=== PATIENT | female | born 1960 | race Caucasian/White ===

== ENCOUNTER 2016-06-27 12:10 | Emergency (ER) | payer MEDICARE, MEDICAID ==
[2016-06-27 12:23] VITALS: BP 118/44
--- NOTE | 2016-06-27 12:40 | ED ---
Lower Extremity - History of Current Complaint Chief Complaint: EDExtremityLower Stated Complaint: LT FOOT INJURY Time Seen by Provider: 06/27/16 12:27 Hx Obtained From: Patient Mechanism Of Injury: Unknown - stepped wrong on tree root 2 days ago and felt a sharp stabbing pain in foot Onset of Pain: Immediate Onset/Duration: Days - 2 Severity Initially: Severe Severity Currently: Moderate Pain Intensity: 7 Timing: Constant Location: Is Discrete @ - L lateral foot Character Of Pain: Sharp, Aching Associated Signs And Symptoms: Positive: Negative Aggravating Factor(s): Standing, Ambulation Alleviating Factor(s): Rest, Elevation Able to Bear Weight: Yes - with pain - Allergies/Home Medications Allergies/Adverse Reactions: Allergies Allergy/AdvReac Type Severity Reaction Status Date / Time Prednisone Allergy Severe GI Upset Verified 05/29/15 13:12 Hydrocodone [From Vicodin] Allergy Intermediate Rash Verified 05/29/15 13:12 Penicillins [PCN] Allergy Intermediate Rash Verified 05/29/15 13:12 Adhesive Tape Allergy Unknown Verified 05/29/15 13:12 Reaction Details Varenicline [From Chantix] Allergy Rash Verified 05/29/15 13:12 PMH/Surg Hx/FS Hx/Imm Hx Previously Healthy: Yes Endocrine/Hematology History: Denies: Hx Diabetes, Hx Thyroid Disease Cardiovascular History: Reports: Hx Angina Denies: Hx Coronary Artery Disease, Hx Hypercholesterolemia, Hx Hypertension , Hx Myocardial Infarction, Hx Valvular Heart Disease Respiratory History: Reports: Hx Chronic Obstructive Pulmonary Disease (COPD) Denies: Hx Asthma GI History: Denies: Hx Ulcer Musculoskeletal History: Denies: Other Musculoskeletal History Neurological History: Denies: Other Neuro Impairments/Disorders Psychiatric History: Denies: Other Psychiatric Issues/Disorders - Cancer History Hx Chemotherapy: No Hx Radiation Therapy: No - Surgical History Surgery Procedure, Year, and Place: gall bladder, lymph node removed, hysterectomy,hemorrhoid removed Infectious Disease History: Denies: Hx Clostridium Difficile, Hx Hepatitis, Hx Human Immunodeficiency Virus (HIV), Hx of Known/Suspected MRSA, Hx Shingles, Hx Tuberculosis, Hx Known/ Suspected VRE, Hx Known/Suspected VRSA, History Other Infectious Disease, Traveled Outside the [place] in Last 30 Days - Family History Known Family History: Positive: None - Social History Occupation: Unemployed Lives: With Family Alcohol Use: None Substance Use Type: Reports: None Smoking Status (MU): Heavy Every Day Tobacco Smoker Type: Cigarettes Amount Used/How Often: 1 ppd Length of Time of Smoking/Using Tobacco: 33 years Have You Smoked in the Last Year: Yes Cessation Counseling: Patient Advised to Stop Review of Systems Constitutional: Negative Cardiovascular: Negative Respiratory: Negative Musculoskeletal: Other - see note Skin: Negative Negative: Bruising Neurological: Negative Psychological: Normal All Other Systems Reviewed And Are Negative: Yes Physical Exam Triage Information Reviewed: Yes Vital Signs On Initial Exam: Initial Vitals Temp Pulse Resp BP Pulse Ox 97.1 F 60 16 118/44 99 06/27/16 12:20 06/27/16 12:20 06/27/16 12:20 06/27/16 12:20 06/27/16 12:20 Vital Signs Reviewed: Yes Appearance: Positive: Well-Appearing, No Pain Distress, Well-Nourished Skin: Positive: Warm, Skin Color Reflects Adequate Perfusion, Dry Respiratory/Lung Sounds: Positive: Clear to Auscultation Cardiovascular: Positive: Normal, RRR, Pulses are Symmetrical in both Upper and Lower Extremities Musculoskeletal: Positive: Strength/ROM Intact, Other - point tenderness L lat dorsal foot Neurological: Positive: Normal, Sensory/Motor Intact, Alert, Oriented to Person Place, Time Psychiatric: Positive: Normal Diagnostics - Vital Signs Vital Signs Temp Pulse Resp BP Pulse Ox 06/27/16 12:20 97.1 F 60 16 118/44 99 - Laboratory Lab Statement: Any lab studies that have been ordered have been reviewed, and results considered in the medical decision making process. Lower Extremity Course/Dx - Diagnoses Differential Diagnosis/HQI/PQRI: Positive: Contusion, Fracture (Closed), Sprain , Strain Provider Diagnoses: Strain of foot, left Discharge - Discharge Plan Condition: Stable Disposition: HOME Patient Education Materials: Muscle Strain (ED) Referrals: Bo Scott DO [Primary Care Provider] - 2 Weeks (as scheduled) Additional Instructions: elevate foot use janay and post-op shoe for 5-7 days. use tylenol or ibuprofen as directed for pain
--- NOTE | 2016-06-27 13:33 | RAD ---
Indication: Pain lateral aspect LEFT mid foot radiating to the toes following injury. Comparison: None. Technique: AP, lateral, and oblique views LEFT foot. Report: Normal articular alignment. No cortical disruption or suspicious trabecular irregularity to suggest fracture. No significant arthropathic change evident. Unremarkable soft tissue contours. IMPRESSION: No traumatic injury evident.
== END 2016-06-27 13:59 | disposition home or self-care (01) ==
LOC: ED 12:10
DX: S96.912A Strain of unspecified muscle and tendon at ankle and foot level, left foot, initial encounter (principal); X50.9XXA Other and unspecified overexertion or strenuous movements or postures, initial encounter; Y93.9 Activity, unspecified; Y92.9 Unspecified place or not applicable; Y99.9 Unspecified external cause status
CPT/HCPCS: 99282

== ENCOUNTER 2017-08-04 07:36 | Emergency (ER) | payer MEDICAID, MEDICARE ==
[2017-08-04 07:52] VITALS: BP 99/51
[2017-08-04] MEDS ORDERED: Albuterol/Ipratropium NEB.SOL* Albuterol 2.5 MG/Ipratropium 0.5 MG 3 ML INH ONE (08:11)
--- NOTE | 2017-08-04 08:16 | UC ---
Luis Crain Gabriel, scribed for Kylah Villa MD on 08/04/17 at 0756 . Respiratory Complaint HPI - HPI Summary HPI Summary: This patient is a 56 year old F [place] [facility] [place] a chief complaint of productive cough and congestion that began yesterday. The patient reports pain with cough. No chest pain. No shortness of breath. pain 0/10 in severity. Patient reports chills, low grade fever, and sore throat. Patient denies nausea , ear pain, and sinus pressure. Pt states she has been exposed to sick persons. Pt states up during night with cough. No OTC meds taken. Smokes 1/2 -1 ppd. Pt has not taken any medication and has not used her inhaler. She declines need inhaler refill. Unknown last prednisone. Hx COPD. Pt also c/o right arm pain and thinks she has osteoarthritis. Pt states she cannot lift it without pain. PT states worse after gardening last week. Pt is RHD. She takes 400mg of ibuprofen prn and last dose was last night. She states it makes it difficult to sleep. She has an appointment with an orthopedic surgeon at the end of the month for this pain. She also gets shots in the joint for the pain and they were working, but not any more. Pt requesting something for pain. No analgesia taken today Patients medication reviewed this visit. - History of Current Complaint Chief Complaint: UCRespiratory Stated Complaint: URI Time Seen by Provider: 08/04/17 07:40 Hx Obtained From: Patient Onset/Duration: Lasting Days - 1, Still Present Timing: Constant Severity Initially: Mild Severity Currently: Mild Pain Intensity: 0 Pain Scale Used: 0-10 Numeric Character: Cough: Productive Associated Signs And Symptoms: Positive: Negative - nausea, ear pain, and sinus pressure - Allergies/Home Medications Allergies/Adverse Reactions: Allergies Allergy/AdvReac Type Severity Reaction Status Date / Time acetaminophen [From Vicodin] Allergy Rash Verified 08/04/17 07:44 Adhesive Tape Allergy Unknown Verified 05/29/15 13:12 Reaction Details hydrocodone [From Vicodin] Allergy Rash Verified 08/04/17 07:44 Penicillins Allergy Rash Verified 08/04/17 07:44 prednisone Allergy GI Upset Verified 08/04/17 07:44 varenicline [From Chantix] Allergy Rash Verified 08/04/17 07:44 PMH/Surg Hx/FS Hx/Imm Hx Previously Healthy: Yes Respiratory History: COPD Cancer History: Cervical Cancer - Surgical History Surgical History: Yes Surgery Procedure, Year, and Place: gall bladder, lymph node removed, hysterectomy, - Family History Known Family History: Positive: Cardiac Disease, Respiratory Disease - COPD, Other - cancer Negative: Renal Disease, Seizure Disorder, Blood Disorder - Social History Occupation: Unemployed Lives: With Family Alcohol Use: Rare Substance Use Type: None Smoking Status (MU): Heavy Every Day Tobacco Smoker Type: Cigarettes Amount Used/How Often: 1 ppd Length of Time of Smoking/Using Tobacco: 33 years Have You Smoked in the Last Year: Yes Household Exposure Type: Cigarettes Review of Systems Constitutional: Fever, Chills ENT: Sore Throat Respiratory: Cough, Other - congestion Musculoskeletal: Other: - right shoulder pain All Other Systems Reviewed And Are Negative: Yes Physical Exam - Summary Physical Exam Summary: Vital Signs Reviewed: Yes A+Ox3, no distress intermittent cough Eyes: Conjunctiva Clear, CANDIE. EOM intact and full ENT: Hearing grossly normal TM x 2 clear, mmoist, uvula midline, no exudate, no erythema Neck: Positive: Supple Respiratory: Positive: No respiratory distress, No accessory muscle use, + BS throughout. scattered wheeze Cardiovascular: RRR nl s1, s2 no m/r CBT <2 sec abd soft + BS nt/nd no guarding, no distension Musculoskeletal Exam: + TTP right anterior shoulder with direct palp. Pain increases with extension and abduction. Little change with PROM. + flex/ext elbow, pronate/supinate no crepitus. no pain along clavicle Neurological: Positive: Alert, + sensation throughout + thumb up, a ok, finger spread 5/5 grasp Psychological: Positive: Normal Response To Family Skin: Positive: no rash, no ecchymosis Triage Information Reviewed: Yes Vital Signs: Initial Vital Signs Temp 99.5 F 08/04/17 07:46 Pulse 67 08/04/17 07:46 Resp 16 08/04/17 07:46 BP 99/51 08/04/17 07:46 Pulse Ox 98 08/04/17 07:46 Vital Signs Reviewed: Yes UC Diagnostic Evaluation - Laboratory O2 Sat by Pulse Oximetry: 98 - Radiology Radiology Interpretation Completed By: Radiologist - Shoulder Xray: 1. OSTEOPENIA.2. MILD OSTEOARTHRITIS. 3. NO ACUTE OSSEOUS INJURY. IF SYMPTOMS PERSIST, RECOMMEND REPEAT IMAGING. Dr. Villa has reviewed this report. - CT CT Interpretation Completed By: Radiologist - CXR: Stigmata of obstructive lung disease. No acute pulmonary or cardiac process evident. Dr. Villa has reviewed this report. Re-Evaluation - Re-Evaluation First Eval Re-Evaluation Time: 09:02 Change: Improved - The patients breathing has improved and her wheezing has resolved. She is declining [place] [facility]. Respiratory Course/Dx - Course Course Of Treatment: Pt presents with 2 complaints: 1) coarse cough and wheeze since last night Pt with scattered wheeze. Will give duo neb, cxr. anticipate prednisone, neb hold abx unless pna, decrese smoke, tessalon pearls. 2) right shoulder - anterior pain - will check imaging recommended motrin/apap. referral to [facility] ortho for ?earlier appt- pt in agreement with plan will offer sling for shoulder rest - Differential Dx/Diagnosis Provider Diagnoses: shoulder pain, right. URI Discharge - Sign-Out/Discharge Documenting (check all that apply): Discharge/Admit/Transfer - Discharge Plan Condition: Stable Disposition: HOME Prescriptions: predniSONE [Prednisone 20 MG TAB] 40 mg PO DAILY #5 tablet Patient Education Materials: Upper Respiratory Infection (ED), Shoulder Pain ( ED) Referrals: Bo Scott DO [Primary Care Provider] - Additional Instructions: For your cough: -Use your albuterol puffer - 2 puffs ever 4 hours for the next 2 days. Use your spacer. Then every 4 hours as needed -Stay well hydrated - avoid excess caffeine and all alcohol - eat regular, healthy meals - your symptoms may last for 7-10 days - take prednisone as prescribed until gone These infections are spread by oral secretions. Do not share eating or drinking utensils. Frequent hand washing is important. Clean items that may get your secretions on them such as cell phones, ipads, computer mouse, television remotes. Once you start to feel better, change your pillowcase and your toothbrush -Contact your doctor to arrange a follow-up appointment this week. Call your doctor, return here or go to the emergency department with any questions or concerns For your Shoulder: Wear sling for comfort and support. Take your arm out of your sling - make small circles in your shoulder and bend/straighten your elbow 3-4 times a day apply ice or heat for comfort and support Okay to alternate ibuprofen (Advil, Motrin) 600mg and Tylenol 1000mg every 3 hours for pain or fever. Take with food. Do NOT take for more than 4-5 days. Contact your orthopedic office to request a sooner appointment - Billing Disposition and Condition Condition: STABLE Disposition: Home The documentation as recorded by the Luis bear Gabriel accurately reflects the service I personally performed and the decisions made by , Kylah Villa MD.
--- NOTE | 2017-08-04 08:42 | RAD ---
INDICATION: Productive cough. COPD. Current tobacco use. COMPARISON: July 17, 2016 CT. TECHNIQUE: Dual energy PA and routine lateral views of the chest were obtained. REPORT: Elevated lung volumes. Mild chronic pleural parenchymal scarring at the medial segment of the RIGHT middle lobe and lingula based on correlation with CT. No suspicious focal pulmonary lesion, compelling alveolar consolidation, pleural effusion, pneumothorax. The heart, pulmonary vasculature, and mediastinal contours are unremarkable. Unremarkable soft tissue contours and osseous structures. IMPRESSION: Stigmata of obstructive lung disease. No acute pulmonary or cardiac process evident.
--- NOTE | 2017-08-04 08:42 | RAD ---
HISTORY: Right anterior shoulder pain COMPARISONS: None VIEWS: 4, Frontal internal rotation, external rotation, outlet, and axillary views of the right shoulder FINDINGS: BONE DENSITY: There is diffuse osteopenia. BONES: There is no displaced fracture. JOINTS: There is mild glenohumeral and a.c. osteoarthritis. ALIGNMENT: There is no dislocation. SOFT TISSUES: Unremarkable. OTHER FINDINGS: None. IMPRESSION: 1. OSTEOPENIA. 2. MILD OSTEOARTHRITIS. 3. NO ACUTE OSSEOUS INJURY. IF SYMPTOMS PERSIST, RECOMMEND REPEAT IMAGING.
== END 2017-08-04 09:15 | disposition home or self-care (01) ==
LOC: UCEAST 07:36
DX: J06.9 Acute upper respiratory infection, unspecified (principal); M25.511 Pain in right shoulder; M85.811 Other specified disorders of bone density and structure, right shoulder; M19.011 Primary osteoarthritis, right shoulder; J44.9 Chronic obstructive pulmonary disease, unspecified; Z85.41 Personal history of malignant neoplasm of cervix uteri; Z88.6 Allergy status to analgesic agent; Z88.5 Allergy status to narcotic agent; Z88.0 Allergy status to penicillin; Z88.8 Allergy status to other drugs, medicaments and biological substances; Z91.048 Other nonmedicinal substance allergy status; Z82.49 Family history of ischemic heart disease and other diseases of the circulatory system; Z83.6 Family history of other diseases of the respiratory system; Z80.9 Family history of malignant neoplasm, unspecified; F17.210 Nicotine dependence, cigarettes, uncomplicated
CPT/HCPCS: 71046; 99213; A9270-GY; G0463

== ENCOUNTER 2017-08-10 09:55 | Emergency (ER) | payer MEDICARE, MEDICAID ==
[2017-08-10] MEDS ORDERED: NS 0.9% 1000 ML* 1,000 ML IV ONE (10:27)
[2017-08-10] MEDS ORDERED: diPHENhydraMINE IV* 50 MG/ML 1 ml VIAL (BENADRYL) SLOW PUSH ONE (10:27)
[2017-08-10 10:43] LABS: Hematocrit 44 % (35-47); Hemoglobin 15.1 g/dl (12.0-16.0); Mean Corpuscular HGB Conc 34 g/dl (31-36); Mean Corpuscular Hemoglobin 30 pg (27-31); Mean Corpuscular Volume 89 fL (80-97); Mean Platelet Volume 7.4 um3 (7.4-10.4); Platelet Count 235 10^3/ul (150-450); Red Blood Count 4.98 10^6/ul (4.00-5.40); Red Cell Distribution Width 15 % (10.5-15)
--- NOTE | 2017-08-10 10:57 | RAD ---
HISTORY: THUNDERCLAP HEADACHE, EVAL FOR [facility] COMPARISONS: July 30, 2006 TECHNIQUE: Multiple contiguous axial CT scans were obtained of the head without intravenous contrast. FINDINGS: HEMORRHAGE/INFARCT: There is no hemorrhage or acute infarct. MASSES/SHIFT: There is no mass or shift. EXTRA-AXIAL SPACES: There are no extra-axial fluid collections. SULCI AND VENTRICLES: The sulci and ventricles are normal in size and position for the patient's stated age. CEREBRUM: There are no focal parenchymal abnormalities. BRAINSTEM: There are no focal parenchymal abnormalities. CEREBELLUM: There are no focal parenchymal abnormalities. VESSELS: The vessels are grossly normal. PARANASAL SINUSES: There is an air-fluid level within the right maxillary sinus. ORBITS: The orbits are unremarkable. BONES AND SOFT TISSUE: No bone or soft tissue abnormalities are noted. OTHER: None IMPRESSION: 1. NO ACUTE INTRACRANIAL PATHOLOGY. 2. MILD SINUS MUCOSAL INFLAMMATORY DISEASE, WITH AN AIR-FLUID LEVEL IN THE RIGHT MAXILLARY SINUS. IN THE CORRECT CLINICAL SETTING, THIS MAY REPRESENT ACUTE SINUSITIS
[2017-08-10] MEDS ORDERED: Magnesium Sulfate 2 GM IV* 2 GM/50 ML BAG IVPB ONE (11:14)
[2017-08-10] MEDS ORDERED: Metoclopramide IV* 5 MG/ML 2 ML VIAL IV SLOW PU ONE (11:14)
[2017-08-10 11:36] LABS: EGFR Non-African American 64.5 (>60)
[2017-08-10] MEDS ORDERED: guaiFENesin/CODIEN 100MG-10MG* 5 ML UDC PO ONE (13:24)
[2017-08-10] MEDS ORDERED: Dexamethasone IV* 4 MG/ML 1 ML (4 MG) IV SLOW PU ONE (13:24)
[2017-08-10] MEDS ORDERED: Iohexol 350* (CONTRAST) 500 ML MDV IV ONE (13:32)
--- NOTE | 2017-08-10 14:25 | RAD ---
HISTORY: OCCIPITAL THUNDERCLAP HEADACHE COMPARISONS: Head CT dated August 04, 2012 TECHNIQUE: Multiple contiguous axial CT scans were obtained of the head and neck after the administration of nonionic intravenous contrast timed to the systemic arterial phase of contrast enhancement. Coronal and sagittal multiplanar reformations are submitted for review. Multiple 3-D maximum intensity projection reconstructions are also submitted for review. FINDINGS: CTA NECK: AORTIC ARCH: There is a normal three-vessel branching pattern of the aortic arch. There is no ostial or proximal stenosis of the cephalic great vessels. RIGHT VERTEBRAL ARTERY: The right vertebral artery is patent along its course, without stenosis. LEFT VERTEBRAL ARTERY: The left vertebral artery is patent along its course, without stenosis. DOMINANCE: The vertebral arteries are codominant. RIGHT COMMON CAROTID ARTERY: The right common carotid artery is patent. The right carotid bifurcation occurs at C3-C4 RIGHT INTERNAL CAROTID ARTERY: There is no right internal carotid artery stenosis by NASCET criteria. RIGHT EXTERNAL CAROTID ARTERY: The right external carotid artery is unremarkable. LEFT COMMON CAROTID ARTERY: The left common carotid artery is patent. The left carotid bifurcation occurs at C3-C4 LEFT INTERNAL CAROTID ARTERY: There is no left internal carotid artery stenosis by NASCET criteria. LEFT EXTERNAL CAROTID ARTERY: The left external carotid artery is unremarkable. VENOUS CIRCULATION: The venous system is unremarkable. SALIVARY GLANDS: The parotid glands, submandibular glands, sublingual glands are normal. NASAL CAVITY/NASOPHARYNX: The nasal cavity and nasopharynx are normal. ORAL CAVITY/OROPHARYNX: The oral cavity is obscured by streak artifact from dental amalgam. The visualized oral cavity and oropharynx are unremarkable. LARYNGEAL APPARATUS/HYPOPHARYNX: The laryngeal apparatus and hypopharynx are normal. UPPER AIRWAY/UPPER ESOPHAGUS: The visualized upper airway and esophagus are normal. LUNG APICES: There is biapical and degenerative change THYROID GLAND: The thyroid gland is normal. LYMPH NODES: There is no lymphadenopathy by size criteria. BONES AND SOFT TISSUES: No bone or soft tissue abnormalities are noted. CTA HEAD: INTRACRANIAL CIRCULATION: There is no aneurysm, vascular malformation, occlusion, or stenosis of the visualized intracranial circulation. The anterior communicating artery complex is clear. Bilateral posterior communicating arteries are identified. VENOUS CIRCULATION: The venous system is unremarkable. PERFUSION: There is no obvious parenchymal perfusion deficit. HEMORRHAGE/INFARCT: There is no hemorrhage or acute infarct. MASSES/SHIFT: There is no mass or shift. EXTRA-AXIAL SPACES: There are no extra-axial fluid collections. SULCI AND VENTRICLES: The sulci and ventricles are normal in size and position for the patient's stated age. CEREBRUM: There are no focal parenchymal abnormalities. BRAINSTEM: There are no focal parenchymal abnormalities. CEREBELLUM: There are no focal parenchymal abnormalities. PARANASAL SINUSES: There are-fluid levels within the maxillary sinuses bilaterally. ORBITS: The orbits are unremarkable. BONES AND SOFT TISSUE: Mild degenerative changes are noted. OTHER: There is no abnormal enhancement. IMPRESSION: 1. NO ANEURYSM, VASCULAR MALFORMATION, OCCLUSION, OR STENOSIS OF THE VISUALIZED INTRACRANIAL CIRCULATION. 2. NO INTERNAL CAROTID ARTERY STENOSIS BY NASCET CRITERIA. 3. EMPHYSEMA. 4. MILD SINUS MUCOSAL INFLAMMATORY DISEASE, WITH AIR-FLUID LEVELS IN THE MAXILLARY SINUSES BILATERALLY.. IN THE CORRECT CLINICAL SETTING, THIS MAY REPRESENT ACUTE SINUSITIS CPT II Codes: 3100F
[2017-08-10 15:37] VITALS: BP 113/62
--- NOTE | 2017-08-10 21:43 | CONS ---
NEUROLOGY CONSULTATION REPORT: DATE OF CONSULT: 08/10/17 CONSULTING PROVIDER: Dr. Tao Chacon. REASON FOR CONSULT: Headache. CHIEF COMPLAINT: Headache. HISTORY OF PRESENT ILLNESS: Ms. Luiz Cristina is a 56-year-old female with history of arthritis and tobacco use, who has occasional headaches that resolve with Excedrin, 2-3 times a month, who had a sudden onset in severe headache mostly localized to the posterior head region. The headache started approximately at 12-1:00 a.m. At baseline, the patient stated that she has trouble lying on the back of her head due to tenderness around the back of the head. Therefore, she usually sleeps on her side. She woke up at 12-1:00 a.m. in the morning due to postnasal drip and thick phlegm that was going in the back of her throat making her cough. She was coughing for about an half hour before she suddenly developed the headache. The headache was described as sharp, 10/10 in severity, currently it is 1-2/10 in severity. The headache radiated up to the lateral surface of the ears and to the frontal region. The headache was constant for about 3 hours, but then she had about 30 minutes of sleep and then she woke up again with severe pain. The headache seems to exacerbate with the cough. She denied any visual disturbance or nausea/ vomiting. The patient had a CT head and CTA head and neck that showed no acute intracranial abnormality or large vessel occlusion or intracranial aneurysms. She has no family history of intracerebral aneurysm. The patient has received Reglan, magnesium, Benadryl, and Decadron in the ED, and that seemed to have significantly reduced her headaches. Dr. Chacon was concerned that the patient may have dysmetria to [id number] on the left side. I was unable to appreciate that on my examination. However, the patient does have chronic posture-induced tremors. She drinks 1 pot of coffee a day and she just recently drank a large cup of coffee which seem to increase her tremors. PAST MEDICAL HISTORY: Arthritis, degenerative disk disease of the lumbar spine , bone spurs, shoulder arthritis, sinus infections, tobacco use since the age of 11 where she averages 1 pack per day, and history of tension headache. PAST SURGICAL HISTORY: Hysterectomy and cholecystectomy. MEDICATIONS: 1. Flexeril. 2. Vitamins. ALLERGIES: VICODIN, PENICILLIN, CHANTIX, and ADHESIVE TAPE. FAMILY HISTORY: She has no family history of stroke or seizures. She has no family history of migraines. SOCIAL HISTORY: The patient is . She is on disability due to chronic pain. She rarely uses alcohol. She smokes tobacco 1 pack per day for over 40 years. REVIEW OF SYSTEMS: A 14-point review of systems was obtained and otherwise negative except for what was mentioned in the HPI. PHYSICAL EXAM: Vitals: Temperature 98.3, pulse 60, respiratory rate of 18, oxygen saturation 97%, blood pressure of 113/62. General: Well-nourished, well -developed female, in no acute distress. Head: Normocephalic without obvious abnormalities. She had significant tenderness to deep palpation in the occipital notch regions bilaterally with triggering radiating pain up to the rostral portion of the head. She had no superficial temporal artery tenderness. She had no jaw claudication. Eyes: Conjunctivae/corneas are clear. Funduscopic examination did not reveal any blurring of the disc margin. Neck: Supple and symmetrical. There is no carotid bruit. Lungs are clear to auscultation bilaterally. Cardiovascular: Regular rate and rhythm. Normal S1, S2. Extremities: Normal range of motion with no cyanosis. Skin: No skin lesions or laceration. Psych: Affect is broad and normal mood. Easy to establish rapport. The patient had high frequency tremor, left worse than right. She has no cogwheel rigidity. Neurological Examination: Mental Status : Awake and alert, oriented to person, place, time, and general circumstances. Speech and language including expression, naming, repetition, and comprehension were assessed and found to be normal. Cranial Nerves: Normal confrontation bilaterally. Pupils mid range and reactive to light. Normal consensual response. Extraocular muscles are intact. There is no ptosis. Sensation is intact in the forehead, cheeks, and jaw region. There is no facial droop or facial asymmetry. Able to hear throughout the history process. Symmetrical palatal elevation and normal strength against resistance to shoulder shrug. Tongue is symmetrical and midline with no atrophy or fasciculation. Motor: No abnormal movements or pronator drift. Normal bulk and tone throughout. No fasciculations. Neck extension 5/5. Shoulder range of motion is full. She has 5/5 strength throughout. Reflexes: 2+ throughout the upper and lower extremities. Reflexes: Sensation is intact to light touch throughout. Normal vibratory sensation at the toes. Coordination: Normal [id number] and rapid alternating movements. Gait and Station: Narrow based, normal stance and gait. LABORATORY DATA: The patient has a WBC of 7.1, hemoglobin of 15.1, platelets of 235. Sodium 140, potassium 4.4. ASSESSMENT: Ms. Luiz Cristina is a 56-year-old female with: 1. History of chronic tension-like headaches, who developed cough-induced occipital neuralgia. She had tenderness to the occipital notch region bilaterally. I do not suspect she had a subarachnoid hemorrhage given the negative CT head and CTA within 10 hours of the symptom onset. Her headaches have been well controlled with Reglan and Decadron. 2. Tobacco abuse - counseling was done. The patient is contemplating on discontinuing tobacco use. 3. The patient has essential tremor versus physiological tremor. She probably has physiological tremor related to her excessive caffeine intake. She also, rarely, but does use albuterol inhaler, which can exacerbate her tremor. There was no dysmetria noted on examination. RECOMMENDATIONS: At this time, I do not recommend any further therapy, but continue taking nonsteroidal anti-inflammatory for the headaches. She should not take more than 7 tablets on NSAID a week. If the headaches persist, then gabapentin 100 mg 3 times a day to slowly titrate to 300 mg 3 times a day can be considered. We discussed occipital nerve block procedure, which can be done in the office or by in a pain management clinic. At this time, the patient is not interested in any long- term therapy since her headache had significantly subsided. She should follow up with a neurologist. The contact information for [facility] was provided. I will sign off. TIME SPENT: I spent a total of 60 minutes and greater than 50% of that was spent directly reviewing the medical chart, obtaining history, examining the patient, education and counseling, and discussing the treatment plan as discussed above. I also discussed the treatment with Dr. Tao Chacon, who is comfortable in discharging the patient today. [id number]/[facility] #: [id number] [place]
--- NOTE | 2017-08-24 07:30 | ED ---
Mar Crain Simon, scribed for Tao Chacon MD on 08/10/17 at 1100 . Headache - HPI Summary HPI Summary: This patient is a 56 year old F presenting to [facility] with a chief complaint of GUZMAN from coughing since 0000 today, when she woke up with an uncontrollable cough. She stated my heads exploding. Pt doubts this is a migraine. She endorsed the pain started in back near spinal cord, but is now diffuse to whole head. Pts GUZMAN maximal at onset, and endorses its going down. She endorses sinus sx. Pt hydrated without relief, talking aggravates Sx, as does light. Chin to chest does not cause pain. Pt endorses mild nausea and chills. Pt smokes. Pt endorses PMHx HPV. Pt denies FHx for aneurisms. Pt just discontinued prednisone taken for 5 days for bronchitis. Pt did not feel stable enough to drive. Pt endorses allergies to penicillin, Vicodin, Chantix, and tape adhesive. - History Of Current Complaint Chief Complaint: EDHeadache Stated Complaint: HEADACHE Time Seen by Provider: 08/10/17 10:18 Hx Obtained From: Patient Onset/Duration: Started hours ago Initially Headache Was: Initial Pain Scale(0-10)= - 10, Severe Timing: Constant, Hours Location of Headache: Diffuse Aggravating Factor: Bright Lights, Other - speaking Associated Signs And Symptoms: Nausea - Allergies/Home Medications Allergies/Adverse Reactions: Allergies Allergy/AdvReac Type Severity Reaction Status Date / Time acetaminophen [From Vicodin] Allergy Rash Verified 08/10/17 09:57 Adhesive Tape Allergy Unknown Verified 08/10/17 09:57 Reaction Details hydrocodone [From Vicodin] Allergy Rash Verified 08/10/17 09:57 Penicillins Allergy Rash Verified 08/10/17 09:57 prednisone Allergy GI Upset Verified 08/10/17 09:57 varenicline [From Chantix] Allergy Rash Verified 08/10/17 09:57 Home Medications: Home Medications Aspirin/Acetaminophen/Caffeine [Excedrin Migraine Caplet] 2 cap PO Q6H PRN 08/10 [History Confirmed 08/10/17] Dm/PE/Acetaminophen/Doxylamine [Severe Cold & Flu Ni... 5-6.25-10-325 mg/15Ml] 30 ml PO Q6H PRN 08/10/17 [History Confirmed 08/10/17] guaiFENesin ER TAB [Mucinex*] 600 mg PO BID PRN 08/10/17 [History Confirmed 02/15] PMH/Surg Hx/FS Hx/Imm Hx Endocrine/Hematology History: Denies: Hx Diabetes, Hx Thyroid Disease Cardiovascular History: Reports: Hx Angina Denies: Hx Coronary Artery Disease, Hx Hypercholesterolemia, Hx Hypertension , Hx Myocardial Infarction, Hx Valvular Heart Disease Respiratory History: Reports: Hx Chronic Obstructive Pulmonary Disease (COPD) Denies: Hx Asthma GI History: Denies: Hx Ulcer Musculoskeletal History: Denies: Other Musculoskeletal History Sensory History: Denies: Hx Legally Blind Opthamlomology History: Denies: Hx Legally Blind EENT History: Denies: Hx Deafness Neurological History: Reports: Hx Headaches Denies: Other Neuro Impairments/Disorders Psychiatric History: Denies: Other Psychiatric Issues/Disorders - Cancer History Cancer Type, Location and Year: cerviacl Hx Chemotherapy: No Hx Radiation Therapy: No - Surgical History Surgery Procedure, Year, and Place: gall bladder, lymph node removed, hysterectomy, Infectious Disease History: No Infectious Disease History: Denies: Hx Clostridium Difficile, Hx Hepatitis, Hx Human Immunodeficiency Virus (HIV), Hx of Known/Suspected MRSA, Hx Shingles, Hx Tuberculosis, Hx Known/ Suspected VRE, Hx Known/Suspected VRSA, History Other Infectious Disease, Traveled Outside the [place] in Last 30 Days - Family History Known Family History: Positive: Cardiac Disease, Respiratory Disease - COPD, Other - cancer Negative: Renal Disease, Seizure Disorder, Blood Disorder - Social History Alcohol Use: Rare Substance Use Type: Reports: None Smoking Status (MU): Heavy Every Day Tobacco Smoker Type: Cigarettes Amount Used/How Often: 1 ppd Length of Time of Smoking/Using Tobacco: 33 years Have You Smoked in the Last Year: Yes Review of Systems Positive: Chills. Negative: Fever Positive: Photophobia. Negative: Erythema Positive: Sore Throat, Other - Sinus sx Negative: Chest Pain Positive: Cough. Negative: Shortness Of Breath Positive: Nausea. Negative: Vomiting Negative: dysuria, hematuria Negative: Arthralgia, Edema Negative: Rash Neurological: Other - NEGATIVE: Dizziness Positive: Headache All Other Systems Reviewed And Are Negative: Yes Physical Exam - Summary Physical Exam Summary: Constitutional: Well-developed, Well-nourished, Alert. (-) Distressed Skin: Warm, Dry HENT: Normocephalic; Atraumatic Eyes: Conjunctiva normal Neck: Musculoskeletal ROM normal neck. (-) JVD, (-) Stridor, (-) Tracheal deviation Cardio: Rhythm regular, rate normal, Heart sounds normal; Intact distal pulses; The pedal pulses are 2+ and symmetric. Radial pulses are 2+ and symmetric. (-) Murmur Pulmonary/Chest wall: Effort normal. (-) Respiratory distress, (-) Wheezes, (-) Rales Abd: Soft, (-), epigastric tenderness, (-) Distension, (-) Guarding, (-) Rebound Musculoskeletal: (-) Edema Lymph: (-) Cervical adenopathy Neuro: Alert, Oriented x3, dysmetria with [id number] test on left side. minimal improvement with IV removed Psych: Mood and affect Normal Triage Information Reviewed: Yes Vital Signs On Initial Exam: Initial Vitals Temp Pulse Resp BP Pulse Ox 98.2 F 58 16 122/73 97 08/10/17 09:57 08/10/17 09:57 08/10/17 09:57 08/10/17 09:57 08/10/17 09:57 Vital Signs Reviewed: Yes - [place] Coma Scale Best Eye Response: 4 - Spontaneous Best Motor Response: 6 - Obeys Commands Best Verbal Response: 5 - Oriented Coma Scale Total: 15 Diagnostics - Vital Signs Vital Signs Temp Pulse Resp BP Pulse Ox 08/10/17 09:57 98.2 F 58 16 122/73 97 - Laboratory Result Diagrams: 08/10/17 10:31 08/10/17 10:31 Lab Statement: Any lab studies that have been ordered have been reviewed, and results considered in the medical decision making process. - CT Brain CT Interpretation Completed By: Radiologist - 1. NO ACUTE INTRACRANIAL PATHOLOGY. 2. MILD SINUS MUCOSAL INFLAMMATORY DISEASE, WITH AN AIR-FLUID LEVEL IN THE RIGHT MAXILLARY SINUS. IN THE CORRECT CLINICAL SETTING, THIS MAY REPRESENT ACUTE SINUSITIS Dr. Chacon reviewed this radiology report. CTA head CT Interpretation Completed By: Radiologist - 1. NO ANEURYSM, VASCULAR MALFORMATION, OCCLUSION, OR STENOSIS OF THE VISUALIZED INTRACRANIAL CIRCULATION. 2. NO INTERNAL CAROTID ARTERY STENOSIS BY NASCET CRITERIA. 3. EMPHYSEMA. 4. MILD SINUS MUCOSAL INFLAMMATORY DISEASE, WITH AIR-FLUID LEVELS IN THE MAXILLARY SINUSES BILATERALLY.. IN THE CORRECT CLINICAL SETTING, THIS MAY REPRESENT ACUTE SINUSITIS Dr. Chacon has reviewed this report. Re-Evaluation - Re-Evaluation First Eval Re-Evaluation Time: 13:26 Comment: Discussed CTA head, pt is willing. Pt reports sinus sx now as well. Second Eval Re-Evaluation Time: 13:34 Change: Improved - still 2/10 GUZMAN Comment: Finished physical exam, removed IV with minimal improvement to dysmetria. Headache Course/Dx - Course Course Of Treatment: This patient is a 56 year old F presenting to [facility] with a chief complaint of GUZMAN from coughing since 0000 today, when she woke up with an uncontrollable cough. She endorsed the pain started in back near spinal cord, but is now diffuse to whole head. Pt's GUZMAN maximal at onset. Pt hydrated without relief, talking aggravates Sx, as does light. Chin to chest does not cause pain. Pt endorses mild nausea and chills. CT Brain revealed possible acute sinusitis. CTA head revealed possible acute sinusitis. Sensitivity of head ct for subarachnoid hemorrhage 6 hrs post sx onset 100 sensitivity. Pt presented 10.5 hrs so 93% sensitivity, discussed whether cta head would help to guide treatment and eval for possible hemorrhage. Also discussed LP maybe limited utility. Dr. Vera recommended cta head. Consult with Dr. Murrell 1316 for coming in to evaluate in ED. Consult with Dr. Murrell 1511, dx occipital neuralgia, recommends D/C and taking Gabapentin if the problem persists. - Diagnoses Provider Diagnoses: Occipital neuralgia - Physician Notifications Discussed Care Of Patient With: Desean Vera Time Discussed With Above Provider: 13:16 Instructed by Provider To: Other - sensitivity of head ct for subarachnoid hemorrhage 6 hrs post sx onset 100 sensitivity. Pt presented 10.5 hrs so 93% sensitivity, discussed whether cta head would help to guide treatment and eval for possible hemorrhage. Also discussed LP maybe limited utility. Dr. Vera recommended cta head. Discharge - Sign-Out/Discharge Documenting (check all that apply): Discharge/Admit/Transfer - discharge - Discharge Plan Condition: Stable Disposition: HOME Referrals: Bo Scott DO [Primary Care Provider] - Additional Instructions: Get non-drowsy allergy medication Claritin. RETURN TO THE EMERGENCY DEPARTMENT FOR ANY CHANGING OR WORSENING SYMPTOMS. - Billing Disposition and Condition Condition: STABLE Disposition: Home Consult Consult: [address] Murrell in regards to Dr. Murrell evaluating pt in ED. After evaluation, 1510, consult with Dr. Murrell who endorsed occipital neuralgia. He recommended D/C and follow up with him in 2-3 days, as well as taking gabapentin if the problem persists. The documentation as recorded by the Mar bear Simon accurately reflects the service I personally performed and the decisions made by me, Tao Chacon MD.
== END 2017-08-10 15:36 | disposition home or self-care (01) ==
LOC: ED 09:55
DX: M54.81 Occipital neuralgia (principal); J43.9 Emphysema, unspecified; F17.210 Nicotine dependence, cigarettes, uncomplicated; Z88.0 Allergy status to penicillin; Z88.5 Allergy status to narcotic agent; Z88.8 Allergy status to other drugs, medicaments and biological substances
CPT/HCPCS: 36415; 70450; 70496; 70498; 80053; 85027; 85652; 86140; 96365; 96375; 99282; A9270-GY; J1100; J1200; J2765; J3475; Q9967

== ENCOUNTER 2017-08-14 15:32 | Inpatient (IN) | payer MEDICARE, MEDICAID ==
[2017-08-14] MEDS ORDERED: NS 0.9% 1000 ML* 1,000 ML IV ONE (15:35)
[2017-08-14] MEDS ORDERED: cefTRIAXone(*) 1 GM in NS 0.9% 50 ML* 50 ML IVPB ONE (15:35)
--- NOTE | 2017-08-14 16:11 | RAD ---
HISTORY: sepsis COMPARISONS: August 04, 2017 VIEWS: 1: frontal portable view of the chest at 3:58 PM FINDINGS: LINES AND TUBES: None. CARDIOMEDIASTINAL SILHOUETTE: The cardiomediastinal silhouette is normal for portable technique. PLEURA: The costophrenic angles are sharp. No pleural abnormalities are noted. LUNG PARENCHYMA: The lungs are clear. ABDOMEN: The upper abdomen is clear. There is no subphrenic gas. BONES AND SOFT TISSUES: No bone or soft tissue abnormalities are noted. IMPRESSION: NO ACTIVE CARDIOPULMONARY DISEASE.
[2017-08-14 16:23] LABS: ABS Basophils 0.1 10^3/ul (0-0.2); ABS Eosinophils 0.1 10^3/ul (0-0.6); ABS Lymphocytes 2.6 10^3/ul (1.0-4.8); ABS Monocytes 0.6 10^3/ul (0-0.8); ABS Neutrophils 6.2 10^3/ul (1.5-7.7); ABS Nucleated RBC 0 10^3/ul; Eosinophil % 0.8 % (0-6); Hematocrit 46 % (35-47); Hemoglobin 15.8 g/dl (12.0-16.0); Lymphocyte % 27.3 % (25-47); Mean Corpuscular HGB Conc 35 g/dl (31-36); Mean Corpuscular Hemoglobin 31 pg (27-31); Mean Corpuscular Volume 88 fL (80-97); Mean Platelet Volume 7.6 um3 (7.4-10.4); Nucleated Red Blood Cells % 0.1; Platelet Count 233 10^3/ul (150-450); Red Blood Count 5.18 10^6/ul (4.00-5.40); Red Cell Distribution Width 14 % (10.5-15); White Blood Count 9.6 10^3/ul (3.5-10.8)
[2017-08-14 16:37] LABS: INR 0.99 (0.77-1.02)
[2017-08-14 16:43] LABS: EGFR Non-African American 70.9 (>60)
[2017-08-14] MEDS ORDERED: levETIRAcetam IV* 1,000 MG in NS 0.9% 100 ML* 100 ML IVPB ONE (17:33)
--- NOTE | 2017-08-14 17:34 | RAD ---
HISTORY: fall, possible injury. Altered COMPARISONS: December 22, 2008 TECHNIQUE: Multiple contiguous axial CT scans were obtained of the cervical spine without intravenous contrast, with coronal and sagittal multiplanar reformations. FINDINGS: BRAIN: The visualized brain is unremarkable CENTRAL CANAL: Evaluation of the central canal is limited on CT technique; however, there is no obvious canalicular mass or epidural hemorrhage. ALIGNMENT: There is straightening of the cervical lordosis. VERTEBRAL BODIES: The odontoid process is intact. The atlantoaxial intervals are symmetric. The vertebral bodies are normal in attenuation, without fracture. There is osteopenia. JOINTS: There is uncovertebral and facet osteoarthritis. There is osteoarthritis of the atlantoaxial articulation. MUSCULATURE: Unremarkable INTERVERTEBRAL DISCS: There is diffuse loss of intervertebral disc height. AXIAL IMAGES: C2-C3: There is no osseous neural foraminal narrowing or central canal stenosis. C3-C4: There is no osseous neural foraminal narrowing or central canal stenosis. C4-C5: There is no osseous neural foraminal narrowing or central canal stenosis. C5-C6: There is moderate bilateral neuroforaminal narrowing. There is no osseous central canal stenosis. C6-C7: There is no osseous neural foraminal narrowing or central canal stenosis. C7-T1: There is no osseous neural foraminal narrowing or central canal stenosis. SOFT TISSUES: The visualized soft tissues of the neck are unremarkable. The prevertebral fat stripe is preserved. OTHER: None. IMPRESSION: DEGENERATIVE CHANGES. NO ACUTE OSSEOUS INJURY TO THE CERVICAL SPINE.
--- NOTE | 2017-08-14 17:35 | RAD ---
HISTORY: altered level of consciousness COMPARISONS: August 10, 2017 CTA dated August 10, 2012 TECHNIQUE: Multiple contiguous axial CT scans were obtained of the head without intravenous contrast. FINDINGS: HEMORRHAGE/INFARCT: There is high attenuation material within the sulci of the right frontal lobe and left parietal lobe. Elsewhere, there is no hemorrhage or acute infarct. MASSES/SHIFT: There is no mass or shift. EXTRA-AXIAL SPACES: As noted above, there is high attenuation material within the sulci of the right frontal and left parietal lobe SULCI AND VENTRICLES: The sulci and ventricles are normal in size and position for the patient's stated age. CEREBRUM: There are no focal parenchymal abnormalities. BRAINSTEM: There are no focal parenchymal abnormalities. CEREBELLUM: There are no focal parenchymal abnormalities. VESSELS: The vessels are grossly normal. PARANASAL SINUSES: There are-fluid levels within the maxillary sinuses bilaterally. ORBITS: The orbits are unremarkable. BONES AND SOFT TISSUE: No bone or soft tissue abnormalities are noted. OTHER: None IMPRESSION: 1. HIGH ATTENUATION MATERIAL WITHIN THE SULCI OF THE RIGHT FRONTAL LOBE AND LEFT PARIETAL LOBE. THE DIFFERENTIAL INCLUDES SUBARACHNOID HEMORRHAGE. THIS IS NOT A TYPICAL ANEURYSMAL PATTERN OF HEMORRHAGE. THIS MAY RESENT COUP/CONTRECOUP HEMORRHAGE IN THE SETTING OF TRAUMA. 2. ALTERNATIVELY, PROTEINACEOUS MATERIAL, INCLUDING THE SETTING OF MENINGITIS, MAY APPEAR DENSE ON CT. 3. MODERATE SINUS MUCOSAL INFLAMMATORY DISEASE, WITH AIR-FLUID LEVELS IN THE MAXILLARY SINUSES BILATERALLY. IN THE CORRECT CLINICAL SETTING, THIS MAY REPRESENT ACUTE SINUSITIS PRELIMINARY FINDINGS WERE DISCUSSED WITH DR. ANSARI IN THE EMERGENCY DEPARTMENT AT APPROXIMATELY 5:20 PM ON AUGUST 14, 2017.
[2017-08-14] MEDS ORDERED: Ondansetron INJ* 2 MG/ML VIAL IV ONE (17:42)
[2017-08-14] MEDS ORDERED: Ondansetron ODT TAB* 4 MG ONE (17:45)
[2017-08-14] MEDS ORDERED: Ondansetron ODT TAB* 4 MG PO ONE (17:47)
[2017-08-14] MEDS ORDERED: Ondansetron 40 MG VIAL* 2 MG/ML 20 ML VIAL IV PRN (18:37)
[2017-08-14] MEDS ORDERED: guaiFENesin ER TAB 600 MG PO PRN (18:49)
[2017-08-14] MEDS ORDERED: Docusate CAP* 100 MG PO PRN (18:53)
--- NOTE | 2017-08-14 19:07 | ED ---
Larry Crain Jade, scribed for Emeterio Caraballo MD on 08/14/17 at 1618 . Syncope/Near Syncope - HPI Summary HPI Summary: Pt is a 56 y/o female BIBA who c/o generalized weakness. She states the weakness started 3 days ago, but today she was found on the floor of her driveway. Pt is unsure how long she was on the ground. She also complains of dizziness and headache. She states she was given headache medication. Pt is on a muscle relaxer, Zofran, and Doxycycline. She has a recent change in medications due to a change in doctors. Pt is wearing a neck brace due to her neck issues. Pt is a poor historian. She denies alcohol or drugs. Pt is a smoker. - History Of Current Complaint Chief Complaint: EDNeckComplaint Time Seen by Provider: 08/14/17 15:56 Hx Obtained From: Patient Onset/Duration: Sudden Onset, Lasting Days - 3 days Context: Unwitnessed Activity At Onset: Unknown Aggravating Factor(s): Nothing Alleviating Factor(s): Nothing Associated Signs And Symptoms: Dizzy, Headache - Allergies/Home Medications Allergies/Adverse Reactions: Allergies Allergy/AdvReac Type Severity Reaction Status Date / Time acetaminophen [From Vicodin] Allergy Rash Verified 08/14/17 15:55 Adhesive Tape Allergy Unknown Verified 08/14/17 15:55 Reaction Details hydrocodone [From Vicodin] Allergy Rash Verified 08/14/17 15:55 Penicillins Allergy Rash Verified 08/14/17 15:55 prednisone Allergy GI Upset Verified 08/14/17 15:55 varenicline [From Chantix] Allergy Rash Verified 08/14/17 15:55 Home Medications: Home Medications Budesonide/Formote 160/4.5(NF) [Symbicort 160/4.5 (NF)] 2 puff INH BID 08/14/17 [History Confirmed 08/14/17] Butalb/Acetamin/Caff TAB* [Fioricet TAB*] 1 tab PO Q4HR PRN 08/14/17 [History Confirmed 08/14/17] DOXYcycline CAP(*) [DOXYcycline 100MG CAP(*)] 100 mg PO BID 08/14/17 [History Confirmed 08/14/17] Fluticasone NASAL SPRAY 50MCG* [Flonase NASAL SPRAY 50MCG*] 2 spray BOTH NARES DAILY 08/14/17 [History Confirmed 08/14/17] Meloxicam(NF) [Mobic(NF)] 7.5 mg PO DAILY 08/14/17 [History Confirmed 08/14/17] Ondansetron TAB* [Zofran 4 MG Tab*] 4 mg PO BID PRN 08/14/17 [History Confirmed 08/14/17] PMH/Surg Hx/FS Hx/Imm Hx Endocrine/Hematology History: Denies: Hx Diabetes, Hx Thyroid Disease Cardiovascular History: Reports: Hx Angina Denies: Hx Coronary Artery Disease, Hx Hypercholesterolemia, Hx Hypertension , Hx Myocardial Infarction, Hx Valvular Heart Disease Respiratory History: Reports: Hx Chronic Obstructive Pulmonary Disease (COPD) Denies: Hx Asthma GI History: Denies: Hx Ulcer Musculoskeletal History: Denies: Other Musculoskeletal History Neurological History: Denies: Other Neuro Impairments/Disorders Psychiatric History: Denies: Other Psychiatric Issues/Disorders - Cancer History Cancer Type, Location and Year: cervical Hx Chemotherapy: No Hx Radiation Therapy: No - Surgical History Surgery Procedure, Year, and Place: gall bladder, lymph node removed, hysterectomy, Infectious Disease History: No Infectious Disease History: Denies: Hx Clostridium Difficile, Hx Hepatitis, Hx Human Immunodeficiency Virus (HIV), Hx of Known/Suspected MRSA, Hx Shingles, Hx Tuberculosis, Hx Known/ Suspected VRE, Hx Known/Suspected VRSA, History Other Infectious Disease, Traveled Outside the [place] in Last 30 Days - Family History Known Family History: Positive: Cardiac Disease, Respiratory Disease - COPD, Other - cancer Negative: Renal Disease, Seizure Disorder, Blood Disorder - Social History Alcohol Use: Rare Substance Use Type: Reports: None Smoking Status (MU): Heavy Every Day Tobacco Smoker Type: Cigarettes Amount Used/How Often: 1 ppd Length of Time of Smoking/Using Tobacco: 33 years Have You Smoked in the Last Year: Yes Review of Systems Negative: Fever Neurological: Other - Dizziness Positive: Headache, Weakness All Other Systems Reviewed And Are Negative: Yes Physical Exam - Summary Physical Exam Summary: Appearance: Well appearing, no pain distress Skin: warm, dry, reflects adequate perfusion Head/face: normal. No swelling. Eyes: EOMI, pupils mid-range and reactive ENT: Mucus membrane tacky. No sinus crushing tenderness. Neck: supple, midline neck tenderness Respiratory: CTA, breath sounds present Cardiovascular: RRR, pulses symmetrical Abdomen: non-tender, soft Bowel Sounds: present Musculoskeletal: normal, strength/ROM intact Neuro: normal, sensory motor intact, A&Ox3. No focal deficit. Global weakness. Able to sit up on her own. Triage Information Reviewed: Yes Vital Signs On Initial Exam: Initial Vitals Pulse BP Pulse Ox 49 165/69 93 08/14/17 15:41 08/14/17 15:41 08/14/17 15:41 Vital Signs Reviewed: Yes Diagnostics - Vital Signs Vital Signs Temp Pulse Resp BP Pulse Ox 08/14/17 15:57 93 08/14/17 15:50 98.6 F 65 19 165/69 90 08/14/17 15:42 53 92 08/14/17 15:41 49 165/69 93 - Laboratory Lab Results: Lab Results 08/14/17 08/14/17 08/14/17 Range/Units 16:10 16:10 16:10 WBC 9.6 (3.5-10.8) 10^3/ul RBC 5.18 (4.00-5.40) 10^6/ul Hgb 15.8 (12.0-16.0) g/dl Hct 46 (35-47) % MCV 88 (80-97) fL MCH 31 (27-31) pg MCHC 35 (31-36) g/dl RDW 14 (10.5-15) % Plt Count 233 (150-450) 10^3/ul MPV 7.6 (7.4-10.4) um3 Neut % (Auto) 64.8 (38-83) % Lymph % (Auto) 27.3 (25-47) % [place] % (Auto) 6.2 (0-7) % Eos % (Auto) 0.8 (0-6) % Baso % (Auto) 0.9 (0-2) % Absolute Neuts (auto) 6.2 (1.5-7.7) 10^3/ul Absolute Lymphs (auto) 2.6 (1.0-4.8) 10^3/ul Absolute Monos (auto) 0.6 (0-0.8) 10^3/ul Absolute Eos (auto) 0.1 (0-0.6) 10^3/ul Absolute Basos (auto) 0.1 (0-0.2) 10^3/ul Absolute Nucleated RBC 0 10^3/ul Nucleated RBC % 0.1 INR (Anticoag Therapy) 0.99 (0.77-1.02) APTT 29.3 (26.0-36.3) seconds Sodium 139 (135-145) mmol/L Potassium 3.8 (3.5-5.0) mmol/L Chloride 104 (101-111) mmol/L Carbon Dioxide 23 (22-32) mmol/L Anion Gap 12 H (2-11) mmol/L BUN 11 (6-24) mg/dL Creatinine 0.83 (0.51-0.95) mg/dL Est GFR ( Amer) 91.1 (>60) Est GFR (Non-Af Amer) 70.9 (>60) BUN/Creatinine Ratio 13.3 (8-20) Glucose 101 H (70-100) mg/dL Lactic Acid (0.5-2.0) mmol/L Calcium 9.5 (8.6-10.3) mg/dL Total Bilirubin 0.80 (0.2-1.0) mg/dL AST 46 H (13-39) U/L ALT 100 H (7-52) U/L Alkaline Phosphatase 75 (34-104) U/L Troponin I 0.00 (<0.04) ng/mL Total Protein 6.8 (6.4-8.9) g/dL Albumin 4.0 (3.2-5.2) g/dL Globulin 2.8 (2-4) g/dL Albumin/Globulin Ratio 1.4 (1-3) Serum Alcohol < 10 (<10) mg/dL 08/14/17 Range/Units 16:10 WBC (3.5-10.8) 10^3/ul RBC (4.00-5.40) 10^6/ul Hgb (12.0-16.0) g/dl Hct (35-47) % MCV (80-97) fL MCH (27-31) pg MCHC (31-36) g/dl RDW (10.5-15) % Plt Count (150-450) 10^3/ul MPV (7.4-10.4) um3 Neut % (Auto) (38-83) % Lymph % (Auto) (25-47) % [place] % (Auto) (0-7) % Eos % (Auto) (0-6) % Baso % (Auto) (0-2) % Absolute Neuts (auto) (1.5-7.7) 10^3/ul Absolute Lymphs (auto) (1.0-4.8) 10^3/ul Absolute Monos (auto) (0-0.8) 10^3/ul Absolute Eos (auto) (0-0.6) 10^3/ul Absolute Basos (auto) (0-0.2) 10^3/ul Absolute Nucleated RBC 10^3/ul Nucleated RBC % INR (Anticoag Therapy) (0.77-1.02) APTT (26.0-36.3) seconds Sodium (135-145) mmol/L Potassium (3.5-5.0) mmol/L Chloride (101-111) mmol/L Carbon Dioxide (22-32) mmol/L Anion Gap (2-11) mmol/L BUN (6-24) mg/dL Creatinine (0.51-0.95) mg/dL Est GFR ( Amer) (>60) Est GFR (Non-Af Amer) (>60) BUN/Creatinine Ratio (8-20) Glucose (70-100) mg/dL Lactic Acid 0.7 (0.5-2.0) mmol/L Calcium (8.6-10.3) mg/dL Total Bilirubin (0.2-1.0) mg/dL AST (13-39) U/L ALT (7-52) U/L Alkaline Phosphatase (34-104) U/L Troponin I (<0.04) ng/mL Total Protein (6.4-8.9) g/dL Albumin (3.2-5.2) g/dL Globulin (2-4) g/dL Albumin/Globulin Ratio (1-3) Serum Alcohol (<10) mg/dL Result Diagrams: 08/14/17 16:10 08/14/17 16:10 Lab Statement: Any lab studies that have been ordered have been reviewed, and results considered in the medical decision making process. - Radiology CXR Xray Interpretation: No Acute Changes - NO ACTIVE CARDIOPULMONARY DISEASE. ED physician reviwed radiology report. Radiology Interpretation Completed By: Radiologist - CT 15:41 CT Interpretation: Positive (See Comments) - Cervical Spine CT: DEGENERATIVE CHANGES. NO ACUTE OSSEOUS INJURY TO THE CERVICAL SPINE. ED physician reviewed radiology report. CT Interpretation Completed By: Radiologist 15:40 CT Interpretation: Positive (See Comments) - Brain CT: 1. HIGH ATTENUATION MATERIAL WITHIN THE SULCI OF THE RIGHT FRONTAL LOBE AND LEFT PARIETAL LOBE. THE DIFFERENTIAL INCLUDES SUBARACHNOID HEMORRHAGE. THIS IS NOT A TYPICAL ANEURYSMAL PATTERN OF HEMORRHAGE. THIS MAY RESENT COUP/CONTRECOUP HEMORRHAGE IN THE SETTING OF TRAUMA. 2. ALTERNATIVELY, PROTEINACEOUS MATERIAL, INCLUDING THE SETTING OF MENINGITIS, MAY APPEAR DENSE ON CT. 3. MODERATE SINUS MUCOSAL INFLAMMATORY DISEASE, WITH AIR-FLUID LEVELS IN THE MAXILLARY SINUSES BILATERALLY. IN THE CORRECT CLINICAL SETTING, THIS MAY REPRESENT ACUTE SINUSITIS. ED physician reviewed radiology report. CT Interpretation Completed By: Radiologist Course/Dx Course Of Treatment: Patient with recent evaluation for headache and workup for subarachnoid hemorrhage. Negative CT, CTA at that time. Today she is feeling weak and fell. It is unknown if she had head injury but she thinks not. Subarachnoid hemorrhage is confirmed on the CT scan and according to the radiologist appears as coup/countercoup type injury, likely from trauma. She has some mild confusion and generalized weakness without focality of neurologic deficit. It is unknown if she had syncope or loss of consciousness during this time. Neurosurgery was contacted and will see the patient in consult. She is on no antiplatelet or blood thinner agents. Her pain, nausea was treated. She' ll be admitted to the ICU for neuro checks and evaluation by neurosurgery. - Diagnoses Differential Diagnosis/HQI/PQRI: Positive: Other - Toxicologic, metabolic, intracranial injury, inadvertent overdose, UTI Provider Diagnoses: Subarachnoid hemorrhage, Generalized weakness, Fall - Physician Notifications Discussed Care of Patient With: Juliana Duval from neurosurgery was contacted and will see the patient in ICU Time Discussed With Above Provider: 17:39 Instructed by Provider To: Admit As Inpatient - ICU - Critical Care Time Critical Care Time: 30-74 min - CCT is exclusive of separate billable procedures Discharge - Sign-Out/Discharge Documenting (check all that apply): Discharge/Admit/Transfer - Admit - Discharge Plan Condition: Guarded Disposition: ADMITTED TO [facility] Referrals: Bo Scott DO [Primary Care Provider] - - Billing Disposition and Condition Condition: GUARDED Disposition: Admitted to [facility] The documentation as recorded by the Larry bear Jade accurately reflects the service I personally performed and the decisions made by , Emeterio Caraballo MD.
[2017-08-14] MEDS ORDERED: NS 0.9% 1000 ML* 1,000 ML IV SCH (19:15)
[2017-08-14 19:34] LABS: Urine Appearance Cloudy; Urine Blood Negative (Negative); Urine Color Yellow; Urine Ketones Negative (Negative); Urine Protein 2+(100 mg/dL) (Negative); Urine Red Blood Cell Trace(0-2/hpf) (Absent); Urine Specific Gravity 1.011 (1.010-1.030); Urine Urobilinogen Negative (Negative); Urine White Blood Cell 3+(>20/hpf) (Absent)
[2017-08-14] MEDS ORDERED: LORazepam INJ* 2 MG/ML 1 ML VIAL IV PRN (20:41)
[2017-08-14] MEDS ORDERED: LORazepam INJ* 2 MG/ML 1 ML VIAL ONE (20:41)
--- NOTE | 2017-08-14 20:43 | PN ---
Progress Note - Progress Note Date of Service: 08/14/17 Note: Patient agitated & needing sedation for MRI which while sedation is not ideal given the need to monitor her neuro-status, the MRI is felt to be important enough to warrant lose dose attempts to obtain.
--- NOTE | 2017-08-14 22:07 | RAD ---
HISTORY: Neurological Deficits, Subarachnoid Hemorrhage COMPARISONS: Head CT dated August 14, 2017 TECHNIQUE: The following sequences were obtained of the head: Sagittal T1-weighted images, axial T2-weighted images, axial FLAIR images, axial susceptibility weighted images, axial T1-weighted images. Additionally, axial diffusion-weighted images were obtained with calculated apparent diffusion coefficients. FINDINGS: HEMORRHAGE/INFARCT: There is loss of conversion with susceptibility artifact along the right frontal and left parietal sulci consistent with subarachnoid hemorrhage noted on CT. MASSES/SHIFT: There is no mass or shift. EXTRA-AXIAL SPACES/MENINGES: As noted above, there is subarachnoid hemorrhage along the right frontal and left parietal lobes. SULCI AND VENTRICLES: The sulci and ventricles are normal in size and position for the patient's stated age. CEREBRUM: There are no focal parenchymal abnormalities. BRAINSTEM: There are no focal parenchymal abnormalities. CEREBELLUM: There are no focal parenchymal abnormalities. The cerebellar tonsils are normal in size and position. SELLA: The sella is normal. PINEAL: The pineal region is clear. CP ANGLE/TEMPORAL BONES: The labyrinthine structures are grossly normal. VESSELS: Normal flow-voids are noted within the visualized vertebral vasculature. DIFFUSION ABNORMALITIES: There are no diffusion abnormalities. PARANASAL SINUSES/MASTOIDS: Again noted are fluid levels within the maxillary sinuses bilaterally. ORBITS: The orbits are unremarkable. BONES AND SOFT TISSUE: No bone or soft tissue abnormalities are noted. OTHER: None IMPRESSION: 1. AGAIN NOTED IS RIGHT FRONTAL AND LEFT PARIETAL SUBARACHNOID HEMORRHAGE. 2. NO RESTRICTED DIFFUSION TO SUGGEST ACUTE INFARCT.
--- NOTE | 2017-08-14 22:09 | RAD ---
HISTORY: Neck Pain, Fall COMPARISONS: CT dated August 14, 2014 TECHNIQUE: The following sequences were obtained of the cervical spine: Sagittal T1- and T2-weighted images, sagittal STIR images, axial T2 and gradient echo images. FINDINGS: BRAIN AND SPINAL CORD: The visualized spinal cord is normal in caliber, position, and signal intensity. The visualized portion of the brain is unremarkable. The cerebellar tonsils are normal in position. ALIGNMENT: The alignment is normal. VERTEBRAL BODIES: There is mild anterolateral marginal osteophyte formation. JOINTS: There is mild uncovertebral and facet osteoarthritis, more pronounced at C5-C6. MUSCULATURE: Unremarkable INTERVERTEBRAL DISCS: There is diffuse loss of intervertebral disc height and T2 signal throughout the spine. AXIAL IMAGES: C2-C3: There is no disc herniation, spinal stenosis, or neuroforaminal narrowing. C3-C4: There is bilateral vertebral hypertrophy. There is no significant neuroforaminal narrowing. There is mild narrowing of the central canal. C4-C5: There is no disc herniation, spinal stenosis, or neuroforaminal narrowing. C5-C6: There is bilateral uncovertebral and facet hypertrophy. There is severe bilateral neuroforaminal narrowing. There is mild narrowing of the central C6-C7: There is no disc herniation, spinal stenosis, or neuroforaminal narrowing. C7-T1: There is no disc herniation, spinal stenosis, or neuroforaminal narrowing. SOFT TISSUES: The visualized soft tissues of the neck are unremarkable. OTHER: None. IMPRESSION: 1. DEGENERATIVE DISC DISEASE AND OSTEOARTHRITIS MOST PRONOUNCED AT C5-C6. 2. THERE IS SEVERE BILATERAL NEURAL FORAMINAL NARROWING C5-C6. 3. THERE IS MILD NARROWING OF THE CENTRAL CANAL AT C3-C4 AND C4-C5.
[2017-08-14] MEDS: Mometasone/Formoter 200/5 MDI INH SCH (22:46)
[2017-08-14] MEDS: DOXYcycline CAP(*) 100 MG PO SCH (22:58)
[2017-08-14] MEDS: levETIRAcetam TAB* 500 MG PO SCH (22:58)
--- NOTE | 2017-08-15 01:04 | HP ---
CC: Dr. Scott; Aylin Pompa MD * ADMISSION HISTORY AND PHYSICAL: DATE OF ADMISSION: 08/14/17 PRIMARY CARE PROVIDER: Dr. Scott. MY ATTENDING WHILE IN THE HOSPITAL: Greg Arambula MD * (DICTATED BY GUI HARRELL) CONSULTING NEUROSURGEON: Aylin Pompa MD CHIEF COMPLAINT: Fall and headache. HISTORY OF PRESENT ILLNESS: Ms. Cristina is a 56-year-old female with past medical history significant for arthritis, degenerative disk disease, shoulder arthritis, bone spurs, COPD, chronic neck and back pain who presents with headaches for approximately 2 weeks that have gotten worse over the past week. The patient was previously seen and evaluated in the emergency department on 02/15 for what was reported to be the worst headache of her life by Dr. Ivan Murrell of Neurology. She was seen and had a CTA of her head, which showed no acute intracranial abnormality. The patient was diagnosed with chronic tension- like syndromes with occipital neuralgia. Her headache was controlled with Reglan and Decadron. She was instructed to take ibuprofen for her headaches, which she had been taking twice a day, approximately 200 mg, she believes. The patient states that she had been sleepy for the 3 days before she came in and her neighbor had been checking on her and she feels she just she slept for 3 days, but she is a very historian and often trails off and perseverates on what has been going on to her and has very inconsistent stories. The patient complains that her "brain is not connecting to her body" stating that when she tries to use particularly her right hand, she is having difficulty with activities of daily living such as dialing a phone. She will find that when she tries to press the 8 button, she ends up pressing different buttons and it is frustrating for her. She denies taking too many medications. Denies drug abuse. She still smokes 1 pack per day of cigarettes. She states that her headache started approximately 2 weeks ago when she tried a new brand of cigarettes that she never tried before, but is not continuing to use those. The patient describes her headache as band like in the back of her head and going down to back of her neck with severe tenderness to palpation over the base of her skull and posterior neck. The patient states that she fell a week ago and hit her head very hard and states that she just remembered this now and did not tell it to the emergency department physicians or neurologist before when she came in. She denies any other falls. The patient had a CT of her head , which showed a subarachnoid hemorrhage and consistent with a coup-contrecoup injury and a CT of her cervical spine, which showed no acute abnormality. The patient had no radicular symptoms from her neck. The patient is very bothered by the cervical collar that was placed on her by EMS due to it pressing on the back of her neck, which is a very tender spot due to her headaches. Due to subarachnoid hemorrhage, altered mental status, and possible neurological deficits, we were asked to evaluate for admission. PAST MEDICAL HISTORY: 1. Arthritis. 2. Degenerative disk disease. 3. Tension headache. 4. Bone spurs. 5. Shoulder arthritis. PAST SURGICAL HISTORY: 1. Cholecystectomy. 2. Hysterectomy. MEDICATIONS: The patient's neighbor brought in her medications from home, which she states she has been taking and those consist of: 1. Doxycycline 100 mg p.o. b.i.d. 2. Baclofen 20 mg p.o. t.i.d. as needed. 3. Zofran 4 mg b.i.d. as needed. 4. The patient also states she has been taking ibuprofen 200 mg p.o. twice daily. The patient's medication reconciliation also includes: 1. Guaifenesin 600 mg p.o. b.i.d. as needed severe cold and flu, liquid 30 mL p.o. q.6 hours as needed. 2. Excedrin Migraine 2 caps p.o. q.6 hours as needed for headache. 3. Meloxicam 7.5 mg p.o. daily. 4. Fluticasone 2 sprays both nares daily. 5. Symbicort 2 puffs inhalation b.i.d. 6. Fioricet 1 tab p.o. q.4 hours as needed. It is unclear whether the patient is taking these medications. ALLERGIES: The patient has an allergy to PENICILLIN, ADHESIVE TAPE, VICODIN, PREDNISONE, and CHANTIX. FAMILY HISTORY: The patient's father of COPD. The patient's mother of infection related to a G-tube. The patient has several brothers and sisters who have had AAA surgery. The patient has a brother who this year of stomach cancer. SOCIAL HISTORY: The patient is a 1-pack per day smoker for approximately 40 years. The patient denies alcohol use. The patient denies illicit drug use. The patient is on disability for her back and neck. The patient is and has 3 children. REVIEW OF SYSTEMS: A 14-point review of systems was reviewed with the patient and pertinent positives and negatives are as above in the HPI. The patient is a poor historian and is unclear whether she understood exactly what was being asked of her. PHYSICAL EXAMINATION GENERAL: The patient is a 56-year-old female, who appears to age, sitting in the bed with consistent phrenetic movement. VITAL SIGNS: Temperature 98.6, pulse rate 49, respiratory rate 18, oxygen saturation 93% on room air, blood pressure 154/74. HEENT: Head is normocephalic, atraumatic. Sclerae anicteric. No conjunctival injection. Nasal mucosa moist. Oral mucosa moist. No pharyngeal erythema, discharge, or exudate. Tenderness to palpation over the frontal and maxillary sinuses. NECK: Supple. No lymphadenopathy. No carotid bruit auscultated. No JVD. Tenderness to light palpation over the posterior neck including the spinous processes. RESPIRATORY: Clear to auscultation bilaterally. No wheezes, rales, or rhonchi. Good air exchange bilaterally. CARDIAC: Regular rate and rhythm. No clicks, murmurs, gallops, or rubs. Pulses 2+ in the bilateral dorsalis pedis, posterior tibialis, and radial areas. No calf tenderness noted. Lower extremity edema noted. ABDOMEN: Soft, nontender, nondistended. Bowel sounds present. Normoactive in all 4 quadrants. No hepatosplenomegaly. No abdominal bruits auscultated. GENITOURINARY: No suprapubic or CVA tenderness. NEURO: Cranial nerves II through XII intact. Alert only to self and place. The patient does not know what day, month, or year it is. The patient does know who the President is. The patient is a poor historian and tends to perseverate. The patient has no focal deficits. The patient has preserved sensation to light touch in the upper and lower extremities distally and proximally. The patient has 4/5 strength in the bilateral upper and lower extremities distally and proximally. The patient is poorly cooperative with neurological testing. [id number] exam performed slowly but without difficulty. Repeated finger taps are slow but symmetrical bilaterally. SKIN: Clean, dry, intact. No rash. PSYCHIATRIC: Pleasant, but anxious. LABORATORY DATA: White blood count 9.6, hemoglobin 15.8, hematocrit 46, platelet count 233. INR 0.99. APTT 29.3. Sodium 139, potassium 3.8, chloride 104, carbon dioxide 23, anion gap 12, BUN 11, creatinine 0.83, glucose 101, lactic acid 0.7, calcium 9.5. Total bilirubin 1.8, AST 46, ALT 100, alkaline phosphatase 75. Troponin I 0.00. Total protein 6.8. Albumin 4.0, globulin 2.8. Serum alcohol less than 10. Studies done while in the hospital, chest x-ray read as no acute cardiopulmonary disease. Electrocardiogram read as normal sinus rhythm. No ST segment abnormalities. No hypertrophy or enlargement. Rate of 52, QTc of 451. No other abnormalities. Brain CT from 08/14/17 read as high attenuation material within the sulci of the frontal lobe and left parietal lobe. The differential includes subarachnoid hemorrhage. This is not a typical aneurysmal pattern of hemorrhage. This may present coup-contrecoup hemorrhage in the setting of trauma, alternatively proteinaceous material may enhance similarly in the setting of meninigitis. Sinus mucosal inflammatory disease with air-fluid levels in the maxillary sinuses bilaterally, in the current clinical setting, this may represent acute sinusitis. Cervical spine CT from 08/14/17 read as degenerative changes, no acute osseous injury to the cervical spine. ASSESSMENT AND PLAN: 1. Impression: Ms. Cristina is a 56-year-old female with past medical history significant for degenerative disk disease, arthritis, and tension headaches who presents with ongoing headaches for 2 weeks for which she was previously evaluated with negative CT and CTA on 08/10/17 with a new fall today, which she states consists of her lowering herself to the ground, but was found to have new subarachnoid hemorrhage with a traumatic coup-contrecoup pattern. The patient will be admitted to the ICU for close neurological monitoring and will be seen in consultation by Neurosurgery. 2. Subarachnoid hemorrhage. Appreciate Neurosurgery consultation. The patient will be started on Keppra for seizure prophylaxis. The patient will have fluids at 75 mL an hour. The patient will have neurological checks every 1 hour to assess for deterioration. The patient has a normal neurological exam except for altered mental status and subjective description of the patient having difficulty using her right hand particularly for tasks. This could correspond to a stroke in the region around her subarachnoid hemorrhage. We will get a stat MRI to assess for this. Due to the patient's altered mental status, pain control will be with Tylenol only. The patient should avoid NSAIDs due to concern for bleeding, as well as opiates and muscle relaxants as they are sedating and alter mental status. The patient will have a repeat brain CT in the morning. 3. Altered mental status. It is unclear what is causing the patient's altered mental status. The patient denies taking too much of her psychoactive medication including baclofen. The patient, by provider reports, was not like this on previous evaluation. The patient has elevated LFTs, which were not present before. The patient denies drinking alcohol. The patient's serum alcohol is negative. We will check an ammonia as this may be contributing to the altered mental status. Urinary drug screen is also pending. The patient had a negative CRP. No fevers. The patient does not have nuchal rigidity. This is unlikely a manifestation of meningitis, given the patient's CT scan of the her head, threshold for starting empiric antibiotic treatment should be low if the patient develops high fevers. The patient has an elevated anion gap with no other apparent acid-base abnormality. We will monitor closely for deterioration of mental status. 4. Degenerative disk disease with chronic pain in the neck. We will hold baclofen and other stated pain medications at this time due to altered mental status. 5. Chronic obstructive pulmonary disease. The patient has COPD, not listed in her past medical history and she denies any nausea, but she did have a long- term history of smoking and has been prescribed Symbicort in the past. We will continue this while in the hospital. 6. Tension headaches. The patient's headache likely also has a tension component to it. The patient should follow up outpatient after the acute phase of her subarachnoid hemorrhage for control of this as discussed with Dr. Murrell previously. 7. DVT prophylaxis: The patient will have SCDs in the setting of subarachnoid hemorrhage. 8. Fluids, electrolytes, and nutrition: The patient will have fluids 75 mL an hour and a heart healthy diet without caffeine. 9. Disposition: The patient will be admitted to the ICU for close neurologic monitoring. 10. Code status: The patient would like to be a full code. The patient's surrogate decision maker is her brother, Dru Rivera. TIME SPENT: Approximately 90 minutes was spent on this admission, 45 of which was spent [id number] with the patient obtaining history and physical and discussing treatment plan. This plan has been discussed with my attending, Dr. Greg Arambula, and he is in agreement. GUI HARRELL [id number]/[facility] #: [id number] MTDChano
[2017-08-15] MEDS: Acetaminophen TAB* 325 MG PO PRN ×4 (02:37→23:57)
--- NOTE | 2017-08-15 05:00 | CONS ---
CONSULTATION REPORT: DATE OF CONSULT: 08/15/17 HISTORY OF PRESENT ILLNESS: The patient is a very pleasant 56-year-old female, who had recently sustained a fall a few days ago, and she reports at that time she tripped and fell. She had a workup for generalized weakness including a CT of the head, and CT of the head was negative. Today, she was found on the floor of her driveway. The patient does not recall if she tripped or had the syncopal episode. There were no witnesses. The patient denies any seizure, denies any neck or back pain. She has chronic neck pain and the patient is disabled because of chronic back pain, but she reports that everything is in her baseline. The patient denies any weakness, numbness, or tingling of extremities. She reports that she had 1 episode of urinary and GI incontinence with diarrhea this morning before the episode of her being found on the driveway. The patient is single, lives alone, and she has been on disability because of chronic complaints of back pain. PAST MEDICAL HISTORY: Angina, COPD. The patient is a poor historian. PAST SURGICAL HISTORY: Cholecystectomy, lymph node removed, hysterectomy. HOME MEDICATIONS: 1. Budesonide. 2. Acetaminophen. 3. Caffeine. 4. Doxycycline. 5. Fluticasone. 6. Meloxicam. 7. Ondansetron. ALLERGIES: ACETAMINOPHEN, ADHESIVE TAPE, HYDROCODONE, PENICILLIN, PREDNISONE, CHANTIX. FAMILY HISTORY: Cardiac history, respiratory disease, cancer. SOCIAL HISTORY: Tobacco, positive everyday smoker. Alcohol, occasional. Recreational drug use, negative. PHYSICAL EXAM: The patient is not in acute distress. She is in the ICU bed, returned from her MRI of the brain and cervical spine. She is in a cervical collar. The patient received IV Ativan for the MRI. I had a discussion with the ICU nurse. The patient is very close to her baseline as reported by her brother on the phone. The patient is awake, alert, oriented x1. Her pupils are equal and reactive. Cranial nerves II through XII are grossly intact. Motor 4-5/5 in the lower extremities. No pronator drift. Sensory is grossly intact to light touch. Deep tendon reflex +1 bilaterally. No clonus. No Babinski. Ramachandran's negative. Straight leg test is negative in sitting position. The patient has no pain to palpation of cervical, thoracic, and lumbar spine. She has free range of motion of cervical spine. Rectal exam was normal. The patient has voluntary contraction of her sphincter and has good perianal sensation. DIAGNOSTIC STUDIES: The patient had a CT scan of the brain revealing right frontal, left parietal subarachnoid hemorrhage. The patient had also an MRI of the brain with similar findings without evidence of acute stroke. The patient had a CT scan of the cervical spine revealing degenerative disk disease without evidence of acute fracture. The patient had an MRI of the cervical spine that reveals degenerative disk disease especially at C5-6 with bilateral neural foraminal stenosis without evidence of acute changes in the STIR sequences. The patient had thoracic and lumbar spine x-rays that did not reveal any evidence of significant fracture. The official report is still pending. ASSESSMENT: The patient is a very pleasant 56-year-old female with history of generalized weakness and headache that was reported to be found down after a possible fall or syncopal episode with significant findings consistent with likely traumatic subarachnoid hemorrhage. PLAN: The patient, at this point, is doing quite well. Based on the characteristics of the imaging and as report by Radiology, likelihood of aneurysmal subarachnoid hemorrhage is extremely low. The patient had a negative CTA and CT prior to this admission. At this time, we recommend monitoring vital signs and neuro checks. Seizure prophylaxis for 7 days. Monitor labs. Cervical collar was removed. We will repeat a CAT scan of the brain in the morning. Discussed the plan with the patient. Thank you very much for allowing us to participate in the care of this patient. Please do not hesitate to contact our office in case you have any further questions or concerns regarding the care of this patient. Markie Pompa MD [id number]/[facility] #: [id number] YOKASTA
[2017-08-15 06:12] LABS: ABS Basophils 0 10^3/ul (0-0.2); ABS Eosinophils 0.1 10^3/ul (0-0.6); ABS Lymphocytes 3.1 10^3/ul (1.0-4.8); ABS Monocytes 0.6 10^3/ul (0-0.8); ABS Neutrophils 4.4 10^3/ul (1.5-7.7); ABS Nucleated RBC 0 10^3/ul; Eosinophil % 1.3 % (0-6); Hematocrit 40 % (35-47); Hemoglobin 14.1 g/dl (12.0-16.0); Lymphocyte % 37.2 % (25-47); Mean Corpuscular HGB Conc 35 g/dl (31-36); Mean Corpuscular Hemoglobin 31 pg (27-31); Mean Corpuscular Volume 88 fL (80-97); Mean Platelet Volume 7.9 um3 (7.4-10.4); Nucleated Red Blood Cells % 0.1; Platelet Count 226 10^3/ul (150-450); Red Blood Count 4.55 10^6/ul (4.00-5.40); Red Cell Distribution Width 14 % (10.5-15); White Blood Count 8.2 10^3/ul (3.5-10.8)
[2017-08-15 06:26] LABS: EGFR Non-African American 73.9 (>60)
[2017-08-15 06:47] LABS: INR 1.07 (0.77-1.02)
--- NOTE | 2017-08-15 07:32 | RAD ---
HISTORY: trauma COMPARISONS: None VIEWS: 2 , Frontal and lateral views of the lumbar spine FINDINGS: ALIGNMENT: There is a mild dextroscoliotic curvature of the spine. VERTEBRAL BODIES: There is diffuse osteopenia. The vertebral bodies are preserved in height. There is mild multilevel anterolateral marginal osteophyte formation, with sclerotic reactive changes at L5-S1 JOINTS: There is facet osteoarthritis most pronounced at L3-L4, L4-L5, and L5-S1 INTERVERTEBRAL DISCS: There is diffuse loss of intervertebral disc height. SOFT TISSUE: Unremarkable. OTHER: There is osteoarthritis of the hips and SI joints. IMPRESSION: 1. OSTEOPENIA. 2. DEGENERATIVE DISC DISEASE AND OSTEOARTHRITIS
--- NOTE | 2017-08-15 07:32 | RAD ---
HISTORY: trauma COMPARISONS: None VIEWS: 2, Frontal and lateral views of the thoracic spine. FINDINGS: ALIGNMENT: The alignment is normal. VERTEBRAL BODIES: The vertebral body heights are normal. The interpedicular distances are normal. There is mild anterolateral marginal osteophyte formation. JOINTS: Unremarkable. INTERVERTEBRAL DISCS: There is mild diffuse loss of intervertebral disc height. SOFT TISSUE: Unremarkable OTHER: The visualized lungs are clear. IMPRESSION: MILD DEGENERATIVE CHANGES
--- NOTE | 2017-08-15 08:38 | RAD ---
HISTORY: Monitor SAH COMPARISONS: August 14, 2017 TECHNIQUE: Multiple contiguous axial CT scans were obtained of the head without intravenous contrast. FINDINGS: HEMORRHAGE/INFARCT: There is no parenchymal hemorrhage or acute infarct. MASSES/SHIFT: There is no mass or shift. EXTRA-AXIAL SPACES: Again noted is high attenuation material consistent with subarachnoid hemorrhage along the right frontal and left parietal sulci. This has slightly decreased compared to the previous examination SULCI AND VENTRICLES: The sulci and ventricles are normal in size and position for the patient's stated age. CEREBRUM: There are no focal parenchymal abnormalities. BRAINSTEM: There are no focal parenchymal abnormalities. CEREBELLUM: There are no focal parenchymal abnormalities. VESSELS: The vessels are grossly normal. PARANASAL SINUSES: The paranasal sinuses are clear. ORBITS: The orbits are unremarkable. BONES AND SOFT TISSUE: No bone or soft tissue abnormalities are noted. OTHER: None IMPRESSION: PERSISTENT, BUT SLIGHTLY DECREASED, RIGHT FRONTAL AND LEFT PARIETAL SUBARACHNOID HEMORRHAGE
[2017-08-15] MEDS: Mometasone/Formoter 200/5 MDI INH SCH ×2 (09:24→19:43)
[2017-08-15] MEDS: Fluticasone NASAL SPRAY 50MCG* 16 gm SPRAY BTL BOTH NARES SCH (09:24)
[2017-08-15] MEDS: levETIRAcetam TAB* 500 MG PO SCH ×2 (09:24→21:20)
[2017-08-15] MEDS: DOXYcycline CAP(*) 100 MG PO SCH ×2 (09:24→21:20)
[2017-08-15] MEDS ORDERED: Benzocaine/Menthol LOZ* 1 LOZENGE PO PRN (10:48)
[2017-08-15] MEDS: Acetaminophen TAB* 325 MG PO SCH ×2 (11:27→21:20)
--- NOTE | 2017-08-15 13:07 | PN ---
Progress Note - Progress Note Date of Service: 08/15/17 SOAP: Subjective: []No events ON. No Balderas. Tolerates Po, Voids. On Keppra. Patient reports that RUE dextremity is decreased since the incidence yesterday. Objective: []VSS Afebrile AAOx3 CANDIE. CN II-XII grossly intact Motor 4-5 /5 , No pronator drift Sensory grossly intact to light touch Assessment: []56 yo f Traumatic SAH, Chronic cervical spondylosis and myelopathy Plan: []Monitor VS, Neurochecks MJ collar for comfort. TL XRs negative Repeat CT unchanged SZ prophylaxis for 7 days May require surgical intervention for cervical myelopathy in the future. Appreciate IM care. Markie Pompa MD
--- NOTE | 2017-08-15 18:19 | PN ---
Subjective Date of Service: 08/15/17 Interval History: Pt seen and examined in ICU. Meds and labs reviewed. Clarified that she had two fallsthe first one at least 3 days before the 2nd one. She mentioned that the first fall was clearly because she tripped, however, she mentioned she was already feeling unwell by the second fall. ROS: Weakness of RUE, post-nasal gtt and nasal d/c, GUZMAN at the back of eye and sometimes neck pain when she stands. Denied dizziness, F/C, N/V, CP, SOB, increased cough, sputum production, abd pain, diarrhea, constipation, dysuria, myalgias, arthralgias, throat pain, and new skin lesions. The rest of the 14 point ROS are unremarkable. PHYSICAL EXAM: GEN APPEARANCE: Awake, not in acute distress, oriented x3 HEENT: NC/AT, PERRLA, moist oral mucosa, (-) throat erythema NECK: Soft, supple, (-) cervical LAD, (-)JVD HEART: S1S2 WNL, RRR, No MRG CHEST: CTA, BL, GAE, No W/R/R ABD: Soft, ND/NT, NABS 4x Q EXT: No C/C/E SKIN: Warm to touch PSYCH: No active psychosis, hallucinations, depression, SI/HI Objective Active Medications: Acetaminophen (Tylenol Tab*) 975 mg PO BID [facility] Last Admin: 08/15/17 11:27 Dose: Not Given Acetaminophen (Tylenol Tab*) 650 mg PO Q8H PRN PRN Reason: FEVER/PAIN Last Admin: 08/15/17 13:16 Dose: 650 mg Docusate Sodium (Colace Cap*) 100 mg PO BID PRN PRN Reason: CONSTIPATION Doxycycline Hyclate (Vibramycin Cap(*)) 100 mg PO BID [facility] Last Admin: 08/15/17 09:24 Dose: 100 mg Fluticasone Propionate (Flonase Nasal [place] 50mcg*) 2 spray BOTH NARES DAILY [facility] Last Admin: 08/15/17 09:24 Dose: 2 spray Guaifenesin (Mucinex*) 600 mg PO BID PRN PRN Reason: CONGESTION Levetiracetam (Keppra Tab*) 500 mg PO BID [facility] Last Admin: 08/15/17 09:24 Dose: 500 mg Mometasone Furoate/Formoterol Fumar (Dulera 200/5 Mdi*) 2 puff INH BID [place] PRN Reason: Protocol Last Admin: 08/15/17 09:24 Dose: 2 puff Ondansetron HCl (Zofran 40 Mg Vial*) 4 mg IV Q6H PRN PRN Reason: NAUSEA Throat Lozenges (Chloraseptic Ramses*) 1 ramses PO Q6H PRN PRN Reason: SORE THROAT Vital Signs - 8 hr 08/15/17 08/15/17 08/15/17 11:00 12:00 13:00 Temperature Pulse Rate 66 66 67 Respiratory 20 17 14 Rate Blood Pressure 118/62 (mmHg) O2 Sat by Pulse 95 93 94 Oximetry 08/15/17 08/15/17 08/15/17 13:01 13:51 14:00 Temperature 99.5 F Pulse Rate 61 58 Respiratory 25 21 Rate Blood Pressure 114/70 (mmHg) O2 Sat by Pulse 93 97 Oximetry 08/15/17 08/15/17 08/15/17 15:00 16:00 16:46 Temperature Pulse Rate 60 64 57 Respiratory 23 21 24 Rate Blood Pressure 93/54 (mmHg) O2 Sat by Pulse 94 95 98 Oximetry 08/15/17 17:00 Temperature 99.3 F Pulse Rate 54 Respiratory 22 Rate Blood Pressure (mmHg) O2 Sat by Pulse 98 Oximetry Oxygen Devices in Use Now: None Result Diagrams: 08/15/17 05:22 08/15/17 05:22 Additional Lab and Data: Lab Results 08/14/17 08/14/17 08/14/17 Range/Units 16:10 16:10 16:10 WBC 9.6 (3.5-10.8) 10^3/ul RBC 5.18 (4.00-5.40) 10^6/ul Hgb 15.8 (12.0-16.0) g/dl Hct 46 (35-47) % MCV 88 (80-97) fL MCH 31 (27-31) pg MCHC 35 (31-36) g/dl RDW 14 (10.5-15) % Plt Count 233 (150-450) 10^3/ul MPV 7.6 (7.4-10.4) um3 Neut % (Auto) 64.8 (38-83) % Lymph % (Auto) 27.3 (25-47) % [place] % (Auto) 6.2 (0-7) % Eos % (Auto) 0.8 (0-6) % Baso % (Auto) 0.9 (0-2) % Absolute Neuts (auto) 6.2 (1.5-7.7) 10^3/ul Absolute Lymphs (auto) 2.6 (1.0-4.8) 10^3/ul Absolute Monos (auto) 0.6 (0-0.8) 10^3/ul Absolute Eos (auto) 0.1 (0-0.6) 10^3/ul Absolute Basos (auto) 0.1 (0-0.2) 10^3/ul Absolute Nucleated RBC 0 10^3/ul Nucleated RBC % 0.1 INR (Anticoag Therapy) 0.99 (0.77-1.02) APTT 29.3 (26.0-36.3) seconds Sodium 139 (135-145) mmol/L Potassium 3.8 (3.5-5.0) mmol/L Chloride 104 (101-111) mmol/L Carbon Dioxide 23 (22-32) mmol/L Anion Gap 12 H (2-11) mmol/L BUN 11 (6-24) mg/dL Creatinine 0.83 (0.51-0.95) mg/dL Est GFR ( Amer) 91.1 (>60) Est GFR (Non-Af Amer) 70.9 (>60) BUN/Creatinine Ratio 13.3 (8-20) Glucose 101 H (70-100) mg/dL Lactic Acid (0.5-2.0) mmol/L Calcium 9.5 (8.6-10.3) mg/dL Total Bilirubin 0.80 (0.2-1.0) mg/dL AST 46 H (13-39) U/L ALT 100 H (7-52) U/L Alkaline Phosphatase 75 (34-104) U/L Troponin I 0.00 (<0.04) ng/mL Total Protein 6.8 (6.4-8.9) g/dL Albumin 4.0 (3.2-5.2) g/dL Globulin 2.8 (2-4) g/dL Albumin/Globulin Ratio 1.4 (1-3) Serum Alcohol < 10 (<10) mg/dL 08/14/17 Range/Units 16:10 WBC (3.5-10.8) 10^3/ul RBC (4.00-5.40) 10^6/ul Hgb (12.0-16.0) g/dl Hct (35-47) % MCV (80-97) fL MCH (27-31) pg MCHC (31-36) g/dl RDW (10.5-15) % Plt Count (150-450) 10^3/ul MPV (7.4-10.4) um3 Neut % (Auto) (38-83) % Lymph % (Auto) (25-47) % [place] % (Auto) (0-7) % Eos % (Auto) (0-6) % Baso % (Auto) (0-2) % Absolute Neuts (auto) (1.5-7.7) 10^3/ul Absolute Lymphs (auto) (1.0-4.8) 10^3/ul Absolute Monos (auto) (0-0.8) 10^3/ul Absolute Eos (auto) (0-0.6) 10^3/ul Absolute Basos (auto) (0-0.2) 10^3/ul Absolute Nucleated RBC 10^3/ul Nucleated RBC % INR (Anticoag Therapy) (0.77-1.02) APTT (26.0-36.3) seconds Sodium (135-145) mmol/L Potassium (3.5-5.0) mmol/L Chloride (101-111) mmol/L Carbon Dioxide (22-32) mmol/L Anion Gap (2-11) mmol/L BUN (6-24) mg/dL Creatinine (0.51-0.95) mg/dL Est GFR ( Amer) (>60) Est GFR (Non-Af Amer) (>60) BUN/Creatinine Ratio (8-20) Glucose (70-100) mg/dL Lactic Acid 0.7 (0.5-2.0) mmol/L Calcium (8.6-10.3) mg/dL Total Bilirubin (0.2-1.0) mg/dL AST (13-39) U/L ALT (7-52) U/L Alkaline Phosphatase (34-104) U/L Troponin I (<0.04) ng/mL Total Protein (6.4-8.9) g/dL Albumin (3.2-5.2) g/dL Globulin (2-4) g/dL Albumin/Globulin Ratio (1-3) Serum Alcohol (<10) mg/dL Microbiology and Other Data: Microbiology 08/14/17 20:07 Nasal Screen MRSA (PCR)(DAVID) - Final Nasal Mrsa Not Detected Assess/Plan/Problems-Billing Assessment: - Patient Problems (1) SAH (subarachnoid hemorrhage) Current Visit: Yes Status: Acute Code(s): I60.9 - NONTRAUMATIC SUBARACHNOID HEMORRHAGE, UNSPECIFIED SNOMED Code(s): 337426948 Comment: #Traumatic SAH: -Will decrease Neurochecks to q4H -Will continue to monitor in tele and in the ICU and transfer to floors in AM if unremarkable o/n stay -Continue Keppra for total of 7 days for seizure prophylaxis as recommended by NeuroSx -GUZMAN and neck pain could be due to Subarachnoid blood acting as an irritant (2) Mental status change Current Visit: Yes Status: Acute Code(s): R41.82 - ALTERED MENTAL STATUS, UNSPECIFIED SNOMED Code(s): 063345546 Comment: #Altered MS: -Improved -Likely due to above (3) Sinusitis Current Visit: Yes Status: Acute Code(s): J32.9 - CHRONIC SINUSITIS, UNSPECIFIED SNOMED Code(s): 78347219 Comment: #Sinusitis: -Continue Doxycycline -Given she mentions that her normal SBPs is in the 90s and currently her SBPs have been in 120s, especially given her recent SAH, I will avoid any decongestants such as Afrin or Sudafed so as not to further increase her BP from baseline -Cepacol PRN (4) Degenerative disc disease Current Visit: Yes Status: Acute Code(s): ADQ1056 - SNOMED Code(s): 55856990 Comment: #Degenerative disc disease: -Continue PRN Tylenol (5) COPD (chronic obstructive pulmonary disease) Current Visit: Yes Status: Acute Code(s): J44.9 - CHRONIC OBSTRUCTIVE PULMONARY DISEASE, UNSPECIFIED SNOMED Code(s): 24656753 Comment: -Continue Mometasone (6) DVT prophylaxis Current Visit: Yes Status: Acute Code(s): DZA6226 - SNOMED Code(s): 320890169 Comment: -No pharmacologic prophylaxis given SAH -Continue SCDs Status and Disposition: -For PT eval -For possible transfer to floors in AM if no O/N issues
[2017-08-16 04:19] LABS: Hematocrit 40 % (35-47); Hemoglobin 13.9 g/dl (12.0-16.0); Mean Corpuscular HGB Conc 35 g/dl (31-36); Mean Corpuscular Hemoglobin 31 pg (27-31); Mean Corpuscular Volume 88 fL (80-97); Mean Platelet Volume 7.7 um3 (7.4-10.4); Platelet Count 242 10^3/ul (150-450); Red Blood Count 4.54 10^6/ul (4.00-5.40); Red Cell Distribution Width 15 % (10.5-15); White Blood Count 8.8 10^3/ul (3.5-10.8)
[2017-08-16 04:30] LABS: EGFR Non-African American 72.9 (>60)
[2017-08-16] MEDS: DOXYcycline CAP(*) 100 MG PO SCH (08:28)
[2017-08-16] MEDS: Acetaminophen TAB* 325 MG PO SCH (08:29)
[2017-08-16] MEDS: levETIRAcetam TAB* 500 MG PO SCH (08:29)
[2017-08-16] MEDS: Mometasone/Formoter 200/5 MDI INH SCH (08:51)
[2017-08-16] MEDS: Fluticasone NASAL SPRAY 50MCG* 16 gm SPRAY BTL BOTH NARES SCH (12:16)
[2017-08-16 12:33] VITALS: BP 107/64
--- NOTE | 2017-08-16 16:10 | PN ---
Progress Note - Progress Note Date of Service: 08/16/17 SOAP: Subjective: []patient seen earlier. No events ON. No Balderas. Tolerates Po, Voids. On Keppra. No complains with RUE dextrerity. Objective: []VSS Afebrile AAOx3 CANDIE. CN II-XII grossly intact Motor 4-5 /5 , No pronator drift Sensory grossly intact to light touch Assessment: []56 yo f Traumatic SAH, Chronic cervical spondylosis and myelopathy Plan: []Monitor VS, Neurochecks MJ collar for comfort. SZ prophylaxis for 7 days May require surgical intervention for cervical myelopathy in the future. Follow up in office in one month with new CT of head. Appreciate IM care. Markie Pompa MD
--- NOTE | 2017-08-17 09:45 | DS ---
CC: Dr. Emeterio Caraballo; Dr. Bo Scott * DISCHARGE SUMMARY: DATE OF ADMISSION: DATE OF DISCHARGE: 08/16/17 DISCHARGE DIAGNOSES: As follows: 1. Traumatic subarachnoid hemorrhage, improved. 2. Mental status change, improved, back to baseline. 3. Acute sinusitis, the patient on doxycycline. 4. Degenerative disk disease. 5. History of chronic obstructive pulmonary disease. DISCHARGE MEDICATIONS: Are as follows: 1. Tylenol 650 mg p.o. q.8 p.r.n. 2. Benzocaine/menthol lozenge, 1 lozenge p.o. q.6 p.r.n. 3. Budesonide and formoterol 160/4.5 mcg 2 puffs inhalation b.i.d. 4. Fluticasone nasal 2 sprays to both nares daily. 5. Guaifenesin ER tab 600 mg p.o. b.i.d. 6. Doxycycline 100 mg p.o. b.i.d. for 8 days. 7. Floranex 1 tab p.o. daily. 8. Keppra 500 mg p.o. b.i.d. for 7 days. 9. Ondansetron 4 mg p.o. b.i.d. tablet p.r.n. HISTORY OF PRESENT ILLNESS/HOSPITAL COURSE: The patient is a 56-year-old lady with history of arthritis, degenerative disk disease, shoulder arthritis, and COPD, who mentioned that she had a mechanical fall on 08/10/17 and was reported to have been having the worst headache of her life and was seen by Dr. Murrell of Neurology. She then had a CTA of her head, which showed no acute intracranial abnormality and was diagnosed with chronic tension- like syndrome with neuralgia. It was not clear at that time if she mentioned to anyone about her recent fall. However, she mentioned that after 2 or 3 days, she began feeling unwell and was unsteady in her gait, and once again fell on the street. She was then brought to the [facility] ED where brain CT was done on 08/14, which revealed a subarachnoid hemorrhage with a nonaneurysmal pattern of hemorrhage, likely due to her recent trauma. She also had a cervical spine CT as well as a lumbar spine and thoracic spine CT, which showed degenerative changes with no acute osseous injury. She was seen in consultation by Dr. Pompa, who then recommended to observe the patient in the ICU and to give Keppra for about 7 days for seizure prophylaxis and to repeat a CAT scan non- contrast of her head. The repeat CAT scan showed improvement in her subarachnoid hemorrhage and I saw her for the first time on Wednesday on 08/15/17 and she was still having some headache and when she stands up had some neck pain , likely due to the gravitational pull of blood irritating her meninges. This has been subsequently resolved the following day when I saw her on the floor and is back to her mental status baseline. I have touched base with Dr. Pompa prior to discharge and he agreed that the patient can be safely discharged home with followup CT a few days before her followup to her office in a month and hence will defer. The patient was advised to follow up and/or touch base with her PCP within 3 days post discharge and do not participate in any activity that can lead to any significant whiplash or sudden acceleration and/or deceleration. She is to repeat her CT scan of her head a few days before her followup appointment with Dr. Pompa in 1 month. She had been given Dr. Pompa' office number to schedule her appointment in 1 month. She was advised to take her medications as prescribed. She was advised to hold her aspirin and meloxicam for at least 1 month and to seek advice from her PCP and/or Dr. Pompa of when she can safely resume these medications. She was also advised to avoid any medications that can cause increased bleeding such as aspirin, NSAIDs, anticoagulants, etc. , for a month unless otherwise advised by her practitioner when risks and benefits in a conversation with her has transpired. She understood all of these and is very appreciative of the care she has been given in our facility. PHYSICAL EXAMINATION: Reveals the most recent vital signs of records with blood pressure of 107/64, saturating at 99% at room air, 61 beats per minute heart rate, 16 per minute respiratory rate, temperature of 97.6 degrees Fahrenheit. General Appearance: The patient is awake, alert, and oriented x3, not in acute distress, speaks in full sentences with normal dinesh and able to carry normal conversations appropriately. HEENT: Normocephalic, atraumatic. PERRLA. Extraocular muscles intact. Negative for icterus. Moist oral mucosa. Negative throat erythema. Neck is soft and supple with no cervical lymphadenopathy, no JVD. Heart: S1 and S2 within normal limits. Regular rate and rhythm. No murmurs, rubs, or gallops. Chest: Clear to auscultation bilaterally. Good air entry. No wheezes, rales, or rhonchi. Abdomen is soft, nondistended, and nontender. Normoactive bowel sounds x4 quadrants. Extremities: No cyanosis, clubbing, or edema. Psychiatric: No active psychosis, depression, suicidal or homicidal ideation. Skin is warm to touch. Neurologic: CN II through XII intact. Moves all 4 extremities. No focal neurologic lesions identified. [id number]/CPS #: [id number] MTDD
== END 2017-08-16 15:48 | disposition home or self-care (01) | DRG 87 ==
LOC: ED 15:32 → ICU 18:37 → MEDTELE 08-16 04:29
PROVIDERS: ADMIT Student in an Organized Health Care Education/Training Program; ATTEND Student in an Organized Health Care Education/Training Program
DX: S06.6X0A Traumatic subarachnoid hemorrhage without loss of consciousness, initial encounter (principal); W18.30XA Fall on same level, unspecified, initial encounter; Y92.9 Unspecified place or not applicable; J44.9 Chronic obstructive pulmonary disease, unspecified; M50.323 Other cervical disc degeneration at C6-C7 level; M51.36 Other intervertebral disc degeneration, lumbar region; M51.34 Other intervertebral disc degeneration, thoracic region; M81.0 Age-related osteoporosis without current pathological fracture; M47.9 Spondylosis, unspecified; F17.210 Nicotine dependence, cigarettes, uncomplicated; J01.90 Acute sinusitis, unspecified; M19.019 Primary osteoarthritis, unspecified shoulder; M77.9 Enthesopathy, unspecified; Z79.1 Long term (current) use of non-steroidal anti-inflammatories (NSAID); Z79.899 Other long term (current) drug therapy; Z88.5 Allergy status to narcotic agent; Z88.0 Allergy status to penicillin; Z88.8 Allergy status to other drugs, medicaments and biological substances; Z91.048 Other nonmedicinal substance allergy status; Z80.0 Family history of malignant neoplasm of digestive organs; Z82.5 Family history of asthma and other chronic lower respiratory diseases; Z82.49 Family history of ischemic heart disease and other diseases of the circulatory system
CPT/HCPCS: 36415; 70450; 70551; 71045; 72070; 72100; 72125; 72141; 80048; 80053; 80307; 80320; 81003; 81015; 82140; 83605; 83735; 84100; 84484; 85025; 85027; 85610; 85730; 87086; 87641; 93005; 94640; 99285; 99406; A9270-GY; G0480; G8978-GP-CH; G8979-GP-CH; G8980-GP-CH; J2060

== ENCOUNTER 2017-09-13 11:20 | Emergency (ER) | payer MEDICARE, MEDICAID ==
[2017-09-13] MEDS ORDERED: NS 0.9% 1000 ML* 1,000 ML IV ONE (11:37)
--- NOTE | 2017-09-13 11:44 | ED ---
Headache - HPI Summary HPI Summary: This is chema Juarez documenting for attending Emeterio Caraballo M.D. Pt is a 57 y/o female who presents to [facility] c/o headache. She fell 6 weeks ago and was admitted [place] [facility] [place] a subarachnoid hemorrhage. She has been to [facility] [place] since then, and was once sent to [place], where she was diagnosed with reversible cerebrovascular vasoconstriction syndrome. 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 Last night, she woke up with left heel numbness, left calf hardness, left upper leg pain, and a sharp stabbing headache on the top of her head and over her temples R>L. Since then, the numbness has resolved but the headache is still a 7/10 in severity. Pt was sent here by Dr. Pompa (neurosurgery) to see neurology. She also c/o spasms, fatigue, bloodshot eyes, and sinus congestion. Pt denies any fever, sore throat, cough, or abnormal gait. She states she has had a headache for a while which finally resolved a few days ago before returning last night. Pt is a smoker. She currently is on Magnesium, but denies taking any blood thinners. Pt also has increased her salt intake. - History Of Current Complaint Chief Complaint: EDHeadache Stated Complaint: HEAD PAIN/TINGLING Time Seen by Provider: 09/13/17 11:29 Hx Obtained From: Patient Onset/Duration: Gradual Onset, Started days ago - Last night, Still Present Currently Pain Is: Current Pain Scale(0-10)= - 7, Moderate Timing: Constant Character: Sharp - Stabbing Location of Headache: Other: - Top of head, temples R>L Allevating Factors: Nothing Associated Signs And Symptoms: Sinus Pressure Related History: Recent Trauma: - Fall 6 weeks ago - subarachnoid hemorrhage - Allergies/Home Medications Allergies/Adverse Reactions: Allergies Allergy/AdvReac Type Severity Reaction Status Date / Time acetaminophen [From Vicodin] Allergy Rash Verified 09/13/17 11:25 Adhesive Tape Allergy Unknown Verified 09/13/17 11:25 Reaction Details hydrocodone [From Vicodin] Allergy Rash Verified 09/13/17 11:25 Penicillins Allergy Rash Verified 09/13/17 11:25 prednisone Allergy GI Upset Verified 09/13/17 11:25 varenicline [From Chantix] Allergy Rash Verified 09/13/17 11:25 Home Medications: Home Medications Acetaminophen TAB* [Tylenol TAB*] 325 mg PO TID PRN 09/13/17 [History Confirmed 09/13/17] Baclofen TAB* [Lioresal TAB*] 20 mg PO TID 09/13/17 [History Confirmed 09/13/17 ] Verapamil TAB* [Calan TAB*] 240 mg PO TID 09/13/17 [History Confirmed 09/13/17] PMH/Surg Hx/FS Hx/Imm Hx Endocrine/Hematology History: Denies: Hx Diabetes, Hx Thyroid Disease Cardiovascular History: Reports: Hx Angina Denies: Hx Coronary Artery Disease, Hx Hypercholesterolemia, Hx Hypertension , Hx Myocardial Infarction, Hx Pacemaker/ICD, Hx Valvular Heart Disease Respiratory History: Reports: Hx Chronic Obstructive Pulmonary Disease (COPD) Denies: Hx Asthma GI History: Reports: Hx Gall Bladder Disease - Cholecystectomy Denies: Hx Ulcer History: Reports: Hx Kidney Infection Denies: Hx Renal Disease Musculoskeletal History: Reports: Hx Arthritis, Hx Back Problems, Hx Fibromyalgia, Hx Osteoporosis Denies: Other Musculoskeletal History Sensory History: Denies: Hx Contacts or Glasses, Hx Hearing Aid Opthamlomology History: Denies: Hx Contacts or Glasses Neurological History: Reports: Hx Headaches, Hx Migraine, Other Neuro Impairments/Disorders - Subarachnoid hemorrhage, Reversible cerebrovascular constriction syndrome Psychiatric History: Reports: Hx Anxiety, Hx Depression Denies: Hx Panic Disorder, Other Psychiatric Issues/Disorders - Cancer History Cancer Type, Location and Year: cervical Hx Chemotherapy: No Hx Radiation Therapy: No - Surgical History Surgery Procedure, Year, and Place: cholesystectomy. hysterectomy. lypmh node removed from neck Hx Anesthesia Reactions: No Infectious Disease History: No Infectious Disease History: Denies: Hx Clostridium Difficile, Hx Hepatitis, Hx Human Immunodeficiency Virus (HIV), Hx of Known/Suspected MRSA, Hx Shingles, Hx Tuberculosis, Hx Known/ Suspected VRE, Hx Known/Suspected VRSA, History Other Infectious Disease, Traveled Outside the [place] in Last 30 Days - Family History Known Family History: Positive: Cardiac Disease, Respiratory Disease - COPD, Other - cancer Negative: Renal Disease, Seizure Disorder, Blood Disorder - Social History Alcohol Use: None Substance Use Type: Reports: None Smoking Status (MU): Heavy Every Day Tobacco Smoker Type: Cigarettes Amount Used/How Often: 1 ppd Length of Time of Smoking/Using Tobacco: 33 years Have You Smoked in the Last Year: Yes Review of Systems Positive: Fatigue. Negative: Fever Positive: Erythema - Bloodshot Positive: Other - Sinus congestion. Negative: Sore Throat Negative: Cough Positive: Myalgia - Upper left leg Positive: Headache, Numbness - Left heel. Negative: Slurred Speech All Other Systems Reviewed And Are Negative: Yes Physical Exam - Summary Physical Exam Summary: Appearance: Well appearing, no pain distress Skin: warm, dry, reflects adequate perfusion Head/face: normal Eyes: EOMI, CANDIE ENT: normal Neck: supple, non-tender Respiratory: CTA, breath sounds present Cardiovascular: RRR, pulses symmetrical Abdomen: non-tender, soft Bowel Sounds: present Musculoskeletal: normal, strength/ROM intact Neuro: normal, sensory motor intact, A&Ox3 NIH: 0 GCS: 15 Triage Information Reviewed: Yes Vital Signs On Initial Exam: Initial Vitals Temp Pulse Resp BP Pulse Ox 99.5 F 73 16 101/67 97 09/13/17 11:22 09/13/17 11:22 09/13/17 11:22 09/13/17 11:22 09/13/17 11:22 Vital Signs Reviewed: Yes Diagnostics - Vital Signs Vital Signs Temp Pulse Resp BP Pulse Ox 09/13/17 11:22 99.5 F 73 16 101/67 97 - Laboratory Result Diagrams: 09/13/17 11:37 09/13/17 11:37 Lab Statement: Any lab studies that have been ordered have been reviewed, and results considered in the medical decision making process. - Radiology Brain MRI Xray Interpretation: Positive (See Comments) - 13:29 No definite intracranial mass is noted. Areas of signal abnormality in the posterior medial left parietal lobe and posterior lateral right parietal lobe may represent small areas of prior infarct. The appear to be corresponding to the hypodense areas on the CT scan. No definite restriction of diffusion to suggest acute infarct is noted. ED physician reviewed radiology report. Radiology Interpretation Completed By: Radiologist - CT Brain CT CT Interpretation: No Acute Changes - 11:28 NO EVIDENCE OF ACUTE INTRACRANIAL HEMORRHAGE. ED physician reviewed radiology report. CT Interpretation Completed By: Radiologist Headache Course/Dx - Course Course Of Treatment: Patient with complex medical history to include subarachnoid hemorrhage, CVA in the past. She is followed at the [facility]. Her neurologist here was applications coordinator and was contacted to evaluate at the bedside. Head CT was negative for acute hemorrhage but there were some hypodensity seen that looked new. An MRI was obtained and found this to be consistent with her old infarct. The neurologist again saw her and cleared her for discharge. She is to follow-up with the stroke neurologist upcoming days at [facility]. - Diagnoses Provider Diagnoses: Temporal headache, History of cerebrovascular accident, History of subarachnoid hemorrhage, Reversible cerebrovascular vasoconstriction syndrome - Physician Notifications Discussed Care Of Patient With: Genie Fernandez Time Discussed With Above Provider: 12:21 Instructed by Provider To: Will See In ED - Dr. Fernandez will visit pt in the ED. At 13:25 Dr. Fernandez wants an acute head MRI. At 16:16 Dr. Fernandez was informed of the MRI results and will come to the ED. - Critical Care Time Critical Care Time: 30-74 min - Critical care time is exclusive of separately billable procedures Discharge - Sign-Out/Discharge Documenting (check all that apply): Patient Departure - Discharge - Discharge Plan Condition: Improved Disposition: HOME Prescriptions: Promethazine TAB* [Phenergan Tab*] 25 mg PO Q6H PRN #20 tab PRN Reason: headache, nausea Patient Education Materials: Acute Headache (ED) Referrals: Genie Fernandez MD [Medical Doctor] - Bo Scott DO [Primary Care Provider] - Additional Instructions: Return if worse, new symptoms,'s more severe headache, vomiting, or other concerns as discussed. Follow up with your neurologist. - Billing Disposition and Condition Condition: IMPROVED Disposition: Home
[2017-09-13 11:47] LABS: ABS Basophils 0.1 10^3/ul (0-0.2); ABS Eosinophils 0.2 10^3/ul (0-0.6); ABS Lymphocytes 2.5 10^3/ul (1.0-4.8); ABS Monocytes 0.4 10^3/ul (0-0.8); ABS Neutrophils 3.1 10^3/ul (1.5-7.7); ABS Nucleated RBC 0 10^3/ul; Eosinophil % 2.7 % (0-6); Hematocrit 39 % (35-47); Lymphocyte % 40.2 % (25-47); Mean Corpuscular HGB Conc 34 g/dl (31-36); Mean Corpuscular Hemoglobin 30 pg (27-31); Mean Corpuscular Volume 90 fL (80-97); Mean Platelet Volume 7.6 um3 (7.4-10.4); Nucleated Red Blood Cells % 0; Platelet Count 244 10^3/ul (150-450); Red Cell Distribution Width 16 % (10.5-15); White Blood Count 6.3 10^3/ul (3.5-10.8)
--- NOTE | 2017-09-13 12:01 | RAD ---
INDICATION: Headaches. History of subarachnoid hemorrhage COMPARISON: August 18, 2017 TECHNIQUE: Noncontrast axial source images were acquired from the skull base to the vertex. FINDINGS: Ventricles/sulci: The ventricles and cisterns are normal in size and configuration for age. Brain parenchyma: There is no focal parenchymal finding, evidence of intracranial mass, or intracranial mass effect. Intracranial hemorrhage:There is of intraparenchymal hemorrhage in the right frontal and left parietal lobes are not clearly evident on today's examination. There are no new areas of intraparenchymal hemorrhage.. Extra-axial spaces: There are no abnormal extra axial fluid collections or evidence of extra-axial mass. Calvarium: There is no calvarial fracture or other calvarial abnormality. Scalp: There is no evidence of scalp or extracalvarial soft tissue abnormality. Paranasal sinuses/mastoid: The paranasal sinuses and mastoid air cells are clear. Other: None. IMPRESSION: NO EVIDENCE OF ACUTE INTRACRANIAL HEMORRHAGE.
[2017-09-13 12:03] LABS: EGFR Non-African American 81.9 (>60)
--- OUTSIDE RECORDS SUMMARY | 2017-09-13 12:05 | XMS REPORT ---
:1960 External Reference #:[id number] Author Organization [employer] Address [address] [facility] [address] Phone [phone] Care Team Providers Name Role Phone Bo Scott DO Primary Care Physician Unavailable Payers Type Date Identification Numbers Payment Provider Subscriber Medicare Primary Effective: Policy Number: Medicare Jina Thomas 2007 [id number] PayID: [id number] [address] [place] [address] [facility] Part B Policy Number: [id number] Medicaid Jina Thomas PayID: [id number] [address] [place] [address] Problems Date Description Provider Status Onset: 05/13/2010 Tobacco user Mary Ann Ibarra M.D., [facility] Active Onset: 05/13/2010 Myalgia & Myositis Unspec Feroz Christie M.D. Active Onset: 03/26/2015 Atrial fibrillation Orion Klein M.D., [facility] Active Onset: 03/26/2015 Sinus node dysfunction Orion Klein M.D., [facility] Active Onset: 03/26/2015 Dyspnea Orion Klein M.D., [facility] Active Onset: 03/26/2015 Palpitations Orion Klein M.D., [facility] Active Family History Date Family Member(s) Problem(s) Comments General Stomach Cancer brother General Hypertension brothers General Aneurysm Brother Father 78 Father Peripheral Vascular Disease (PVD) Father Chronic Obstructive Pulmonary Disease (COPD) Mother 75 Mother Cancer, Throat Mother Chronic Obstructive Pulmonary Disease (COPD) Siblings 4 brothers: HTN, CAD Social History Type Date Description Comments Marital Status Lives With Alone 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 Occupation Disabled Cigarette Use Patient is a current cigarette smoker, smokes every day Cigarette Use Current Cigarette Smoker 1 Pack Daily Cigarette Use Pack Years - 30 ETOH Use Currently consumes alcohol 2-4 drinks per week, not every week Smoking Patient is a current smoker, 1/2PPD or less, 30+ years smokes every day of 1PPD Recreational Drug Use Denies Drug Use Daily Caffeine Consumes on average 4 cups of 2-4 cups daily at most regular coffee per day Exercise Type/Frequency Does not exercise Allergies, Adverse Reactions, Alerts Date Description Reaction Status Severity Comments 09/23/2009 Vicodin rash active Moderate 09/23/2009 Augmentin donna,upset stomach active Severe 05/13/2010 Penicillins Urticaria active Moderate 03/20/2015 Chantix active 03/20/2015 Adhesives active Medications Medication Date Status Form Strength Qnty SIG Indications Ordering Provider Baclofen Active Tablets 10mg 1 tab po Unknown / qHS prn Magnesium Active Tablets 400mg 1 by mouth Unknown / every day Verapamil HCL Active Tablets 40mg 1 by mouth Unknown /0000 three times a day Citalopram 09/20 Hx Tablets 10mg 30tab 1 po qd 311 Mary Ann Hydrobromide Isabelle Yee M.D., 10/18 FACP Cheratussin ac 06/03 Hx Syrup 100-10mg/5ML 200ml 1-2 tsp q.i.d. as Stacey, - needed for M.D., 03/25 cough FACP Omeprazole 12/[address] 20mg 90cap 1 po qd Isabelle Yee M.D., 09/20 FAC Tobradex 12/16 Hx Ointment 0.3-0.1% AT hs Isabelle Ibarra M.D., 10/18 FACP Fluticasone 12/16 Hx Suspension 50mcg/Act 1unit 1 spray Mary Ann Propionate s each Stacey, - nostril in M.D., 09/12 am FACP Biaxin 05/30 Hx Tablets 500mg 20tab 1 by mouth s twice Stacey, - daily for M.D., 11/14 10 days FAC Z Pack 05/15 Hx Tablets 250mg 5tabs as Mary Ann directed. Isabelle Ibarra M.D., 11/14 FAC Chantix 03/31 Hx Tablets 1mg 56tab Take as s Directed Isabelle Ibarra M.D., 07/13 Chantix 01/22 Hx Tablets 0.5mg X 11 & 1tabs use as 1 mg X directed Isabelle Ibarra M.D., 03/31 Physical 12/30 Hx Cervicalgia Mary Ann Therapy Isabelle Ibarra M.D., 12/30 FAC Neck Brace 12/30 Hx Cervicalgia Mary Ann Isabelle Ibarra M.D., 01/22 Combivent 09/30 Hx 2unit 2 puffs Mary Ann Inhaler /2009 s four times Stacey, - daily as M.DTanya, 09/12 needed FAC Chantix 09/30 Hx Start Pack 1unit use as s directed Isabelle Ibarra M.D., 01/22 Flexeril 09/30 Hx Tablets 5mg 90tab 1 at s bedtime as Isabelle Ibarra needed M.D., 03/25 FAC Levsin Hx Tablets 0.125mg 120ta take 1 Mary Ann / bs four times Stacey, - daily as M.DTanya, 12/16 needed Ciprofloxacin Hx Tablets 500mg 20tab 1 po bid Unknown HCL /0000 s - 07/13 Ventolin HFA Hx Aerosol 108(90Base) 1unit 2 puffs po Unknown /0000 mcg/ac s qid prn - 09/12 Levaquin Hx Tablets 750mg 7tabs once daily Unknown /0000 - 03/25 Spiriva Hx Capsules 18mcg 1 unit Unknown Handihaler /0000 inhalation - daily prn 09/12 Enzyme Digest 00 Hx Capsules 1 prior to Unknown /0000 each meal - 09/12 Excedrin 00 Hx Tablets [id number] 1 tablet Unknown Migraine /0000 by mouth - three 09/12 times day, as needed persitent headache Nicorette 00 Hx Lozenges 4mg as needed Unknown /0000 - usually - 3 per day 09/12 Immunizations CPT Code Status Date Vaccine Lot # [id number] Given 12/18/2011 Afluria Vaccine [id number] Given 12/20/2007 Influenza Virus 3Yrs & Over Vital Signs Date Vital Result Comment 2017 Height 64 inches 5'4" Weight 134.25 lb Heart Rate 60 /min BP Systolic Sitting 120 mmHg BP Diastolic Sitting 76 mmHg Respiratory Rate 16 /min Body Temperature 98.0 F BMI (Body Mass Index) 23.0 kg/m2 04/18/2015 Height 64 inches 5'4" Weight 139.00 lb with shoes Heart Rate 60 /min 72 BP Systolic Sitting 110 mmHg right arm, reg cuff BP Diastolic Sitting 70 mmHg right arm, reg cuff BP Systolic Standing 102 mmHg right arm, reg cuff BP Diastolic Standing 68 mmHg right arm, reg cuff Respiratory Rate 20 /min BMI (Body Mass Index) 23.9 kg/m2 Ejection Fraction 73% 04/16/15 NLM 03/26/2015 Height 64 inches 5'4" Weight 138.00 lb Heart Rate 60 /min 68 BP Systolic 112 mmHg left arm, reg cuff BP Diastolic 66 mmHg left arm, reg cuff BP Systolic Sitting 100 mmHg right arm, reg cuff BP Diastolic Sitting 68 mmHg right arm, reg cuff BP Systolic Standing 96 mmHg right arm, reg cuff BP Diastolic Standing 68 mmHg right arm, reg cuff Respiratory Rate 20 /min BMI (Body Mass Index) 23.7 kg/m2 Ejection Fraction 62% 12/26/07 NLM 10/19/2011 Height 63.5 inches 5'3.50" Weight 143.25 lb Heart Rate 68 /min BP Systolic Sitting 100 mmHg BP Diastolic Sitting 60 mmHg Body Temperature 97.8 F BMI (Body Mass Index) 25.0 kg/m2 09/21/2011 Height 63.5 inches 5'3.50" Weight 141.75 lb Heart Rate 72 /min BP Systolic Sitting 110 mmHg BP Diastolic Sitting 62 mmHg BMI (Body Mass Index) 24.7 kg/m2 07/14/2011 Height 63.5 inches 5'3.50" Weight 146.00 lb Heart Rate 74 /min BP Systolic Sitting 112 mmHg BP Diastolic Sitting 62 mmHg BMI (Body Mass Index) 25.5 kg/m2 12/16/2010 Height 63.5 inches 5'3.50" Weight 147.50 lb Heart Rate 78 /min BP Systolic Sitting 90 mmHg BP Diastolic Sitting 62 mmHg BMI (Body Mass Index) 25.7 kg/m2 05/13/2010 Weight 150.00 lb Heart Rate 80 /min BP Systolic 110 mmHg BP Diastolic 60 mmHg Body Temperature 100.1 F 01/22/2010 Weight 146.75 lb Heart Rate 74 /min BP Systolic 106 mmHg BP Diastolic 70 mmHg 12/30/2009 Weight 145.50 lb Heart Rate 56 /min BP Systolic 96 mmHg BP Diastolic 64 mmHg Results Test Date Test Result H/L Range Note Lipid Profile (Trig/Chol/HDL) 11/23/2011 Triglyceride 76 mg/dL 40-200 1 Cholesterol 208 mg/dL High Less Than 200 1, 2 High Density Lipoprotein 54 mg/dL 40-60 1, 3 Cholesterol/HDL Ratio 3.85 AVERAGE 1-4.44 1 Low Density Lipoprotein 139 mg/dL High Less Than 100 1, 4 Laboratory test finding 11/23/2011 Glucose 86 mg/dL 70-100 1 Laboratory test finding 07/14/2011 Erythrocyte Sed Rate 16 MM/HR 0-30 C Reactive Protein 0.7 mg/dL High Less Than 0.5 Sputum Culture & Sensitiv 05/28/2011 M <SEE NOTE> 5 Throat Culture Full 05/28/2011 M <SEE NOTE> 6 1 PATIENT HAD A COUGH DROP PRIOR TO BLOOD WORK 2 CHOLESTEROL INTERPRETATION: Desirable: Less than 200 MG/DL Borderline-High Risk: 200-239 MG/DL High-Risk: 240 MG/DL and over 3 HDL INTERPRETATION: Undesirable: High Risk: Less than 40 MG/DL Desirable: Low Risk: Greater than 60 MG/DL 4 LDL INTERPRETATION: Low Risk Optimal Level: LDL Less than 100 MG/DL Near or Above Optimal: LDL 100-129 MG/DL Borderline High Risk: LDL 130-159 MG/DL High Risk: LDL 160-189 MG/DL Very High Risk: LDL Greater than 189 MG/DL 5 RUN DATE: 05/30/11 [facility] NMI LIVE PAGE 1 RUN TIME: 1249 Specimen Inquiry RUN USER: INTERFACE Name: JINA THOMAS Status: DEP CLI Re05/28/11 Age/Sex: 50/F Unit#: [id number] Location: [facility] : 59 SPEC #: [id number] HAZEL: 05/28/11 STATUS: HARINDER REQ #: [id number] RECD: 05/28/[address]: Arik HARRIS,Mauricio Canela SOURCE: SPUTUM ENTR: 05/28/[address]: Mary Ann Ibarra MDESC: ORDERED: SPUTUM CS/SMEAR QUERIES: GRAM STAIN INCLUDED. Y ACT WKST: B 05/30/11 #1 Procedure Result Verified Site > SPUTUM SMEAR Final 05/29/11- 0756 ML POLYS MANY EPITHELIAL CELLS FEW SMEAR: FEW GRAM POSITIVE COCCI MOD GRAM NEGATIVE COCCOBACILLI FEW GRAM POSITIVE BACILLI > SPUTUM CULTURE SENSITIV Final 05/30/11- 1249 ML NORMAL RESPIRATORY NAE ML - [facility] Permit #[id number] [address] [place] [address] DEPARTMENT OF PATHOLOGY, [address] [place] [address] [facility] Permit #[id number] Casey Aguilar M.D. Director Felix Nolen M.D. Pattern Data Operator 6 RUN DATE: 05/30/11 [facility] NMI LIVE PAGE 1 RUN TIME: 1249 Specimen Inquiry RUN USER: INTERFACE Name: SHWETA THOMASAnne Marie Status: SERJIO CLI Re05/28/11 Age/Sex: 50/F Unit#: [id number] Location: [facility] : 59 SPEC #: [id number] HAZEL: 05/28/112 STATUS: HARINDER REQ #: [id number] RECD: 05/28/11-[address]: Arik HARRIS,Mauricio Canela SOURCE: THROAT ENTR: 05/28/11-[address]: Mary Ann Ibarra MD SPDESC: ORDERED: THROAT CULTURE ACT WKST: B 05/30/11 #1 Procedure Result Verified Site > THROAT CULTURE FULL Final 05/30/11- 1249 ML NORMAL THROAT NAE FULL THROAT CULTURES ARE CLINICALLY INDICATED TO DETECT THE PRESENCE OF GROUP A STREP, ARCANOBACTERIUM AND YEAST. - [facility] Permit #[id number] Formerly named [facility] [employer] [facility] [address] DEPARTMENT OF PATHOLOGY, Formerly named [facility] [employer] [place], [place] [address] [facility] Permit #[id number] Casey Aguilar M.D. Director Felix Nolen M.D. Pattern Data Operator Procedures Date CPT Code Description Status Comment 04/16/2015 62997 Treadmill Interp/Report Only Completed 04/16/2015 86403 Stress Test Supervsn W/Out I/R Completed 03/26/2015 38162 EKG Tracing & Interpretation Completed 11/23/2011 Mammogram Completed 12/16/2010 38974 EKG Tracing & Interpretation Completed 05/19/2010 Diabetic Retinal Eye Exam Completed Document: 05/19/10 - Consult OphthalmologyElbert 01/28/2010 Mammogram Completed 01/09/2008 Colonoscopy Completed 12/29/2007 26538 Holter Monitor Review (24 hr) Completed review & interp only 12/20/2007 52590 EKG Tracing & Interpretation Completed 12/20/2007 96999 EKG Tracing & Interpretation Completed Encounters Type Date Location Provider CPT E/M Dx Office Visit 08/20/2017 [facility] aelxus Palencia M.D. 69481 R51 10:55a Hospitalists I60.9 J44.9 J32.9 Office Visit 08/19/2017 10:55a [place] alexus Paul [address]54[address] R51 Jimi Saunders I60.9 J44.9 J32.9 Office Visit 08/18/2017 10:55a [facility] alexus Palencia M.D. 09657 R51 Hospitalists R41.82 Office Visit 08/17/2017 10:54a [place] [address] R51 Assoc, Hospitalists Office Visit 08/16/2017 7:00a [facility] Vass[place] 32108 S06.6x0D Of Dedrick Pompa MD M47.12 Office Visit 08/16[facility]2017 [facility] [address] S06.6x0D Assoc,pc Hospitalists MD Popeye R41.82 J01.90 Office Visit 08/15/2017 7:00a [facility] [place] [address] S06.6x0D Services Of Dedrick Pompa MD Office Visit 08/15/2017 2:54p [facility] Aquilino Lema 14557 I60.9 Assoc,pc MD Popeye Hospitalists R41.82 J32.9 J44.9 Office Visit 08/14/2017 2:54p [facility] Assoc,pc GUI aGrcia 52781 I60.9 Hospitalists R41.82 J44.9 G44.201 Office Visit 03/26/2015 3:00p [facility] Of Orion Klein M.D., 52857 R00.2 Mask Design Engineer AT [facility], FSCAI R06.02 I49.5 I48.0 Office Visit 10/19/2011 11:20a [facility] Internal Medicine - Mary Ann Ibarra M.D., 11076 [address] [place] FACP 305.1 466.0 Office Visit 09/21/2011 10:00a [facility] Internal Medicine Mary Ann Ibarra M.D., 54758 V62.82 - [place] FACP 311 305.1 338.4 Office Visit 07/14/2011 3:00p Rheumatology Services Chito Ivan, 83613 338.4 Of Dedrick Saunders Office Visit 12/16/2010 3:00p DO Not Use Mary Ann Ibarra M.D., 30512 V72.84 [employer] FACP 620.2 496 305.1 Office Visit 05/13/2010 1:30p DO Not Use [employer] Mary Ann Ibarra M.D., 16295 462 FACP 305.1 Office Visit 01/22/2010 3:00p DO Not Use [employer] [facility] Mary Ann Ibarra 08210 611.71 Nicky, FACP Office Visit 12/30/2009 10:15a DO Not Use [employer] Mary Ann Ibarra 54560 723.1 MLakeshia, FACP 728.85 Office Visit 09/30/2009 12:00p DO Not Use [employer] [facility] Mary Annfely Ibarra, 41560 786.2 M.D., FACP 496 Office Visit 09/26/2009 8:45a [facility] Services Of Boaz Scales, 65091 728.89 C.M.A. M.DTanya 726.5 Office Visit 05/21/2009 9:00a DO Not Use [employer] [facility] Mary Annfely Ibarra, 89861 789.09 M.D., FACP 578.1 Office Visit 05/15/2009 11:15a DO Not Use [employer] Mary Ann Stacey, 00671 723.1 M.D., FACP Office Visit 11/21/2008 1:00p [facility] Of Feroz EdgarTanya Christie, 02737 729.1 Mask Design Engineer M.D. Office Visit 10/17/2008 10:15a DO Not Use [employer] [facility] Mary Ann Stacey, 65477 723.4 M.D., FACP Office Visit 06/27/2008 3:45p DO Not Use [employer] Mary Annfely Ibarra, 81899 727.43 M.D., FACP Office Visit 03/29/2008 3:00p DO Not Use [employer] [facility] Mary Annfely Ibarra, 99153 133.0 M.D., FACP Office Visit 03/27/2008 11:00a DO Not Use [employer] [facility] Mary Ann Ibarra, 50720 461.9 M.D., FACP 491.21 Office Visit 03/05/2008 11:00a DO Not Use Doretha Grajeda, 18616 461.9 [employer] [facility] N.P. Office Visit 12/20/2007 2:15p DO Not Use Doretha Grajeda, 79283 786.50 [employer] [facility] N.P. 785.1 V04.81 Office Visit 12/15/2007 9:30a DO Not Use [employer] [facility] Doretha Grajeda, 23607 692.9 N.P. 530.81 564.1 Office Visit 12/08/2007 2:45p DO Not Use Mary Ann Ibarra M.D., 86007 789.07 [employer] FACP Office Visit 12/07/2007 1:30p DO Not Use Doretha Grajeda, 69267 V70.0 [facility] N.P[facility] Office Visit 09/29/2007 9:00a Neurosurgery Services Feroz MTanya Christie, 15136 729.1 Of Dedrick Saunders Plan of Care Future Appointment(s):12/14/2017 9:00 am - Aylin Pompa MD at [facility]2017 - Aylin Pompa, MDR51 HeadacheReferral:Genie Fernandez MD, NeurologyFollow up:RV in [address] Hendrix's office for possible early appointment if needed.I60.9 Nontraumatic subarachnoid hemorrhage, unspecified
--- OUTSIDE RECORDS SUMMARY | 2017-09-13 12:06 | XMS REPORT ---
:1960 External Reference #:[id number] Author Organization [employer] Address [address] [place] [address] Phone [phone] Care Team Providers Name Role Phone Bo Scott D.O. Primary Care Physician Unavailable Payers Type Date Identification Numbers Payment Provider Subscriber Medicare Primary Policy Number: [id number] Medicare - [facility] Luiz Cristina PayID: [id number] [address] [place] [address] Medicaid Policy Number: [id number] Medicaid Luiz Cristina PayID: [id number] [address] [place] [address] Problems Date Description Provider Status Onset: Ankylosing spondylitis Active Onset: Primary fibromyalgia syndrome Active Onset: Spinal stenosis Active Onset: Osteoarthritis Active Onset: 08/31/2017 Cerebral artery occlusion Anabel Leonard O.D. Active Family History Date Family Member(s) Problem(s) Comments Father No Current Problems Mother Cataract Social History Type Date Description Comments Marital Status Legal Status: Work Status Disabled ETOH Use Denies alcohol use Smoking Patient is a former smoker Recreational Drug Use Denies Drug Use Daily Caffeine Consumes on average 1 cup of regular coffee per day Allergies, Adverse Reactions, Alerts Date Description Reaction Status Severity Comments 10/23/2014 Penicillins Urticaria active 10/23/2014 Hydrocodone Urticaria active 08/31/2017 Varenicline active 08/31/2017 Adhesive active Medications Medication Date Status Form Strength Qnty SIG Indications Ordering Provider Tylenol Extra 0 Active Tablets 500mg every 4 Unknown Strength 000 hours Verapamil HCL Active Tablets 80mg Unknown 000 Baclofen Active Tablets 20mg Unknown 000 Magnesium Active Capsules 500mg Unknown Oxide 000 (Antacid) Visine Tears Active Solution 0.2-0.2-1% 1 drop Unknown 000 both eyes as needed Results Description No Information Procedures Date CPT Code Description Status 07/03/2011 79224 Est Patient Intermediate Exam Completed 01/09/2011 43711 Est Patient Intermediate Exam Completed 05/16/2010 69681 New Patient Intermediate Exam Completed Encounters Type Date Location Provider CPT E/M Dx Office Visit 07/10/2011 1:15p Mando Moreno MD, Brenda Boswell, 25241 372.14 pc O.D. Office Visit 01/28/2011 4:15p Mando Moreno MD, Brenda Boswell, 48947 372.30 pc O.D. Office Visit 05/19/2010 2:30p Mando Moreno MD, Brenda Boswell, 38879 372.30 pc O.D. Plan of Care 08/31/2017 - Anabel Leonard O.D.I63.9 Cerebral infarction, unspecifiedComments: Smoking can increase the risk of developing or worsening any eye related disease , as well as affect your overall health. If you are a smoker, we strongly recommend that you quit.If you are not a smoker, we strongly recommend that you do not start. After a stroke or a brain injury, it can be difficult to focus on near tasks. Make sure you take frequent breaks when reading etc. This should improve over time.Follow up:6 weeks review of symptoms
--- OUTSIDE RECORDS SUMMARY | 2017-09-13 12:06 | XMS REPORT ---
:1960 External Reference #:[id number] Author Organization [facility] Address [address] [place] [address] Phone [phone] Care Team Providers Name Role Phone HCP/LW on file Primary Care Physician Unavailable Payers Type Date Identification Numbers Payment Provider Subscriber Medicare Primary Effective: Policy Number: [facility] Jina Thomas 2007 [id number] Services PayID: [id number] [address] [place] [address] Workers Compensation Effective: Policy Number: [facility] Jina Thomas 2016 [id number] [place] Expires: 2017 PayID: [id number] [place] [address] [facility] Policy Number: [id number] Medicaid Jina Thomas PayID: [id number] [place] [address] Problems Date Description Provider Status Onset: 05/02/2013 Acute bronchitis Bo Scott D.O. Active Onset: 05/02/2013 Acute maxillary sinusitis Bo Scott D.O. Active Onset: 05/02/2013 Tobacco user Bo Scott D.O. Active Onset: 11/02/2013 Chronic obstructive lung disease Bo Scott D.O. Active Onset: 11/02/2013 Low back pain Bo Scott D.O. Active Onset: 11/02/2013 Calcific tendinitis of shoulder Bo Scott D.O. Active Onset: 12/14/2013 Arthralgia of the pelvic region and Bo Scott D.O. Active thigh Onset: 12/14/2013 Constipation Bo Scott D.O. Active Onset: 01/15/2014 Irritable bowel syndrome Bo Scott D.O. Active Onset: 02/14/2014 Vitamin D deficiency Bo Scott D.O. Active Onset: 06/18/2014 Malaise and fatigue Bo Scott D.O. Active Onset: 05/22/2015 Generalized abdominal pain Bo Scott D.O. Active Onset: 05/22/2015 Gastric ulcer without hemorrhage, Bo Scott D.O. Active without perforation AND without obstruction Onset: 05/30/2015 Intestinal adhesions with obstruction Bo Scott D.O. Active Onset: 05/30/2015 Epigastric pain Bo Scott D.O. Active Onset: 04/09/2016 Neck pain Bo Scott D.O. 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 Recreational Drug Use Denies Drug Use Daily Caffeine Consumes Caffeine Daily Caffeine Consumes on average 4 cups of coffee per day Daily Caffeine Consumes on average 4 cups of tea per day Exercise Type/Frequency Exercises sporadically Sun Exposure Does not use sunscreen Seat Belt/Car Seat Seat Belt Use - Yes Currently Active Patient is currently sexually active Allergies, Adverse Reactions, Alerts Date Description Reaction Status Severity Comments 05/02/2013 Penicillins active 05/02/2013 Vicodin active 05/02/2013 Adhesives active on tape 05/07/2014 Chantix Urticaria, Eyes bugging out active Mild to Moderate Medications Medication Date Status Form Strength Qnty SIG Indications Ordering Provider Tylenol Extra 08/30 Active Tablets 500mg 360ta 1 by mouth , bs prn Kailee SorianoO. Baclofen 08/30 Active Tablets 20mg 90tab 1 by mouth M54.5 s three times Bo, a day D.O. Acetaminophen-C 08/29 Active Tablets 300-30mg one tab po Unknown odeine #3 every 4-6 hrs prn Verapamil HCL 08/29 Active Tablets 40mg one tab po Unknown three times daily Clobetasol 08/29 Active Ointment 0.05% apply Unknown topically two times a day prn rash Magox 400 08/29 Active Tablets 400(241.3 360ta 2-4 tablets R53.83 Sopchak, mg) mg bs every night Bo, at bedtime D.O. Baclofen 08/29 Hx Tablets 10mg take 1 M54.5 Sonia, tablet by Bo, - mouth at D.O. 08/30 night for muscle spasms Ondansetron HCL 08/13 Hx Tablets 4mg 30tab 1 by mouth Sopchristyk, s two times a Bo, - day as D.O. 08/29 needed for nausea Meloxicam 08/13 Hx Tablets 7.5mg 90tab 1 by mouth Yunik, s every day Bo, - D.O. 08/29 Doxycycline 08/12 Hx Tablets 100mg 42tab 1 tablet by Sonia Hyclate s mouth twice Bo, - daily x 21 D.O. Butalbital/Acet 08/12 Hx Capsules 50-300-40 14cap take 1 Sonia aminophen/Caffe mg s capsule by Bo, ine - mouth every D.O. 08/13 4 hours needed for headache max 3 a day Kelp W/Iodine 08/11 Hx - 08/29 Probiotic 08/11 Hx Capsules 1 by mouth every day - 08/29 Multivitamin 08/11 Hx Tablets 1 by mouth Unknown every day - 08/29 Clindamycin HCL 08/10 Hx Capsules 300mg 28cap 1 capsule by s mouth four - times a day 08/12 x 7 days Bupropion HCL 03/10 Hx Tablets ER 150mg 60tab 1 tablet by R53.83 Sonia, ER (Smoking 12HR s mouth 2 Bo, Det) - times per D.O. Ranitidine HCL 01/01 Hx Capsules 300mg 180ca 1 by mouth K25.9 Yuni ps twice a day Bo, - D.O. 08/11 Azithromycin 01/01 Hx Tablets 250mg 6tabs take 2 J44.1 christy tablets by Bo, - mouth one D.O. 01/06 time on the first day then take 1 tablet by mouth daily for 4 days Symbicort 01/01 Hx Aerosol 160-4.5mc 30.6g inhale 2 [facility] puffs by Bo, - mouth twice D.O. 08/29 a day gargle after use Baclofen 11/09 Hx Tablets 20mg 90tab 1 by mouth M54.5 christy s three times Bo, - a day D.O. 08/29 Doxycycline 09/30 Hx Capsules 100mg 20cap 1 twice a R05 Sonia Hyclate s day for 10 Bo, - days D.O. 10/10 Doxycycline 05/28 Hx Tablets 100mg 28tab 1 tab by A69.20 Demetrius Monohydrate s mouth twice GUI Rogers - a day x14 Azithromycin 04/23 Hx Tablets 250mg 6tabs 2 tabs by J20.9 Demetrius, mouth daily GUI Rogers - x1 day then 04/30 1 tab by mouth daily x4 days Bupropion HCL 04/09 Hx Tablets ER 150mg 60tab 1 tablet by R53.83 BOLIVAR Scott (Smoking 12HR s mouth 2 Bo, Det) - times per D.O. 09/29 day for smoking cessation Geritol 04/08 Hx Tablets 1 po daily Unknown Complete - 08/11 Nicorette 01/16 Hx Lozenges 4mg 168un dissolve 1 its lozenge by Bo, - mouth 20 D.O. 09/29 times per day as needed for smoking cessation Nicotine Step 1 12/17 Hx Patches 21mg/24HR 28uni 1 patch [facility] 24HR ts daily remove Bo, - old patch D.O. 07/10 before placing new patch. Bupropion HCL 12/04 Hx Tablets ER 150mg 60tab start 1 R53.83 Sonia, ER (Smoking 12HR s tablet daily Bo, Det) - for 3 days D.O. 04/08 take tablet by mouth 2 times per day for smoking cessation Afrin Sinus 11/28 Hx Solution 0.05% 15ml inhale 2 J01.00 [facility] sprays into Ob, - nostril 2 D.O. 12/01 times per day every 10 to 12 hours as needed for stuffy nose for 3 days only! Azithromycin 11/28 Hx Tablets 500mg 3tabs take 1 J. tablet by Bo, - mouth daily D.O. 12/01 for 3 days for infection Ropinirole HCL 09/22 Hx Tablets 0.25mg 90tab 1 by mouth 2 G25.81 [facility] s hours before Bo, - symptoms D.O. 04/08 usually 2017 occur Lidocaine 09/22 Hx Patches 5% 90uni apply 12 M54.5 ts hours on 12 Bo, - hours off as D.O. 12/31 needed to area of pain. Antihistamine 09/21 Hx as directed Unknown Generic Brand /2015 - 08/11 Nicorette 04/18 Hx Lozenges 4mg 168un Dissolve 1 R53.83 [facility] its lozenge by Bo, - mouth 20 D.O. 05/16 times per day as needed for smoking cessation Digestive 04/17 Hx 1 po daily Unknown Enzymes before meals - 11/27 Omeprazole 02/[address] 40mg 90cap 1 by mouth [facility] s every day Bo, - D.O. 02/11 Azelastine HCL 01/22 Hx Solution 0.15% 90ml instill one [facility].00 [facility], ([facility]as[facility] spray at [place], - night and D.O. 08/29 every hours as needed for nasal drainage Vitamin D3 12/27 Hx Capsules 5000Unit 180ca take 2 E55.9 ps capsules by Bo, - mouth every D.O. 08/29 day or tablets once a week Vitamin B 12/26 Hx Tablets 1 by mouth Unknown once daily - 08/11 Iron 12/26 Hx Tablets 325(65Fe) 1 by mouth mg every day. - take with a 09/29 bit of oj to enhance absorption. Spiriva 08/14 Hx Capsules 18mcg 30cap inhale the J45.30 [facility], [place] s contents of Bo, - 1 capsule D.O. 09/29 daily Nicotine Step 1 08/14 Hx Patches 21mg/24HR 30uni 1 patch 305.1 24HR ts daily remove Bo, - old patch D.O. 12/27 before placing new patch. Azelastine HCL 07/31 Hx Solution 0.15% 30ml 1 spray at 461.0 [facility] night and Bo, - every 12 D.O. /24 hours needed for nasal drainage Singulair 07/31 Hx Tablets 10mg 30tab 1 tablet by 493.00 s mouth once Bo, - daily for D.O. 08/14 allergies Vitamin D3 07/17 Hx Capsules 5000Unit 90cap take one 268.9 s capsule by Bo, - mouth every D.O. 12/27 day or tablets once a week Magox 400 07/17 Hx Tablets 400(241.3 90tab 2 tablets R53.83 mg) mg s every night Bo, - at bedtime D.O. 08/30 as Magnesium 02/13 Hx Tablets 250mg 2 PO AT hs prn - 07/16 Hyoscyamine 01/15 Hx Tablets 0.125mg 90tab 1 tablet tid 564.1 [facility], Sulfate s prn Bo, - D.O. 07/16 Oxycodone-Aceta 12/14 Hx Tablets 5-325mg 60tab 1-2 every 4 719.45 [facility], min s hours as Bo, - needed D.O. 07/17 severe pain code d Magnesium 12/14 Hx Tablets 100mg 90tab 1 by mouth 564.00 Sopchak, s every day Bo, - increase by D.O. 02/13 1 tablet every three nights until bowels are regular. Fish Oil 12/13 Hx Capsules 1000mg OTC 1 by mouth Unknown every day - 07/16 Calcium + D3 12/13 Hx Tablets 600-200mg OTC 1 by mouth Unknown -Unit every day - 07/16 Vitamin C 12/13 Hx OTC daily prn Unknown - 08/29 Multivitamin 12/13 Hx OTC 1 by mouth Unknown every day - 07/16 Hair Skin And 12/13 Hx OTC daily Unknown Nails Vitamin /2013 - 07/16 Tramadol HCL 11/02 Hx Tablets 50mg 60tab 1-2 by mouth 724.2 Sopchak, s every 6 Bo, - hours as D.O. 12/14 needed for pain Baclofen 11/02 Hx Tablets 10mg 90tab Take One M54.5 Sopchak, s Tablet By Bo, - Mouth AT D.O. 11/09 Bedtime With Food Or Milk Colcrys 05/16 Hx Tablets 0.6mg 30tab take 2 274.00 Sopchak, s immediately Bo, - then 1 1 D.O. 10/31 hour later. then next day take 1 twice a day. Bupropion HCL 05/16 Hx Tablets ER 150mg 90tab take 1 305.1 Sopchristyk, 24HR s tablet by Bo, - mouth daily D.O. 10/31 in the morning Chantix 05/16 Hx Tablets 0.5mg QS days 1-3: 1 305.1 Sopchak, qd; day 4-7: Bo, - bid #1 D.O. 10/31 starter pack refill # 1 continuing pack start 2 weeks after wellbutrin Levofloxacin 05/02 Hx Tablets 500mg 10tab 1 cap by 466.0 Sopchak, s mouth every Bo, - day D.O. 05/16 Fluticasone 05/02 Hx Suspension 50mcg/Act 48gm 2 sprays J01.00 Sopchak, into each Bo, - nostril D.O. 08/29 every day for nasal congestion. jasiel allergies. rinse mouth post Mucinex DM 04/19 Hx Tablets ER 60-1200mg Sopchak, 12HR Bo, Strength - D.O. 10/31 Stool Softener 04/10 Hx Capsules OTC 1-2 tabs po Sopchak, daily Bo, - D.O. 10/31 Vitamin D3 Hx Capsules 5000Unit 90cap 1 by mouth 268.9 Sopchak, /0000 s daily Bo, - D.O. 07/16 Levofloxacin Hx Tablets 750mg Unknown /0000 - 12/27 Proair HFA Hx Aerosol 108(90Bas 25.5g Inhale 4 J45.30 Sopchak, /0000 e) m puffs by Bo, - mcg/Act mouth every D.O. 08/11 4 hours for 2 days as needed for worsening of asthma Flovent HFA 00 Hx Aerosol 220mcg/Ac 36gm 2 puffs J45.20 Sopchak, /0000 t twice a day Bo, - rinse mouth D.O. 12/31 after use Nicorette Hx Lozenges 2mg Unknown /0000 - 04/08 Medications Administered in Office Medication Date Status Form Strength Qnty SIG Indications Ordering Provider injection, Administered Injection Sopchak, kenalog, 10 mg 017 Bo, D.O. injection, Administered Injection Sopchak, kenalog, 10 mg 017 Bo, D.O. injection, Administered Injection Sopchak, kenalog, 10 mg 014 Bo, D.O. Immunizations CPT Code Status Date Vaccine Lot # [id number] Given 11/05/2016 Influenza Virus Vaccine, Quadrivalent, Split, [id number] Preservative Free 01696 Given 01/17/2016 Prevnar 13 [id number] 09535 Given 12/05/2015 Influenza Virus Vaccine, Quadrivalent, Split, [id number] Preservative Free 29931 Given 11/02/2013 Pneumococcal Immunization [id number] 69554 Given 11/02/2013 Adacel or Boostrix, TDaP [id number] 63798 Given 11/02/2013 Influenza Virus Vaccine, Quadrivalent, Split, [id number] Preservative Free Vital Signs Date Vital Result Comment 08/30/2017 BP Systolic 110 mmHg BP Diastolic 70 mmHg Weight 132.00 lb with sandals 08/12/2017 BP Systolic 120 mmHg BP Diastolic 70 mmHg Body Temperature 97.8 F Height 64 inches 5'4"w/shoes Weight 139.00 lb w/shoes BMI (Body Mass Index) 23.9 kg/m2 01/01/2017 BP Systolic 106 mmHg BP Diastolic 68 mmHg Body Temperature 97.9 F 11/09/2016 BP Systolic 118 mmHg BP Diastolic 65 mmHg Weight 136.00 lb 11/05/2016 BP Systolic 98 mmHg BP Diastolic 58 mmHg Height 64 inches 5'4" Weight 136.00 lb w/shoes BMI (Body Mass Index) 23.3 kg/m2 09/30/2016 BP Systolic 100 mmHg BP Diastolic 60 mmHg Height 64 inches 5'4" Weight 135.00 lb BMI (Body Mass Index) 23.2 kg/m2 08/13/2016 BP Systolic 104 mmHg BP Diastolic 68 mmHg Weight 139.00 lb 07/10/2016 BP Systolic 98 mmHg BP Diastolic 62 mmHg Weight 140.00 lb 05/28/2016 BP Systolic 100 mmHg BP Diastolic 60 mmHg Body Temperature 98.2 F Weight 140.00 lb 04/23/2016 BP Systolic 105 mmHg BP Diastolic 60 mmHg Body Temperature 98.3 F Height 64.5 inches 5'4.50" with sneakers Weight 137.00 lb with sneakers BMI (Body Mass Index) 23.2 kg/m2 04/09/2016 BP Systolic 102 mmHg BP Diastolic 65 mmHg Weight 142.00 lb with boots 01/17/2016 BP Systolic 110 mmHg BP Diastolic 64 mmHg Weight 140.00 lb 12/05/2015 BP Systolic 103 mmHg BP Diastolic 53 mmHg Heart Rate 56 /min Weight 138.00 lb with shoes 11/29/2015 BP Systolic 104 mmHg BP Diastolic 55 mmHg Body Temperature 98.0 F Weight 136.00 lb 09/23/2015 BP Systolic 96 mmHg BP Diastolic 60 mmHg Height 64 inches 5'4" Weight 134.00 lb BMI (Body Mass Index) 23.0 kg/m2 05/30/2015 BP Systolic 105 mmHg BP Diastolic 60 mmHg 05/22/2015 BP Systolic 118 mmHg BP Diastolic 60 mmHg Body Temperature 98.0 F Weight 138.00 lb 04/18/2015 BP Systolic 109 mmHg BP Diastolic 61 mmHg Heart Rate 67 /min Weight 136.00 lb w/shoes 12/27/2014 BP Systolic 100 mmHg BP Diastolic 50 mmHg Height 64 inches 5'4" Weight 131.00 lb BMI (Body Mass Index) 22.5 kg/m2 08/14/2014 BP Systolic 97 mmHg BP Diastolic 58 mmHg Heart Rate 63 /min Weight 134.00 lb with sandals 07/31/2014 BP Systolic 109 mmHg BP Diastolic 60 mmHg Heart Rate 67 /min Body Temperature 97.9 F Weight 135.00 lb shoes on 07/17/2014 BP Systolic 116 mmHg BP Diastolic 56 mmHg Heart Rate 60 /min Height 64 inches 5'4" Weight 134.50 lb shoes on BMI (Body Mass Index) 23.1 kg/m2 06/18/2014 BP Systolic 100 mmHg BP Diastolic 60 mmHg Body Temperature 98.2 F Weight 138.00 lb 04/27/2014 BP Systolic 118 mmHg BP Diastolic 68 mmHg Height 64 inches 5'4" Weight 140.00 lb BMI (Body Mass Index) 24.0 kg/m2 04/24/2014 BP Systolic 117 mmHg BP Diastolic 65 mmHg Heart Rate 60 /min Weight 141.00 lb 02/14/2014 BP Systolic 89 mmHg BP Diastolic 56 mmHg Heart Rate 66 /min Weight 138.00 lb 01/15/2014 BP Systolic 118 mmHg BP Diastolic 64 mmHg Weight 136.50 lb 12/14/2013 BP Systolic 100 mmHg BP Diastolic 60 mmHg Weight 136.50 lb 11/02/2013 BP Systolic 100 mmHg BP Diastolic 62 mmHg Height 64 inches 5'4" Weight 135.00 lb BMI (Body Mass Index) 23.2 kg/m2 05/16/2013 BP Systolic 110 mmHg BP Diastolic 62 mmHg Weight 142.00 lb 05/02/2013 BP Systolic 120 mmHg BP Diastolic 74 mmHg Height 63.75 inches 5'3.75" Weight 143.00 lb BMI (Body Mass Index) 24.7 kg/m2 Results Test Date Test Result H/L Range Note Basic Metabolic Panel 08/17/2017 Sodium 138 mmol/L 135-145 Potassium 3.9 mmol/L 3.5-5.0 Chloride 105 mmol/L 101-111 Co2 Carbon Dioxide 26 mmol/L 22-32 Anion Gap 7 mmol/L 2-11 Glucose 133 mg/dL High 70-100 Blood Urea Nitrogen 19 mg/dL 6-24 Creatinine 0.86 mg/dL 0.51-0.95 BUN/Creatinine Ratio 22.1 High 8-20 Calcium 9.5 mg/dL 8.6-10.3 Egfr Non- 68.0 >60 Egfr 87.5 >60 1 CBC Auto Diff 08/17/2017 White Blood Count 11.9 10^3/uL High 3.5-10.8 Red Blood Count 4.83 10^6/uL 4.00-5.40 Hemoglobin 14.6 g/dL 12.0-16.0 Hematocrit 43 % 35-47 Mean Corpuscular Volume 89 fL 80-97 Mean Corpuscular Hemoglobin 30 pg 27-31 Mean Corpuscular HGB Conc 34 g/dL 31-36 Red Cell Distribution Width 14 % 10.5-15 Platelet Count 228 10^3/uL 150-450 Mean Platelet Volume 7.5 um3 7.4-10.4 Abs Neutrophils 8.8 10^3/uL High 1.5-7.7 Abs Lymphocytes 2.2 10^3/uL 1.0-4.8 Abs Monocytes 0.7 10^3/uL 0-0.8 Abs Eosinophils 0.1 10^3/uL 0-0.6 Abs Basophils 0.1 10^3/uL 0-0.2 Abs Nucleated RBC 0 10^3/uL Granulocyte % 74.0 % 38-83 Lymphocyte % 18.4 % Low 25-47 Monocyte % 5.9 % 0-7 Eosinophil % 0.9 % 0-6 Basophil % 0.8 % 0-2 Nucleated Red Blood Cells % 0 Laboratory test 08/14/2017 Ammonia 39 mcmol/L 16-53 finding Urine Drug SCR ED & 08/14/2017 Amphetamine Ur Screen None Detected None Detect Pain Clinic Barbiturates Urine Screen Presumptive Posi <SEE NOTE> None Detect 2 Benzodiazepine Urine Screen None Detected None Detect Urine Cannabinoids Screen None Detected None Detect Urine Cocaine Screen None Detected None Detect Urine Opiates Screen None Detected None Detect Urine Phencyclidine Screen None Detected None Detect 3 CBC Auto Diff 08/14/2017 White Blood Count 9.6 10^3/uL 3.5-10.8 Red Blood Count 5.18 10^6/uL 4.00-5.40 Hemoglobin 15.8 g/dL 12.0-16.0 Hematocrit 46 % 35-47 Mean Corpuscular Volume 88 fL 80-97 Mean Corpuscular Hemoglobin 31 pg 27-31 Mean Corpuscular HGB Conc 35 g/dL 31-36 Red Cell Distribution Width 14 % 10.5-15 Platelet Count 233 10^3/uL 150-450 Mean Platelet Volume 7.6 um3 7.4-10.4 Abs Neutrophils 6.2 10^3/uL 1.5-7.7 Abs Lymphocytes 2.6 10^3/uL 1.0-4.8 Abs Monocytes 0.6 10^3/uL 0-0.8 Abs Eosinophils 0.1 10^3/uL 0-0.6 Abs Basophils 0.1 10^3/uL 0-0.2 Abs Nucleated RBC 0 10^3/uL Granulocyte % 64.8 % 38-83 Lymphocyte % 27.3 % 25-47 Monocyte % 6.2 % 0-7 Eosinophil % 0.8 % 0-6 Basophil % 0.9 % 0-2 Nucleated Red Blood Cells % 0.1 Inr/Protime 08/14/2017 Inr 0.99 0.77-1.02 Laboratory test finding 08/14/2017 Partial Thrombo Time 29.3 seconds 26.0 -36.3 PTT Lactic Acid 0.7 mmol/L 0.5-2.0 4 Alcohol < 10 mg/dL <10 Troponin-I (TnI) 0.00 ng/mL <0.04 Comp Metabolic Panel 08/14/2017 Potassium 3.8 mmol/L 3.5-5.0 Chloride 104 mmol/L 101-111 Co2 Carbon Dioxide 23 mmol/L 22-32 Glucose 101 mg/dL High 70-100 Blood Urea Nitrogen 11 mg/dL 6-24 Creatinine 0.83 mg/dL 0.51-0.95 BUN/Creatinine Ratio 13.3 8-20 Calcium 9.5 mg/dL 8.6-10.3 Total Protein 6.8 g/dL 6.4-8.9 Albumin 4.0 g/dL 3.2-5.2 Globulin 2.8 g/dL 2-4 Albumin/Globulin Ratio 1.4 1-3 Total Bilirubin 0.80 mg/dL 0.2-1.0 Alkaline Phosphatase 75 U/L 34-104 Alt 100 U/L High 7-52 Ast 46 U/L High 13-39 Egfr Non- 70.9 >60 Egfr 91.1 >60 5 Sodium 139 mmol/L 135-145 Anion Gap 12 mmol/L High 2-11 Urinalysis Profile 08/14/2017 Urine Color Yellow Urine Appearance Cloudy Urine Specific Phillips 1.011 1.010-1.030 Urine pH 7.0 5-9 Urine Urobilinogen Negative Negative Urine Ketones Negative Negative Urine Protein 2+(100 mg/dL) Negative Urine Leukocytes 3+ Negative Urine Blood Negative Negative Urine Nitrite Negative Negative Urine Bilirubin Negative Negative Urine Glucose Negative Negative Urine White Blood Cell 3+(>20/hpf) Absent Urine Red Blood Cell Trace(0-2/hpf) Absent Urine Bacteria Absent Absent Urine Squamous Epithelial Cell Present Absent Urine Culture And 08/14/2017 Urine Culture SEE RESULT BELOW 6 Sensitivities Comp Metabolic Panel 08/10/2017 Sodium 140 mmol/L 139-145 Potassium 4.4 mmol/L 3.5-5.0 Chloride 104 mmol/L 101-111 Co2 Carbon Dioxide 29 mmol/L 22-32 Anion Gap 7 mmol/L 2-11 Glucose 93 mg/dL 70-100 Blood Urea Nitrogen 11 mg/dL 6-24 Creatinine 0.90 mg/dL 0.51-0.95 BUN/Creatinine Ratio 12.2 8-20 Calcium 9.5 mg/dL 8.6-10.3 Total Protein 6.6 g/dL 6.4-8.9 Albumin 4.0 g/dL 3.2-5.2 Globulin 2.6 g/dL 2-4 Albumin/Globulin Ratio 1.5 1-3 Total Bilirubin 0.40 mg/dL 0.2-1.0 Alkaline Phosphatase 80 U/L 34-104 Alt 19 U/L 7-52 Ast 22 U/L 13-39 Egfr Non- 64.5 >60 Egfr 83.0 >60 7 Laboratory test finding 08/10/2017 C Reactive Protein 12.56 mg/L High < 5.00 8 CBC No Diff 08/10/2017 White Blood Count 7.0 10^3/uL 3.5-10.8 Red Blood Count 4.98 10^6/uL 4.00-5.40 Hemoglobin 15.1 g/dL 12.0-16.0 Hematocrit 44 % 35-47 Mean Corpuscular Volume 89 fL 80-97 Mean Corpuscular Hemoglobin 30 pg 27-31 Mean Corpuscular HGB Conc 34 g/dL 31-36 Red Cell Distribution Width 15 % 10.5-15 Platelet Count 235 10^3/uL 150-450 Mean Platelet Volume 7.4 um3 7.4-10.4 Laboratory test 08/10/2017 Erythrocyte Sed Rate 15 mm/Hr 0-30 finding Laboratory test 12/18/2016 Helico Pylori Antigen- Negative Negative 9, 10 finding Stool Laboratory test 11/20/2016 Occult Blood, F I T negative finding CBC Auto Diff 07/10/2016 White Blood Count 6.6 10^3/uL 3.5-10.8 Red Blood Count 4.61 10^6/uL 4.0-5.4 Hemoglobin 13.8 g/dL 12.0-16.0 Hematocrit 42 % 35-47 Mean Corpuscular Volume 91 fL 80-97 Mean Corpuscular Hemoglobin 30 pg 27-31 Mean Corpuscular HGB Conc 33 g/dL 31-36 Red Cell Distribution Width 15 % 10.5-15 Platelet Count 239 10^3/uL 150-450 Mean Platelet Volume 9 um3 7.4-10.4 Abs Neutrophils 3.1 10^3/uL 1.5-7.7 Abs Lymphocytes 2.7 10^3/uL 1.0-4.8 Abs Monocytes 0.6 10^3/uL 0-0.8 Abs Eosinophils 0.1 10^3/uL 0-0.6 Abs Basophils 0.1 10^3/uL 0-0.2 Abs Nucleated RBC 0.01 10^3/uL Granulocyte % 47.7 % 38-83 Lymphocyte % 40.9 % 25-47 Monocyte % 8.5 % 1-9 Eosinophil % 1.8 % 0-6 Basophil % 1.1 % 0-2 Nucleated Red Blood Cells % 0.1 Comp Metabolic Panel 07/10/2016 Sodium 138 mmol/L 133-145 Potassium 4.4 mmol/L 3.5-5.0 Chloride 105 mmol/L 101-111 Co2 Carbon Dioxide 28 mmol/L 22-32 Anion Gap 5 mmol/L 2-11 Glucose 87 mg/dL 70-100 Blood Urea Nitrogen 12 mg/dL 6-24 Creatinine 0.98 mg/dL High 0.51-0.95 BUN/Creatinine Ratio 12.2 8-20 Calcium 9.4 mg/dL 8.6-10.3 Total Protein 6.4 g/dL 6.4-8.9 Albumin 4.2 g/dL 3.2-5.2 Globulin 2.2 g/dL 2-4 Albumin/Globulin Ratio 1.9 1-3 Total Bilirubin 0.40 mg/dL 0.2-1.0 Alkaline Phosphatase 65 U/L 34-104 Alt 8 U/L 7-52 Ast 18 U/L 13-39 Egfr Non- 58.7 >60 Egfr 75.5 >60 11 Laboratory test finding 07/10/2016 TSH (Thyroid Stim Horm) 1.23 mcIU/mL 0.34-5.60 Vitamin B12 463 pg/mL 180-914 12 Vitamin D Total 25(Oh) 23.1 ng/mL Low 30-50 C Reactive Protein 8.04 mg/L High < 5.00 13 Erythrocyte Sed Rate 13 mm/Hr 0-30 Magnesium 2.0 mg/dL 1.9-2.7 Lyme Western Blot 07/10/2016 Lyme Disease IgG Ab WB Negative Negative Lyme Disease IgG Bands Present No bands detecte <SEE NOTE> kDa 14 Lyme Disease IgM Ab WB Negative Negative Lyme Disease IgM Bands Present No bands detecte <SEE NOTE> kDa 15 Lyme Disease Interpretation See Comment 16 Connective Tissue Panel 05/23/2015 Anti-Nuclear Antibody 0.3 U 17 Cyclic Citrullinated Peptide <15.6 U 18 Interpretation See Comment 19 Laboratory test finding 05/23/2015 Creatine Kinase(CK) 48 U/L 10-223 C Reactive Protein 4.62 mg/L < 5.00 20 Erythrocyte Sed Rate 10 mm/Hr 0-30 TSH (Thyroid Stim Horm) 1.00 ?IU/mL 0.34-5.60 Vitamin B12 715 pg/mL 180-914 21 Vitamin D Total 25(Oh) 29.8 ng/mL Low 30-50 Amylase 56 U/L 29-103 Lipase 34 U/L 11.0-82.0 Laboratory test finding 05/23/2015 Magnesium 2.1 mg/dL 1.9-2.7 Comp Metabolic Panel 05/23/2015 Sodium 137 mmol/L 133-145 Potassium 4.3 mmol/L 3.5-5.0 Chloride 103 mmol/L 101-111 Co2 Carbon Dioxide 30 mmol/L 22-32 Anion Gap 4 mmol/L 2-11 Glucose 95 mg/dL 70-100 Blood Urea Nitrogen 11 mg/dL 6-24 Creatinine 0.91 mg/dL 0.51-0.95 BUN/Creatinine Ratio 12.1 8-20 Calcium 9.4 mg/dL 8.6-10.3 Total Protein 6.4 g/dL 6.4-8.9 Albumin 4.3 g/dL 3.2-5.2 Globulin 2.1 g/dL 2-4 Albumin/Globulin Ratio 2.0 1-3 Total Bilirubin 0.70 mg/dL 0.2-1.0 Alkaline Phosphatase 67 U/L 34-104 Alt 7 U/L 7-52 Ast 16 U/L 13-39 Egfr Non- 64.2 >60 Egfr 82.5 >60 22 CBC Auto Diff 05/23/2015 White Blood Count 8.2 10^3/uL 3.5-10.8 Red Blood Count 4.72 10^6/uL 4.0-5.4 Hemoglobin 14.4 g/dL 12.0-16.0 Hematocrit 44 % 35-47 Mean Corpuscular Volume 93 fL 80-97 Mean Corpuscular Hemoglobin 31 pg 27-31 Mean Corpuscular HGB Conc 33 g/dL 31-36 Red Cell Distribution Width 14 % 10.5-15 Platelet Count 236 10^3/uL 150-450 Mean Platelet Volume 8 um3 7.4-10.4 Abs Neutrophils 5.4 10^3/uL 1.5-7.7 Abs Lymphocytes 2.3 10^3/uL 1.0-4.8 Abs Monocytes 0.4 10^3/uL 0-0.8 Abs Eosinophils 0.1 10^3/uL 0-0.6 Abs Basophils 0 10^3/uL 0-0.2 Abs Nucleated RBC 0 10^3/uL Granulocyte % 65.7 % 38-83 Lymphocyte % 27.9 % 25-47 Monocyte % 4.3 % 1-9 Eosinophil % 1.5 % 0-6 Basophil % 0.6 % 0-2 Nucleated Red Blood Cells % 0 Xray 12/14/2013 X-Ray, Pelvis, 1 Or 2 Views No acute process 23 X-Ray, Hip, Complete, Min. Of 2 Views, LT no Acute process 23 Vitamin D, 25 Hydroxy 11/17/2013 25-Hydroxy Vitamin D2 <4.0 ng/mL 24 25-Hydroxy Vitamin D3 24 ng/mL 24 25-Hydroxy Vitamin D Total 24 ng/mL 24, 25 Comp Metabolic Panel 11/17/2013 Sodium 140 mmol/L 133-145 24 Potassium 4.0 mmol/L 3.7-5.6 24 Chloride 106 mmol/L 101-111 24 Co2 Carbon Dioxide 29 mmol/L 22-32 24 Anion Gap 5 mmol/L 2-11 24 Glucose 90 mg/dL 70-100 24 Blood Urea Nitrogen 10 mg/dL 6-24 24 Creatinine 0.82 mg/dL 0.51-0.95 24 BUN/Creatinine Ratio 12.2 8-20 24 Calcium 9.6 mg/dL 8.6-10.3 24 Total Protein 6.9 g/dL 6.4-8.9 24 Albumin 4.5 g/dL 3.2-5.2 24 Globulin 2.4 g/dL 2-4 24 Albumin/Globulin Ratio 1.9 1-3 24 Total Bilirubin 0.60 mg/dL 0.2-1.0 24 Alkaline Phosphatase 69 U/L 34-104 24 Alt 10 U/L 7-52 24 Ast 15 U/L 13-39 24 Egfr Non- 72.6 >60 24 Egfr 93.4 >60 24, 26 CBC Auto Diff 11/17/2013 White Blood Count 8.0 10^3/uL 4.8-10.8 24 Red Blood Count 4.79 10^6/uL 4.0-5.4 24 Hemoglobin 14.8 g/dL 12.0-16.0 24 Hematocrit 44 % 35-47 24 Mean Corpuscular Volume 91 fL 80-97 24 Mean Corpuscular Hemoglobin 31 pg 27-31 24 Mean Corpuscular HGB Conc 34 g/dL 31-36 24 Red Cell Distribution Width 15 % 10.5-15 24 Platelet Count 236 10^3/uL 150-450 24 Mean Platelet Volume 8 um3 7.4-10.4 24 Abs Neutrophils 4.7 10^3/uL 1.5-7.7 24 Abs Lymphocytes 2.6 10^3/uL 1.0-4.8 24 Abs Monocytes 0.4 10^3/uL 0-0.8 24 Abs Eosinophils 0.2 10^3/uL 0-0.6 24 Abs Basophils 0.1 10^3/uL 0-0.2 24 Abs Nucleated RBC 0 10^3/uL 24 Granulocyte % 59.0 % 38-83 24 Lymphocyte % 32.5 % 25-47 24 Monocyte % 4.7 % 1-9 24 Eosinophil % 3.0 % 0-6 24 Basophil % 0.8 % 0-2 24 Nucleated Red Blood Cells % 0 24 Laboratory test 11/17/2013 Hepatitis C Nonreactive Nonreactive 24, 27 finding Antibody TSH (Thyroid Stimulating Horm) 1.25 IU/mL 0.34-5.60 24, 28 Xray 11/02/2013 Dexa Bone Density Study One Or More Sites See result sheet Axial Skeleton 1 Because ethnic data is not always readily available, this report includes an eGFR for both -Americans and non- Americans. The National Kidney Disease Education Program (NKDEP) does not endorse the use of the MDRD equation for patients that are not between the ages of 18 and 70, are , have extremes of body size, muscle mass, or nutritional status, or are non- or non-. According to the National Kidney Foundation, irrespective of diagnosis, the stage of the disease is based on the level of kidney function: Stage Description GFR(mL/min/1.73 m(2)) 1 Kidney damage with normal or decreased GFR 90 2 Kidney damage with mild decrease in GFR 60-89 3 Moderate decrease in GFR 30-59 4 Severe decrease in GFR 15-29 5 Kidney failure <15 (or dialysis) 2 Presumptive Positive Presumptive positive results are unconfirmed. 3 The urine specimen was tested at the listed cutoffs: Drug class test level (ng/mL) Amphetamines 500 Barbiturates 200 Benzodiazepine metabolites 200 Cocaine metabolites 150 Cannabinoids 50 Opiates 300 Pcp 25 Specimen was received without chain of custody. Results should be used for medical purposes only. 4 [facility] Severe Sepsis and Septic Shock Management Bundle Measure requires all lactic acids initially measuring >2.0 mmol/L be repeated. 5 Because ethnic data is not always readily available, this report includes an eGFR for both -Americans and non- Americans. The National Kidney Disease Education Program (NKDEP) does not endorse the use of the MDRD equation for patients that are not between the ages of 18 and 70, are , have extremes of body size, muscle mass, or nutritional status, or are non- or non-. According to the National Kidney Foundation, irrespective of diagnosis, the stage of the disease is based on the level of kidney function: Stage Description GFR(mL/min/1.73 m(2)) 1 Kidney damage with normal or decreased GFR 90 2 Kidney damage with mild decrease in GFR 60-89 3 Moderate decrease in GFR 30-59 4 Severe decrease in GFR 15-29 5 Kidney failure <15 (or dialysis) 6 SEE RESULT BELOW Name: JINA THOMAS : [address]: Aquilino Nye MD Acct: [id number] Unit: [id number] AGE: 56 Location: [place] [address] Re08/14/17 SEX: F Status: ADM IN SPEC: [id number] HAZEL: 08/14/[address] [facility] [address]: Emeterio Caraballo MD REQ: [id number] RECD: 08/14/17 STATUS: HARINDER MORAN DR: Bo Scott DO _ SOURCE: URINE SPDESC: ORDERED: Urine Culture Procedure Result Reported Site Urine Culture Final 08/16/17- 0907 ML Mixed duyen; possible contamination. Suggest resubmission. * ML - Main Lab . END OF REPORT DEPARTMENT OF PATHOLOGY, [address] [place] [address] Casey Aguilar M.D. Director [facility] # [id number] 7 Because ethnic data is not always readily available, this report includes an eGFR for both -Americans and non- Americans. The National Kidney Disease Education Program (NKDEP) does not endorse the use of the MDRD equation for patients that are not between the ages of 18 and 70, are , have extremes of body size, muscle mass, or nutritional status, or are non- or non-. According to the National Kidney Foundation, irrespective of diagnosis, the stage of the disease is based on the level of kidney function: Stage Description GFR(mL/min/1.73 m(2)) 1 Kidney damage with normal or decreased GFR 90 2 Kidney damage with mild decrease in GFR 60-89 3 Moderate decrease in GFR 30-59 4 Severe decrease in GFR 15-29 5 Kidney failure <15 (or dialysis) 8 Acute inflammation: >10.00 9 [id number] Stool 10 Test Performed by: [address] [id number] 11 Because ethnic data is not always readily available, this report includes an eGFR for both -Americans and non- Americans. The National Kidney Disease Education Program (NKDEP) does not endorse the use of the MDRD equation for patients that are not between the ages of 18 and 70, are , have extremes of body size, muscle mass, or nutritional status, or are non- or non-. According to the National Kidney Foundation, irrespective of diagnosis, the stage of the disease is based on the level of kidney function: Stage Description GFR(mL/min/1.73 m(2)) 1 Kidney damage with normal or decreased GFR 90 2 Kidney damage with mild decrease in GFR 60-89 3 Moderate decrease in GFR 30-59 4 Severe decrease in GFR 15-29 5 Kidney failure <15 (or dialysis) 12 Normal Range 180 to 914 Indeterminate Range 145 to 180 Deficient Range <145 13 Acute inflammation: >10.00 14 No bands detected 15 No bands detected 16 Specific serologic response to B. burgdorferi infection is not detected, but cannot rule out early infection during which low or undetectable antibody levels to B. burgdorferi may be present. If clinically indicated, a new serum specimen should be submitted in 7-14 days. ADDITIONAL INFORMATION CDC criteria require >=5 bands for IgG or >=2 bands for IgM for the Immunoblot to be considered positive. Bands (e.g.,p41) may be detected in patients without Lyme disease, and patterns not meeting the CDC criteria should be interpreted with caution. Immunoblot should be ordered only on specimens that are positive or equivocal by a FDA-licensed Lyme disease antibody screening test (e.g., EIA). Test Performed by: [facility] - [address] [address] 17 REFERENCE VALUE <=1.0 (Negative) 18 REFERENCE VALUE <20.0 (Negative) 19 Tests for antibodies to dsDNA and ROSANNE antigens are not performed automatically unless the DANI result is > or= 3.0 U. Studies performed at [facility] indicate that positive DANI results <3.0 U are rarely accompanied by positive second order tests. Test Performed by: [place] [address] Bus Aide: Sid Yee II, M.D., Ph.D. 20 Acute inflammation: >10.00 21 Normal Range 180 to 914 Indeterminate Range 145 to 180 Deficient Range <145 22 Because ethnic data is not always readily available, this report includes an eGFR for both -Americans and non- Americans. The National Kidney Disease Education Program (NKDEP) does not endorse the use of the MDRD equation for patients that are not between the ages of 18 and 70, are , have extremes of body size, muscle mass, or nutritional status, or are non- or non-. According to the National Kidney Foundation, irrespective of diagnosis, the stage of the disease is based on the level of kidney function: Stage Description GFR(mL/min/1.73 m(2)) 1 Kidney damage with normal or decreased GFR 90 2 Kidney damage with mild decrease in GFR 60-89 3 Moderate decrease in GFR 30-59 4 Severe decrease in GFR 15-29 5 Kidney failure <15 (or dialysis) 23 Joint space narrowing mildly bilaterally. Suggestion of femeroacetabular impingement. 24 FASTING 25 -- REFERENCE VALUE -- 25-HYDROXY D TOTAL (D2+D3) Optimum levels in the healthy population are 20-50, patients with bone disease may benefit from higher levels within this range. Test Performed by: [address] [address] Bus Aide: Kwabena Fine III, M.D. 26 Because ethnic data is not always readily available, this report includes an eGFR for both -Americans and non- Americans. The National Kidney Disease Education Program (NKDEP) does not endorse the use of the MDRD equation for patients that are not between the ages of 18 and 70, are , have extremes of body size, muscle mass, or nutritional status, or are non- or non-. According to the National Kidney Foundation, irrespective of diagnosis, the stage of the disease is based on the level of kidney function: Stage Description GFR(mL/min/1.73 m(2)) 1 Kidney damage with normal or decreased GFR 90 2 Kidney damage with mild decrease in GFR 60-89 3 Moderate decrease in GFR 30-59 4 Severe decrease in GFR 15-29 5 Kidney failure <15 (or dialysis) 27 FASTING 28 FASTING Procedures Date CPT Code Description Status Comment 11/09/2016 10267 Omt 7-8 Body Regions Completed 11/05/2016 00898 Inject/Drain Joint/Bursa Completed Major 09/30/2016 71400 Omt 7-8 Body Regions Completed 08/13/2016 93804 X-Ray, Lumbar Spine Complete, Completed Obl 08/13/2016 28573 X-Ray, Lumbar Spine Complete, Completed Obl 08/13/2016 96149 X-Ray, Thoracic Spine, Ap & Completed Lat 08/13/2016 53941 X-Ray, Thoracic Spine, Ap & Completed Lat 07/10/2016 51264 Omt 7-8 Body Regions Completed 04/09/2016 24673 Omt 7-8 Body Regions Completed 04/09/2016 71920 Inject/Drain Joint/Bursa Completed Major 03/01/2016 Colonoscopy Completed 2016:internal hemorrhoid, otherwise normal 01/17/2016 22278 Omt 7-8 Body Regions Completed 12/05/2015 46086 Omt 7-8 Body Regions Completed 08/14/2014 09565 Bronchospasm Evaluation Pre & Completed Post 04/27/2014 71402 Omt 3 To 4 Body Regions Completed Involved 02/14/2014 07631 Osteopathic Manipulative Completed Treament 5-6 Body Regions 01/15/2014 73992 Inject/Drain Joint/Bursa Completed Major 12/14/2013 68828 X-Ray Hip Two Or More Views Completed 12/14/2013 31872 X-Ray Pelvis, Ap Only Completed 11/02/2013 41024 Dexa Bone Density Study One Completed Or More Sites Axial Skeleton 11/02/201342321 Inject/Drain Joint/Bursa Completed Major 02/05/2013 Mammogram Completed Encounters Type Date Location Provider CPT E/M Dx Office Visit 08/30/2017 3:00p Main Office Bo Scott D.O. 67186 M54.5 R51 I63.9 S06.2x9A M48.02 I69.021 J44.9 Office Visit 08/12/2017 9:15a Main Office Bo Scott D.O. 37522 R05 M54.2 R51 M54.81 J01.00 J44.1 Office Visit 01/01/2017 2:45p Main Office Bo Scott D.O. 91560 K25.9 J44.1 Office Visit 11/09/2016 8:30a Main Office Bo Scott D.O. 21041 M54.5 K25.9 M99.00 M99.01 M99.02 M99.04 M54.2 R53.83 M99.05 M99.08 M99.03 Office Visit 11/05/2016 10:30a Main Office Bo Scott D.O. 06005 M19.011 M19.012 K25.9 M79.7 F17.210 M54.2 M54.5 R53.83 Z00.00 Z41.8 Z23 Z71.89 Office Visit 09/30/2016 3:45p Main Office Bo Scott D.O. 30796 M99.03 M99.05 M99.04 M99.02 M99.08 M99.01 M99.00 M79.7 F17.210 M54.2 M54.6 R05 Office Visit 08/13/2016 8:30a Main Office Bo Scott D.O. 32777 M54.5 R53.83 M54.6 M54.5 Q76.49 Office Visit 07/10/2016 9:15a Main Office Bo Scott D.O. 94972 R53.83 S93.602A X50.1xxA M99.04 M99.03 M99.05 M99.02 M99.08 M99.00 M99.01 Office Visit 05/28/2016 3:55p [place] [address] A69.20 Office Visit 04/23/2016 2:55p [place] [address] J20.9 F17.210 Office Visit 04/09/2016 9:00a Main Office Bo Scott D.O. 02251 M99.03 M99.04 M99.02 M99.01 M99.08 M99.05 M99.00 M54.2 M19.011 M25.611 F17.210 Office Visit 01/17/2016 11:30a Main Office Bo Scott D.O. 07418 M99.03 M99.02 M99.04 M99.00 M99.01 M99.08 M99.05 Z23 F17.210 Z63.79 Office Visit 12/05/2015 2:00p Main Office Bo Scott D.O. 51563 M54.5 M99.02 F17.210 M99.01 M99.08 M99.03 M99.04 M99.00 M99.05 Office Visit 11/29/2015 4:45p Main Office Bo Scott D.O. 42832 J01.00 Office Visit 09/23/2015 9:15a Main Office Bo Scott D.O. 64714 G25.81 R53.83 M54.5 E55.9 Z00.01 Office Visit 05/30/2015 8:30a Main Office Bo Scott D.O. 03786 K56.5 R10.13 Office Visit 05/22/2015 3:30p Main Office Bo Scott D.O. 29784 R53.83 F17.210 R10.84 K25.9 Office Visit 04/18/2015 9:45a Main Office Bo Scott D.O. 83906 Z82.49 F17.210 Z13.6 J43.9 Office Visit 12/27/2014 8:30a Main Office Bo Scott D.O. 27849 K62.89 E55.9 R15.9 Office Visit 08/14/2014 9:45a Main Office Bo Scott D.O. 70943 493.00 461.0 466.0 268.9 780.79 724.2 719.45 Office Visit 07/31/2014 1:15p Main Office Bo Scott D.O. 29783 461.0 466.0 493.00 Office Visit 07/17/2014 8:45a Main Office Bo Scott D.O. 03055 268.9 305.1 780.79 724.2 719.45 Office Visit 06/18/2014 2:30p Main Office Bo Scott D.O. 55297 268.9 305.1 780.79 Office Visit 04/27/2014 9:15a Main Office Bo Scott D.O. 68548 724.2 719.45 739.3 739.5 739.4 Office Visit 02/14/2014 2:00p Main Office Bo Scott D.O. 89755 724.2 719.45 726.5 268.9 739.2 739.3 739.4 739.5 739.8 Office Visit 01/15/2014 9:15a Main Office Bo Scott D.O. 03860 564.00 564.1 724.2 719.45 726.5 Office Visit 12/14/2013 9:15a Main Office Bo Scott D.O. 09083 719.45 564.00 Office Visit 11/02/2013 2:00p Main Office Bo Scott D.O. 47272 496 V76.51 V82.81 V70.0 724.2 726.11 V03.82 V06.1 V04.81 733.90 V07.2 627.4 Office Visit 05/16/2013 12:55p Main Office Bo Scott D.O. 55403 274.00 305.1 300.00 296.31 Office Visit 05/02/2013 10:30a Main Office Bo Scott D.O. 47466 466.0 461.0 305.1 381.00 486 Plan of Care Future Appointment(s):10/08/2017 9:45 am - Bo Scott D.O. 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
--- OUTSIDE RECORDS SUMMARY | 2017-09-13 12:06 | XMS REPORT ---
:1960 External Reference #:[id number] Author Organization [facility] Address [address] [place] [address] [place] [address] Phone [phone] Care Team Providers Name Role Phone Bo Scott DO Primary Care Physician Unavailable Payers Type Date Identification Numbers Payment Provider Subscriber Medicare Primary Effective: Policy Number: Medicare Jina Thomas 2007 [id number] PayID: [id number] [address] [place] [address] [facility] Part B Policy Number: [id number] Medicaid Jina Thomas PayID: [id number] [address] [place] [address] Problems Date Description Provider Status Onset: 05/13/2010 Tobacco user Mary Ann Ibarra M.D., [facility] Active Onset: 05/13/2010 Myalgia & Myositis Unspec Feroz Christie M.D. Active Onset: 03/26/2015 Atrial fibrillation Orion Klein M.D., [facility] Active Onset: 03/26/2015 Sinus node dysfunction Orion Klein M.D., [facility], [facility] Active Onset: 03/26/2015 Dyspnea Orion Klein M.D., [facility], [facility] Active Onset: 03/26/2015 Palpitations Orion Klein M.D., [facility], [facility] Active Family History Date Family Member(s) Problem(s) Comments General Stomach Cancer brother General Hypertension brothers General Aneurysm Brother Father 78 Father Peripheral Vascular Disease (PVD) Father Chronic Obstructive Pulmonary Disease (COPD) Mother 75 Mother Cancer, Throat Mother Chronic Obstructive Pulmonary Disease (COPD) Siblings 4 brothers: HTN, CAD Social History Type Date Description Comments Marital Status Lives With Alone Occupation Locker Attendant Occupation Disabled Cigarette Use Patient is a [...] Form Strength Qnty SIG Indications Ordering Provider Fluticasone 12/16 Active Suspension 50mcg/Act 1unit 1 spray Mary Ann Propionate /2010 s each Stacey, nostril in M.D., am FACP Combivent 09/30 Active 2unit 2 puffs Mary Ann Inhaler /2009 s four times Stacey, daily as M.D., needed FACP Ventolin HFA Active Aerosol 108(90Base) 1unit 2 puffs po Unknown / mcg/ac s qid prn Spiriva Active Capsules 18mcg 1 unit Unknown Handihaler 0000 inhalation daily prn Baclofen Active Tablets 10mg 1 tab po Unknown / qHS prn Enzyme Digest Active Capsules 1 prior to Unknown each meal Excedrin Active Tablets [id number] 1 tablet Unknown Migraine by mouth three times a day, as needed persitent headache Nicorette Active Lozenges 4mg as needed Unknown /0000 - usually 3 per day Citalopram 09/20 Hx Tablets 10mg 30tab 1 po qd 311 Mary Ann Hydrobromide /2011 s Stacey, - M.D., 10/18 FACP Cheratussin ac 06/03 Hx Syrup 100-10mg/5ML 200ml 1-2 tsp Mary Ann q.i.d. as Stacey, - needed for M.D., 03/25 cough FACP Omeprazole 12/[address] 20mg 90cap 1 po qd s Isabelle Ibarra M.D., 09/20 FAC Tobradex 12/16 Hx Ointment 0.3-0.1% AT hs Isabelle Ibarra M.D., 10/18 FAC Biaxin 05/30 Hx Tablets 500mg 20tab 1 by mouth s twice Stacey, - daily for M.D., 11/14 10 days Z Pack 05/15 Hx Tablets 250mg 5tabs as directed. Isabelle Ibarra M.D., 11/14 FAC Chantix 03/31 Hx Tablets 1mg 56tab Take as s Directed Isabelle Ibarra M.D., 07/13 Chantix 01/22 Hx Tablets 0.5mg X 11 & 1tabs use as 1 mg X directed Isabelle Ibarra M.D., 03/31 Physical 12/30 Hx Cervicalgia Mary Ann Isabelle Ibarra M.D., 12/30 FAC Neck Brace 12/30 Hx Cervicalgia Isabelle Ibarra M.D., 01/22 Chantix 09/30 Hx Start Pack 1unit use as s directed Isabelle Ibarra M.D., 01/22 Flexeril 09/30 Hx Tablets 5mg 90tab 1 at s bedtime as Isabelle Ibarra M.D., 03/25 Levsin Hx Tablets 0.125mg 120ta take 1 Mary Ann bs four times Stacey, - daily as MTanyaDTanya, 12/16 needed FAC Ciprofloxacin 00 Hx Tablets 500mg 20tab 1 po bid Unknown s - 07/13 Levaquin 00 Hx Tablets 750mg 7tabs once daily Unknown /0000 - 03/25 Immunizations CPT Code Status Date Vaccine Lot # [id number] Given 12/18/2011 Afluria Vaccine 91409 Given 12/20/2007 Influenza Virus 3Yrs & Over Vital Signs Date Vital Result Comment 04/18/2015 Height 64 inches 5'4" Weight 139.00 [...] than 189 MG/DL 5 RUN DATE: 05/30/11 [facility] NMI LIVE PAGE 1 RUN TIME: 1249 Specimen Inquiry RUN USER: INTERFACE Name: JINA THOMAS Status: SERJIO CLI Re05/28/11 Age/Sex: 50/F Unit#: [id number] Location: [facility] : 59 SPEC #: [id number] HAZEL: 05/28/11 STATUS: HARINDER REQ #: [id number] RECD: 05/28/[address]: Arik HARRIS,Mauricio Canela SOURCE: SPUTUM ENTR: 05/28/[address]: Stacey HARRIS,Mary Ann SPDESC: ORDERED: SPUTUM CS/SMEAR QUERIES: GRAM STAIN INCLUDED. Y ACT WKST: B 05/30/11 #1 Procedure Result Verified Site > SPUTUM SMEAR Final 05/29/11- 0756 ML POLYS MANY EPITHELIAL CELLS FEW SMEAR: FEW GRAM POSITIVE COCCI MOD GRAM NEGATIVE COCCOBACILLI FEW GRAM POSITIVE BACILLI > SPUTUM CULTURE SENSITIV Final 05/30/11- 1249 ML NORMAL RESPIRATORY NAE ML - [facility] Permit #[id number] [address] [place] [address] DEPARTMENT OF PATHOLOGY, [address] [place] [id number] [facility] Permit #[id number] Nicky Long M.D. Rover Tender 6 RUN DATE: 05/30/11 [facility] NMI LIVE PAGE 1 RUN TIME: 1249 Specimen Inquiry RUN USER: INTERFACE Name: JINA THOMAS Status: DEP CLI Re05/28/11 Age/Sex: 50/F Unit#: [id number] Location: [facility] : 58 SPEC #: [id number] HAZEL: 05/28/11-1444 STATUS: HARINDER REQ #: [id number] RECD: 05/28/11-[address] [facility] [address]: Mauricio Elise MD SOURCE: THROAT ENTR: 05/28/11-[address]: [facility] ORDERED: THROAT CULTURE ACT WKST: B 05/30/11 #1 Procedure Result Verified Site > THROAT CULTURE FULL Final 05/30/11- 1249 ML NORMAL THROAT NAE FULL THROAT CULTURES ARE CLINICALLY INDICATED TO DETECT THE PRESENCE OF GROUP A STREP, ARCANOBACTERIUM AND YEAST. - [facility] Permit #[id number] [address] [place] [address] DEPARTMENT OF PATHOLOGY, [address] [place] [address] [facility] Permit #[id number] Nicky Long M.D. Rover Tender Procedures Date CPT Code Description Status Comment 04/16/2015 58823 Treadmill Interp/Report Only Completed 04/16/2015 26591 Stress Test Supervsn W/Out I/R Completed 03/26/2015 12062 EKG Tracing & Interpretation Completed 11/23/2011 Mammogram Completed 12/16/2010 74650 EKG Tracing & Interpretation Completed 05/19/2010 Diabetic Retinal Eye Exam Completed Document: 05/19/10 - Consult OphthalmologyElbert 01/28/2010 Mammogram Completed 01/09/2008 Colonoscopy Completed 12/29/2007 13926 Holter Monitor Review (24 hr)dr Completed review & interp only 12/20/2007 03228 EKG Tracing & Interpretation Completed 12/20/2007 71794 EKG Tracing & Interpretation Completed Encounters Type Date Location Provider CPT E/M Dx Office Visit 03/26/2015 [facility] Orion Klein M.D., 99064 R00.2 3:00p [employer] Officer AT [facility], FSCAI R06.02 I49.5 I48.0 Office Visit 10/19/2011 11:20a [facility] - Mary Ann Ibarra M.D., 00412 [address] Pearson FACP 305.1 466.0 Office Visit 09/21/2011 10:00a [facility] Medicine Mary Ann Ibarra M.D., 04024 V62.82 - Pearson FACP 311 305.1 338.4 Office Visit 07/14/2011 3:00p [facility] Chito Ivan, 23918 338.4 Of [facility] Saunders Office Visit 12/16/2010 3:00p DO Not Use Mary Ann Ibarra M.D., 54238 V72.84 [employer] FACP 620.2 496 305.1 Office Visit 05/13/2010 1:30p DO Not Use [employer] Mary Ann Ibarra M.D., 93912 462 FACP 305.1 Office Visit 01/22/2010 3:00p DO Not Use [employer] Mary Ann Ibarra 22779 611.71 MLakeshia, FACP Office Visit 12/30/2009 10:15a DO Not Use [employer] Mary Ann Ibarra 16093 723.1 M.DTanya, FACP 728.85 Office Visit 09/30/2009 12:00p DO Not Use [employer] Mary Ann Ibarra 02991 786.2 M.D., FACP 496 Office Visit 09/26/2009 8:45a [facility] Boaz Scales, 55096 728.89 C.M.A. MLakeshia 726.5 Office Visit 05/21/2009 9:00a DO Not Use [employer] Mary Annfely Ibarra, 16443 789.09 M.D., FACP 578.1 Office Visit 05/15/2009 11:15a DO Not Use [employer] Mary Ann Stacey, 61106 723.1 M.D., FACP Office Visit 11/21/2008 1:00p [facility] Feroz Christie, 15275 729.1 [employer] Officer M.D. Office Visit 10/17/2008 10:15a DO Not Use [employer] Mary Ann Stacey, 44741 723.4 M.D., FACP Office Visit 06/27/2008 3:45p DO Not Use [employer] Mary Annfely Ibarra, 00163 727.43 M.D., FACP Office Visit 03/29/2008 3:00p DO Not Use [employer] Mary Ann Stacey, 24246 133.0 M.D., FACP Office Visit 03/27/2008 11:00a DO Not Use [employer] Mary Annfely Ibarra, 83571 461.9 M.D., FACP 491.21 Office Visit 03/05/2008 11:00a DO Not Use Doretha Grajeda, 88131 461.9 [employer] N.P. Office Visit 12/20/2007 2:15p DO Not Use Doretha Nicci, 75709 786.50 [employer] N.P. 785.1 V04.81 Office Visit 12/15/2007 9:30a DO Not Use [employer] Doretha Grajeda, 73237 692.9 N.P. 530.81 564.1 Office Visit 12/08/2007 2:45p DO Not Use Mary Ann Ibarra M.D., 57085 789.07 [employer] FACP Office Visit 12/07/2007 1:30p DO Not Use Doretha Grajeda, 37668 V70.0 [facility] N.Brandy Office Visit 09/29/2007 9:00a [facility] Feroz MTanya Christie, 24495 729.1 Of [facility] Saunders Plan of Care 03/26/2015 - Orion Klein M.D., [facility], KDJTNH53.2 PalpitationsComments:Your palpitations have become somewhat more frequent and symptomaticFollow up:after testingRecommendations:We will evaluate these with an exercise stress test.R06.02 Shortness of breathComments:You notice shortness of breath and mild chest tightness with walking up stairsRecommendations:We need to evaluate this symptom further. See above.I49.5 Sick sinus syndromeComments:You have a resting slow pulse that may suggest abnormal function of the pacesetter of the heart.I48.0 Paroxysmal atrial fibrillationComments:The EKG you had at [facility] pre-op anesthesia was not atrial fibrillation it was normal but mildly slow.
--- NOTE | 2017-09-13 15:25 | CONS ---
CC: Neurologist in [place] Dr. Irma Nicholson; Dr. Scott.* NEUROLOGY CONSULTATION: DATE OF CONSULT: 09/13/17. LOCATION: The patient is in the emergency department. REQUESTING PROVIDER: Dr. Caraballo. NEUROLOGIST: Dr. Irma Nicholson. PRIMARY CARE PHYSICIAN: Dr. Scott. 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 HISTORY OF PRESENT ILLNESS: Luiz Cristina is a 57-year-old woman who is a smoker and was in our hospital most recently from 08/17/17 through 08/20/17 with subarachnoid hemorrhage and recurrent headaches as well as transient neurologic symptoms. There was concern on our part for reversible cerebral vasoconstriction syndrome and she was transferred to [place] on the 08/27/17 for further care. She has some discharge paperwork with her today, which indicates that she was discharged from [facility] on the . She was diagnosed with RCVS in [place] and was placed on verapamil 40 mg 3 times daily. Her paperwork further states that she was found to have bilateral parietal strokes in the course of her stay there. Since she was discharged, she says that she has continued to have daily headaches, though she did not have a headache for the past couple of days until the current episode, which brings her into the emergency department today. She has been taking Tylenol 3 times a day along with her verapamil because she continues to experience these headaches. She states that she was woken up from sleep around 12:45 a.m. today with bitemporal headache and this was associated with pain in her left groin as well as "hardening" of her left calf and a sensation of numbness in her left heel. The leg would hurt more when she would move it and the pain was concentrated primarily in her groin area. She is not able to say whether the hardening of her calf was related to a muscle spasm or not. She was worried about the possibility of a blood clot when she felt her calf hard like that, but it has since gone back to normal. She is not sure how long these symptoms lasted because she got up and though she tried to stay awake , she did end up falling back to sleep and when she woke up several hours later , her symptoms were gone with the exception of the headache. She presented to Dr. Pompa' office as an outpatient for a scheduled visit and when she told him of these symptoms, he advised that she come to the emergency department and have a Neurology evaluation. Currently, she states that her headache is on the more mild side and in the right temporal region only. It is similar to headaches that she has been experiencing since her discharge from [facility]. She no longer has any focal symptoms in her foot or her calf , though she says her left groin is still somewhat tender. Of note, she had a catheter angiogram, but states that they entered through her right and not her left groin. In general, she feels she has been improving since her discharge from [place]. To summarize her hospital course here with us, in July she was found to have right frontal and left parietal subarachnoid hemorrhage, which appeared consistent with a coup-contrecoup pattern of injury, but the timing of head injury could not really account for the presence of the subarachnoid hemorrhage because she had had a previous clear CAT scan after hitting her head. She was having intermittent headaches, which sometimes were associated with visual field loss off to the right. Multiple noninvasive CT angios and MR angios did not show any evidence for RCVS. She had an MRI scan of the brain as well here, which did not show any evidence of stroke that was on the 08/19/17. Also of note, she describes having visual episodes on a regular basis, which often occur when she is reading, but no exclusively. She thinks this happens only in her right eye and describes it as though a blank page is turning in front of her eye and then turned back and her vision restores. This entire episode last just a few seconds. One of these happened this morning and these have been occurring since her discharge from the hospital on the 08/29/17. She went to the eye doctor for evaluation who said that her eyes were healthy and recommended that she use readers. PAST MEDICAL HISTORY: Arthritis, degenerative disk disease, both lumbar and cervical stenosis, history of tension headaches, chronic pain, and COPD. PAST SURGICAL HISTORY: Cholecystectomy and hysterectomy. MEDICATIONS: Home medications: 1. Baclofen 10 mg p.r.n. 2. Verapamil 40 mg t.i.d. 3. Tylenol 650 three times daily. 4. She also has Tylenol with Codeine available for severe headaches. 5. She is also taking magnesium 400 mg daily. ALLERGIES: VICODIN causes rash, PENICILLINS causes rash, PREDNISONE causes GI upset, CHANTIX causes rash, ADHESIVE TAPE and PSEUDOEPHEDRINE is thought to have caused or contributed to the reversible cerebral vasoconstriction syndrome. FAMILY HISTORY: Aortic aneurysms in 2 brother as well as a possible history of stroke in a grandparent. SOCIAL HISTORY: She is back to smoking half a pack per day, though had quit during the time when she was in the hospital. She drinks alcohol rarely. She is on disability. She lives alone with her dog. REVIEW OF SYSTEMS: She denies any recent head or neck trauma. She complains of sinus congestion. She has some muscle soreness in her left biceps, which she has just noticed today. Otherwise as her per the HPI. PHYSICAL EXAM: Vital Signs: Temperature 99.5, blood pressure 101/67, heart rate 73, and oxygen saturation 97% on room air. On general exam, she is in no acute distress. She is a pleasant woman. Heart is in a regular rate and rhythm with no murmurs, rubs, or gallops. Lungs are clear to auscultation bilaterally. Her left biceps was mildly tenderness to palpation. On neurologic exam, she is fully awake, alert, and oriented, though initially stated it was 2008, but then self corrected to 2018. Speech is fluent without dysarthria or aphagia. Pupils are equal, round, and reactive from 4 to 2 mm bilaterally. Versions are full without nystagmus. Brower are full to confrontation with no extinction to double simultaneous stimulation. Facial sensation and muscular are full and symmetric. Hearing is intact to voice. The palate elevates symmetrically and the tongue is midline. On motor examination, she has normal bulk and tone in the upper and lower extremities with no pronator drift. Strength is full proximally and distally in the upper and lower extremities. There are no abnormal movements. Sensation is intact to temperature and light touch in the upper and lower extremities. Reflexes are 2+ throughout and it is difficult to assess her toes secondary to her being ticklish. Cnnezr-td-bcql and xspx-il-nnwf are intact without ataxia. I did not ambulate her at this time. DIAGNOSTIC STUDIES/LAB DATA: Her CBC shows a white count of 6.3, hemoglobin 13 , hematocrit 39, and platelet count of 244. Chemistry panel shows sodium 141, normal kidney function, glucose of 116. I reviewed her noncontrast head CT, which was initially interpreted to show no evidence of hemorrhage and no focal parenchymal abnormalities, but on my review , I noted a round hypodensity at the left vertex, which appears to be in the frontal region. I discussed with the radiologist who agreed, but stated that it could be secondary to volume averaging. I also reviewed her MRI scan from 08/19/17, which showed no evidence for ischemic injury. IMPRESSION: Luiz Cristina is a 57-year-old woman with subarachnoid hemorrhage in July, subsequently diagnosed with reversible cerebral vasoconstriction syndrome who apparently had ryan found on MR imaging in [place] in both parietal lobes who comes in with headache and transient left foot numbness involving the heel as well as pain in the left leg and possibly muscle spasm in her left calf. Though not her presenting complaints, she also reports recurrent episodes of brief apparent vision loss, which could be monocular versus the right visual field. She did have subarachnoid hemorrhage in her left parietal lobe previously and when she was in our hospital was reporting episodes of right visual field loss. She had long-term EEG in [place], which did not show any evidence of seizures. She has a new finding on her CT scan of the brain today, which could be consistent with the strokes that were found in [place], but we need to make sure of this given her history as well as the current symptoms, though I do note that the lesion is not in an area which could cause these symptoms in the left foot and therefore it would be unrelated to her symptoms overnight. We are going to obtain MRI scan of the brain without contrast to evaluate for any acute or subacute strokes and I potentially will be speaking with [facility] to determine whether they feel any other testing is necessary at this time or if the patient could safely be discharged home as she currently only has a headache, which she has been experiencing regularly since her discharge from the hospital anyway. Thank you for this consultation. [id number]/[facility] #: [id number] YOKASTA
--- NOTE | 2017-09-13 16:01 | RAD ---
Indication: Headaches, stroke and subarachnoid hemorrhage. Sagittal and axial T1, axial T2, FLAIR, diffusion and susceptibility weighted images of the brain were obtained. Comparison is made with the previous exam dated August 19, 2017. Ventricular structures are midline. No midline shift is noted. The extra-axial spaces are unremarkable. There is no evidence of intracranial mass or hemorrhage. The FLAIR images demonstrates a small area of signal abnormality in the medial left parietal lobe. There is also some signal abnormality on the FLAIR images the right posterior parietal lobe laterally. No significant restriction of diffusion is noted. This may represent areas of old infarct at these appear hypodense on prior CT scan. No midline shift is noted. No mass effect is noted. The paranasal sinuses and orbits are otherwise unremarkable. No midline shift is noted. The parotid glands are unremarkable. IMPRESSION: No definite intracranial mass is noted. Areas of signal abnormality in the posterior medial left parietal lobe and posterior lateral right parietal lobe may represent small areas of prior infarct. The appear to be corresponding to the hypodense areas on the CT scan. No definite restriction of diffusion to suggest acute infarct is noted.
[2017-09-13 17:14] VITALS: BP 110/73
== END 2017-09-13 17:14 | disposition home or self-care (01) ==
LOC: ED 11:20
DX: G44.209 Tension-type headache, unspecified, not intractable (principal); I67.841 Reversible cerebrovascular vasoconstriction syndrome; F17.210 Nicotine dependence, cigarettes, uncomplicated; Z86.73 Personal history of transient ischemic attack (TIA), and cerebral infarction without residual deficits; Z87.820 Personal history of traumatic brain injury; Z88.6 Allergy status to analgesic agent; Z88.0 Allergy status to penicillin
CPT/HCPCS: 36415; 70450; 70551; 80048; 85025; 96360; 99283

== ENCOUNTER 2018-07-24 16:50 | Emergency (ER) | payer MEDICARE, MEDICAID ==
--- OUTSIDE RECORDS SUMMARY | 2018-07-24 17:41 | XMS REPORT | Continuity of Care Document ---
:1960 External Reference #:[id number] Author Name Bo Scott D.O. Address [address] [place] [id number] Care Team Providers Name Role Phone HCP/LW on file Primary Care Physician Unavailable Payers Date Identification Numbers Payment Provider Subscriber Effective: Policy Number: [id number] [facility] 2007 PayID: [id number] [address] [place] [address] Policy Number: [id number] Medicaid Jina Thomas PayID: [id number] [address] [place] [address] Advance Directives Description No Information Available Problems Active Problems Provider Date Acute bronchitis Bo Scott D.O. Onset: 05/02/2013 Acute maxillary sinusitis Bo Scott D.O. Onset: 05/02/2013 Tobacco user Bo Scott D.O. Onset: 05/02/2013 Chronic obstructive lung disease Bo Scott D.O. Onset: 11/02/2013 Low back pain Bo Scott D.O. Onset: 11/02/2013 Calcific tendinitis of shoulder Bo Scott D.O. Onset: 11/02/2013 Arthralgia of the pelvic region and thigh Bo Scott D.O. Onset: 2013 Constipation Bo Scott D.O. Onset: 12/14/2013 Irritable bowel syndrome Bo Scott D.O. Onset: 01/15/2014 Vitamin D deficiency Bo Scott D.O. Onset: 02/14/2014 Malaise and fatigue Bo Scott D.O. Onset: 06/18/2014 Generalized abdominal pain Bo Scott D.O. Onset: 05/22/2015 Gastric ulcer without hemorrhage, without Bo Scott D.O. Onset: 2015 perforation AND without obstruction Intestinal adhesions with obstruction Bo Scott D.O. Onset: 05/30/2015 Epigastric pain Bo Scott D.O. Onset: 05/30/2015 Neck pain Bo Scott D.O. 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 Recreational Drug Use Denies Drug Use Exercise Type/Frequency Exercises sporadically Sun Exposure Does not use sunscreen Seat Belt/Car Seat Seat Belt Use - Yes Currently Active Patient is currently sexually active Allergies, Adverse Reactions, Alerts Active Allergies Reaction Severity Comments Date Penicillins 05/02/2013 Vicodin 05/02/2013 Adhesives on tape 05/02/2013 Chantix Urticaria, Eyes bugging out Moderate 05/07/2014 Medications Active Medications SIG Qnty Indications Ordering Provider Date Ibuprofen 1 cap by mouth 30tabs M65.311 Bo Scott, 04/04/2018 800mg Tablets three times a D.O. day Multi For Her 50+ 1 by mouth every Unknown 04/03/2018 day Tablets Verapamil HCL 1/2 tab po three Unknown 01/31/2018 40mg times daily Tablets Tylenol Extra 1 by mouth prn 360tabs Bo Scott, 08/30/2017 Strength D.O. 500mg Tablets Baclofen 1 by mouth three 90tabs M54.5 Bo Scott, 08/30/2017 20mg Tablets times a day D.O. Magox 400 2-4 tablets 360tabs R53.83 Bo Scott, 08/29/2017 400(241.3mg) every night at D.O. mg Tablets bedtime History Medications Multi For Her 50+ one po daily Bo Scott, 04/03/2018 - D.O. 04/03/2018 Tablets Verapamil HCL one tab po three Unknown 01/31/2018 - 40mg times daily 01/31/2018 Tablets Clobetasol apply topically Unknown 08/29/2017 - Propionate two times a day 04/03/2018 0.05% prn rash Ointment Baclofen take 1 tablet by M54.5 Bo Scott, 08/29/2017 - 10mg Tablets mouth at night for D.O. 08/30/2017 muscle spasms Acetaminophen-Codein one tab po every Unknown 08/29/2017 - e #3 4-6 hrs prn 07/06/2018 300-30mg Tablets Ondansetron HCL 1 by mouth two 30tabs Bo Scott, 08/13/2017 - 4mg times a day as D.O. 08/29/2017 Tablets needed for nausea Meloxicam 1 by mouth every 90tabs Bo Scott, 08/13/2017 - 7.5mg day D.O. 08/29/2017 Tablets Doxycycline Hyclate 1 tablet by mouth 42tabs Bo Scott, 08/12/2017 - twice daily x 21 D.O. 08/29/2017 100mg Tablets days Butalbital/Acetamino take 1 capsule by 14caps Bo Scott, 08/12/2017 - phen/Caffeine mouth every 4 D.O. 08/13/2017 hours as needed 50-300-40mg Capsules for headache max 3 a day Kelp W/Iodine Unknown 08/11/2017 - 08/29/2017 Probiotic 1 by mouth every Unknown 08/11/2017 - Capsules day 08/29/2017 Multivitamin Adult 1 by mouth every Unknown 08/11/2017 - day 08/29/2017 Tablets Clindamycin HCL 1 capsule by mouth 28caps Unknown 08/10/2017 - 300mg four times a day x 08/12/2017 Capsules 7 days Bupropion HCL ER 1 tablet by mouth 60tabs R53.83 Bo Scott, 2017 - (Smoking Det) 2 times per day D.O. 08/11/2017 150mg Tablets ER 12HR Ranitidine HCL 1 by mouth twice a 180caps K25.9 Bo Scott, 2016 - 300mg day D.O. 08/11/2017 Capsules Azithromycin take 2 tablets by 6tabs I67.841 Bo Scott, 01/01/2017 - 250mg mouth one time on D.O. 01/06/2017 Tablets the first day then take 1 tablet by mouth daily for 4 days Symbicort inhale 2 puffs by 30.6gm I67.841 Bo Scott, 01/01/2017 - mouth twice a day D.O. 08/29/2017 160-4.5mcg/Act gargle after use Aerosol Baclofen 1 by mouth three 90tabs M54.5 Bo Scott, 11/09/2016 - 20mg Tablets times a day D.O. 08/29/2017 Doxycycline Hyclate 1 twice a day for 20caps R05 Bo Scott, 2016 - 10 days D.O. 10/10/2016 100mg Capsules Doxycycline 1 tab by mouth 28tabs A69.20 Sue Romo, 05/28/2016 - Monohydrate twice a day x14 PA 07/09/2016 100mg days Tablets Azithromycin 2 tabs by mouth 6tabs J20.9 Sue Romo, 04/23/2016 - 250mg daily x1 day then PA 04/30/2016 Tablets 1 tab by mouth daily x4 days Bupropion HCL ER 1 tablet by mouth 60tabs R53.83 Bo Scott, 2016 - (Smoking Det) 2 times per day D.O. 09/29/2016 150mg for smoking Tablets ER 12HR cessation Geritol Complete 1 po daily Unknown 04/08/2016 - 08/11/2017 Tablets Nicorette dissolve 1 lozenge 168units Bo Scott, 01/17/2016 - 4mg by mouth 20 times D.O. 09/29/2016 Lozenges per day as needed for smoking cessation Nicotine Step 1 1 patch daily 28units Sonia Bo, 12/18/2015 - remove old patch D.O. 07/10/2016 21mg/24HR Patches before placing new 24HR patch. Bupropion HCL ER start 1 tablet 60tabs R53.83 Sonia Bo, 12/05/2015 - (Smoking Det) daily for 3 days D.O. 04/08/2016 150mg take 1 tablet by Tablets ER 12HR mouth 2 times per day for smoking cessation Afrin Sinus inhale 2 sprays 15ml J01.00 Bo Scott, 11/29/2015 - 0.05% into nostril 2 D.O. 12/02/2015 Solution times per day every 10 to 12 hours as needed for stuffy nose for 3 days only! Azithromycin take 1 tablet by 3tabs J01.00 Bo Scott, 11/29/2015 - 500mg mouth daily for 3 D.O. 12/02/2015 Tablets days for infection Ropinirole HCL 1 by mouth 2 hours 90tabs G25.81 Bo Scott, 2015 - 0.25mg before symptoms D.O. 04/08/2016 Tablets usually occur Lidocaine apply 12 hours on 90units M54.5 Bo Scott, 09/23/2015 - 5% Patches 12 hours off as D.O. 12/31/2016 needed to area of pain. Antihistamine as directed Unknown 09/22/2015 - Generic Brand 08/11/2017 Nicorette Dissolve 1 lozenge 168units R53.83 Bo Scott, 04/18/2015 - 4mg by mouth 20 times D.O. 05/17/2015 Lozenges per day as needed for smoking cessation Digestive Enzymes 1 po daily before Unknown 04/17/2015 - meals 11/28/2015 Omeprazole 1 by mouth every 90caps Bo Scott, 02/04/2015 - 40mg day D.O. 02/11/[address] Azelastine HCL instill one spray 90ml J01.00 Bo Scott, 01/22/2015 - (Nasal) at night and every D.O. 08/29/2017 0.15% 12 hours as needed Solution for nasal drainage Vitamin D3 take 2 capsules by 180caps E55.9 Bo Scott, 12/27/2014 - 5000Unit mouth every day or D.O. 08/29/2017 Capsules 14 tablets once a week Vitamin B Complex 1 by mouth once Unknown 12/26/2014 - daily 08/11/2017 Tablets Iron 1 by mouth every Unknown 12/26/2014 - 325(65Fe) mg day. take with a 09/29/2016 Tablets bit of oj to enhance absorption. Spiriva Handihaler inhale the 30caps J45.30 YuniBo dunlap, 08/14/2014 - contents of 1 D.O. 09/29/2016 18mcg Capsules capsule daily Nicotine Step 1 1 patch daily 30units 305.1 Yunigermán Bo, 08/14/2014 - remove old patch D.O. 12/27/2014 21mg/24HR Patches before placing new 24HR patch. Singulair 1 tablet by mouth 30tabs 493.00 Bo Scott, 07/31/2014 - 10mg once daily for D.O. 08/14/2014 Tablets allergies Azelastine HCL 1 spray at night 30ml 461.0 Yunigermán Bo, 07/31/2014 - 0.15% and every 12 hours D.O. 01/22/2015 Solution as needed for nasal drainage Vitamin D3 take one capsule 90caps 268.9 OrquideaBo rodriguez, 07/17/2014 - 5000Unit by mouth every day D.O. 12/27/2014 Capsules or 7 tablets once a week Magox 400 2 tablets every 90tabs R53.83 Bo Scott, 07/17/2014 - night at bedtime D.O. 08/30/2017 400(241.3mg) mg as directed Tablets Magnesium 2 PO AT hs prn Unknown 02/13/2014 - 250mg 07/16/2014 Tablets Hyoscyamine Sulfate 1 tablet tid prn 90tabs 564.1 Bo Scott, 2013 - D.O. 07/16/2014 0.125mg Tablets Oxycodone-Acetaminop 1-2 every 4 hours 60tabs 719.45 Bo Scott, 12/14 - hen as needed severe D.O. 07/17/2014 5-325mg Tablets pain code d Magnesium Citrate 1 by mouth every 90tabs 564.00 Bo Scott, 2013 - day increase by 1 D.O. 02/13/2014 100mg Tablets tablet every three nights until bowels are regular. Hair Skin And Nails daily OTC Unknown 12/13/2013 - Vitamin 07/16/2014 Multivitamin 1 by mouth every OTC Unknown 12/13/2013 - day 07/16/2014 Vitamin C daily prn OTC Unknown 12/13/2013 - 08/29/2017 Calcium + D3 1 by mouth every OTC Unknown 12/13/2013 - day 07/16/2014 [id number] Tablets Fish Oil 1 by mouth every OTC Unknown 12/13/2013 - 1000mg day 07/16/2014 Capsules Tramadol HCL 1-2 by mouth every 60tabs 724.2 Bo Scott, 11/02/2013 - 50mg 6 hours as needed D.O. 12/14/2013 Tablets for pain Baclofen Take One Tablet By 90tabs M54.5 Bo Scott, 11/02/2013 - 10mg Tablets Mouth AT Bedtime D.O. 11/09/2016 With Food Or Milk Colcrys take 2 immediately 30tabs 274.00 Bo Scott, 05/16/2013 - 0.6mg Tablets then 1 1 hour D.O. 10/31/2013 later. then next day take 1 twice a day. Bupropion HCL XL take 1 tablet by 90tabs 305.1 Bo Scott, 05/16/2013 - mouth daily in the D.O. 10/31/2013 150mg Tablets ER morning 24HR Chantix days 1-3: 1 qd; QS 305.1 Bo Scott, 05/16/2013 - 0.5mg Tablets day 4-7: bid #1 D.O. 10/31/2013 starter pack refill # 1 continuing pack start 2 weeks after wellbutrin Fluticasone 2 sprays into each 48gm J01.00 Bo Scott, 05/02/2013 - Propionate nostril every day D.O. 08/29/2017 50mcg/Act for nasal Suspension congestion. jasiel allergies. rinse mouth post Levofloxacin 1 cap by mouth 10tabs 466.0 Bo Scott, 05/02/2013 - 500mg every day D.O. 05/16/2013 Tablets Mucinex DM Maximum Bo Scott, 04/19/2013 - Strength D.O. 10/31/2013 60-1200mg Tablets ER 12HR Stool Softener 1-2 tabs po daily OTC Bo Scott, 04/10/2013 - D.O. 10/31/2013 Capsules Vitamin D3 1 by mouth daily 90caps 268.9 Bo Scott, - 5000Unit D.O. 07/16/2014 Capsules Levofloxacin Unknown - 750mg 12/27/2014 Tablets Proair HFA Inhale 4 puffs by 25.5gm J45.30 Bo Scott, - mouth every 4 D.O. 08/11/2017 108(90Base) mcg/Act hours for 2 days Aerosol as needed for worsening of asthma Flovent HFA 2 puffs twice a 36gm J45.20 Bo Scott, - day rinse mouth D.O. 12/31/2016 220mcg/Act Aerosol after use Nicorette Unknown - 2mg 04/08/2016 Lozenges Medications Administered in Office Medication SIG Qnty Indications Ordering Provider Date injection, kenalog, 10 mg Bo Scott, D.O. 11/05/2016 Injection injection, kenalog, 10 mg Bo Scott, D.O. 04/09/2016 Injection injection, kenalog, 10 mg Bo Scott, D.O. 11/02/2013 Injection Immunizations CPT Code Status Date Vaccine Lot # [id number] Given 11/05/2016 Influenza Virus Vaccine, Quadrivalent, Split, [id number] Preservative Free 68851 Given 01/17/2016 Prevnar 13 [id number] 01511 Given 12/05/2015 Influenza Virus Vaccine, Quadrivalent, Split, [id number] Preservative Free 61088 Given 11/02/2013 Pneumococcal Immunization [id number] 81081 Given 11/02/2013 Adacel or Boostrix, TDaP [id number] 60626 Given 11/02/2013 Influenza Virus Vaccine, Quadrivalent, Split, [id number] Preservative Free Vital Signs Date Vital Result Comment 07/07/2018 12:54pm BP Systolic 108 mmHg BP Diastolic 60 mmHg Height 64 inches 5'4" Weight 137.00 lb BMI (Body Mass Index) 23.5 kg/m2 04/04/2018 9:44am BP Systolic 110 mmHg BP Diastolic 68 mmHg Weight 137.00 lb 08/30/2017 3:47pm BP Systolic 110 mmHg BP Diastolic 70 mmHg Weight 132.00 lb with sandals 08/12/2017 9:12am BP Systolic 120 mmHg BP Diastolic 70 mmHg Body Temperature 97.8 F Height 64 inches 5'4"w/shoes Weight 139.00 lb w/shoes BMI (Body Mass Index) 23.9 kg/m2 01/01/2017 3:16pm BP Systolic 106 mmHg BP Diastolic 68 mmHg Body Temperature 97.9 F 11/09/2016 8:43am BP Systolic 118 mmHg BP Diastolic 65 mmHg Weight 136.00 lb 11/05/2016 10:19am BP Systolic 98 mmHg BP Diastolic 58 mmHg Height 64 inches 5'4" Weight 136.00 lb w/shoes BMI (Body Mass Index) 23.3 kg/m2 09/30/2016 4:01pm BP Systolic 100 mmHg BP Diastolic 60 mmHg Height 64 inches 5'4" Weight 135.00 lb BMI (Body Mass Index) 23.2 kg/m2 08/13/2016 8:35am BP Systolic 104 mmHg BP Diastolic 68 mmHg Weight 139.00 lb 07/10/2016 9:16am BP Systolic 98 mmHg BP Diastolic 62 mmHg Weight 140.00 lb 05/28/2016 3:50pm BP Systolic 100 mmHg BP Diastolic 60 mmHg Body Temperature 98.2 F Weight 140.00 lb 04/23/2016 3:13pm BP Systolic 105 mmHg BP Diastolic 60 mmHg Body Temperature 98.3 F Height 64.5 inches 5'4.50" with sneakers Weight 137.00 lb with sneakers BMI (Body Mass Index) 23.2 kg/m2 04/09/2016 9:00am BP Systolic 102 mmHg BP Diastolic 65 mmHg Weight 142.00 lb with boots 01/17/2016 11:35am BP Systolic 110 mmHg BP Diastolic 64 mmHg Weight 140.00 lb 12/05/2015 1:50pm BP Systolic 103 mmHg BP Diastolic 53 mmHg Heart Rate 56 /min Weight 138.00 lb with shoes 11/29/2015 5:03pm BP Systolic 104 mmHg BP Diastolic 55 mmHg Body Temperature 98.0 F Weight 136.00 lb 09/23/2015 9:10am BP Systolic 96 mmHg BP Diastolic 60 mmHg Height 64 inches 5'4" Weight 134.00 lb BMI (Body Mass Index) 23.0 kg/m2 05/30/2015 8:39am BP Systolic 105 mmHg BP Diastolic 60 mmHg 05/22/2015 3:40pm BP Systolic 118 mmHg BP Diastolic 60 mmHg Body Temperature 98.0 F Weight 138.00 lb 04/18/2015 9:35am BP Systolic 109 mmHg BP Diastolic 61 mmHg Heart Rate 67 /min Weight 136.00 lb w/shoes 12/27/2014 8:29am BP Systolic 100 mmHg BP Diastolic 50 mmHg Height 64 inches 5'4" Weight 131.00 lb BMI (Body Mass Index) 22.5 kg/m2 08/14/2014 9:29am BP Systolic 97 mmHg BP Diastolic 58 mmHg Heart Rate 63 /min Weight 134.00 lb with sandals 07/31/2014 1:19pm BP Systolic 109 mmHg BP Diastolic 60 mmHg Heart Rate 67 /min Body Temperature 97.9 F Weight 135.00 lb shoes on 07/17/2014 8:49am BP Systolic 116 mmHg BP Diastolic 56 mmHg Heart Rate 60 /min Height 64 inches 5'4" Weight 134.50 lb shoes on BMI (Body Mass Index) 23.1 kg/m2 06/18/2014 2:54pm BP Systolic 100 mmHg BP Diastolic 60 mmHg Body Temperature 98.2 F Weight 138.00 lb 04/27/2014 9:18am BP Systolic 118 mmHg BP Diastolic 68 mmHg Height 64 inches 5'4" Weight 140.00 lb BMI (Body Mass Index) 24.0 kg/m2 04/24/2014 10:23am BP Systolic 117 mmHg BP Diastolic 65 mmHg Heart Rate 60 /min Weight 141.00 lb 02/14/2014 2:21pm BP Systolic 89 mmHg BP Diastolic 56 mmHg Heart Rate 66 /min Weight 138.00 lb 01/15/2014 9:10am BP Systolic 118 mmHg BP Diastolic 64 mmHg Weight 136.50 lb 12/14/2013 9:12am BP Systolic 100 mmHg BP Diastolic 60 mmHg Weight 136.50 lb 11/02/2013 2:12pm BP Systolic 100 mmHg BP Diastolic 62 mmHg Height 64 inches 5'4" Weight 135.00 lb BMI (Body Mass Index) 23.2 kg/m2 05/16/2013 12:54pm BP Systolic 110 mmHg BP Diastolic 62 mmHg Weight 142.00 lb 05/02/2013 10:48am BP Systolic 120 mmHg BP Diastolic 74 mmHg Height 63.75 inches 5'3.75" Weight 143.00 lb BMI (Body Mass Index) 24.7 kg/m2 Results Test Date Facility Test Result H/L Range Note Basic Metabolic Panel 10/28/[facility] Sodium 140 mmol/L N 135- 145 [phone] Potassium 4.1 mmol/L N 3.5-5.0 Chloride 106 mmol/L N 101-111 Co2 Carbon Dioxide 30 mmol/L N 22-32 Anion Gap 4 mmol/L N 2-11 Glucose 90 mg/dL N 70-100 Blood Urea Nitrogen 13 mg/dL N 6-24 Creatinine 0.90 mg/dL N 0.51-0.95 BUN/Creatinine Ratio 14.4 N 8-20 Calcium 9.2 mg/dL N 8.6-10.3 Egfr Non- 64.3 >60 Egfr 77.8 >60 1 Basic Metabolic Panel 08/17/2017 [facility] Sodium 138 mmol/L N 135- 145 [phone] Potassium 3.9 mmol/L N 3.5-5.0 Chloride 105 mmol/L N 101-111 Co2 Carbon Dioxide 26 mmol/L N 22-32 Anion Gap 7 mmol/L N 2-11 Glucose 133 mg/dL High 70-100 Blood Urea Nitrogen 19 mg/dL N 6-24 Creatinine 0.86 mg/dL N 0.51-0.95 BUN/Creatinine Ratio 22.1 High 8-20 Calcium 9.5 mg/dL N 8.6-10.3 Egfr Non- 68.0 >60 Egfr 87.5 >60 2 CBC Auto Diff 08/17/2017 [facility] White Blood 11.9 10^3/uL High 3.5 -10.8 [phone] Count Red Blood Count 4.83 10^6/uL N 4.00-5.40 Hemoglobin 14.6 g/dL N 12.0-16.0 Hematocrit 43 % N 35-47 Mean Corpuscular Volume 89 fL N 80-97 Mean Corpuscular Hemoglobin 30 pg N 27-31 Mean Corpuscular HGB Conc 34 g/dL N 31-36 Red Cell Distribution Width 14 % N 10.5-15 Platelet Count 228 10^3/uL N 150-450 Mean Platelet Volume 7.5 um3 N 7.4-10.4 Abs Neutrophils 8.8 10^3/uL High 1.5-7.7 Abs Lymphocytes 2.2 10^3/uL N 1.0-4.8 Abs Monocytes 0.7 10^3/uL N 0-0.8 Abs Eosinophils 0.1 10^3/uL N 0-0.6 Abs Basophils 0.1 10^3/uL N 0-0.2 Abs Nucleated RBC 0 10^3/uL Granulocyte % 74.0 % N 38-83 Lymphocyte % 18.4 % Low 25-47 Monocyte % 5.9 % N 0-7 Eosinophil % 0.9 % N 0-6 Basophil % 0.8 % N 0-2 Nucleated Red Blood Cells % 0 Urine Culture And 08/14/2017 [facility] Urine Culture SEE RESULT BELOW 3 Sensitivities [phone] Urinalysis Profile 08/14/2017 [facility] Urine Color Yellow [phone] Urine Appearance Cloudy Urine Specific Hillister 1.011 N 1.010-1.030 Urine pH 7.0 N 5-9 Urine Urobilinogen Negative Negative Urine Ketones Negative Negative Urine Protein 2+(100 mg/dL) Abnormal Negative Urine Leukocytes 3+ Abnormal Negative Urine Blood Negative Negative Urine Nitrite Negative Negative Urine Bilirubin Negative Negative Urine Glucose Negative Negative Urine White Blood Cell 3+(>20/hpf) Abnormal Absent Urine Red Blood Cell Trace(0-2/hpf) Absent Urine Bacteria Absent Absent Urine Squamous Epithelial Cell Present Abnormal Absent Comp Metabolic Panel 08/14/2017 [facility] Potassium 3.8 mmol/L N 3.5 -5.0 [phone] Chloride 104 mmol/L N 101-111 Co2 Carbon Dioxide 23 mmol/L N 22-32 Glucose 101 mg/dL High 70-100 Blood Urea Nitrogen 11 mg/dL N 6-24 Creatinine 0.83 mg/dL N 0.51-0.95 BUN/Creatinine Ratio 13.3 N 8-20 Calcium 9.5 mg/dL N 8.6-10.3 Total Protein 6.8 g/dL N 6.4-8.9 Albumin 4.0 g/dL N 3.2-5.2 Globulin 2.8 g/dL N 2-4 Albumin/Globulin Ratio 1.4 N 1-3 Total Bilirubin 0.80 mg/dL N 0.2-1.0 Alkaline Phosphatase 75 U/L N 34-104 Alt 100 U/L High 7-52 Ast 46 U/L High 13-39 Egfr Non- 70.9 >60 Egfr 91.1 >60 4 Sodium 139 mmol/L N 135-145 Anion Gap 12 mmol/L High 2-11 Laboratory test 08/14/2017 [facility] Partial 29.3 seconds N 26.0- 36.3 finding [phone] Thrombo Time PTT Lactic Acid 0.7 mmol/L N 0.5-2.0 5 Alcohol < 10 mg/dL N <10 Troponin-I (TnI) 0.00 ng/mL <0.04 Inr/Protime 08/14/2017 [facility] Inr 0.99 N 0.77-1.02 [phone] CBC Auto Diff 08/14/2017 [facility] White Blood Count 9.6 10^3/uL N 3.5-10.8 [phone] Red Blood Count 5.18 10^6/uL N 4.00-5.40 Hemoglobin 15.8 g/dL N 12.0-16.0 Hematocrit 46 % N 35-47 Mean Corpuscular Volume 88 fL N 80-97 Mean Corpuscular Hemoglobin 31 pg N 27-31 Mean Corpuscular HGB Conc 35 g/dL N 31-36 Red Cell Distribution Width 14 % N 10.5-15 Platelet Count 233 10^3/uL N 150-450 Mean Platelet Volume 7.6 um3 N 7.4-10.4 Abs Neutrophils 6.2 10^3/uL N 1.5-7.7 Abs Lymphocytes 2.6 10^3/uL N 1.0-4.8 Abs Monocytes 0.6 10^3/uL N 0-0.8 Abs Eosinophils 0.1 10^3/uL N 0-0.6 Abs Basophils 0.1 10^3/uL N 0-0.2 Abs Nucleated RBC 0 10^3/uL Granulocyte % 64.8 % N 38-83 Lymphocyte % 27.3 % N 25-47 Monocyte % 6.2 % N 0-7 Eosinophil % 0.8 % N 0-6 Basophil % 0.9 % N 0-2 Nucleated Red Blood Cells % 0.1 Urine Drug 08/14/2017 [facility] Amphetamine Ur None Detected None Detect SCR ED & [phone] Screen Pain Clinic Barbiturates Urine Screen Presumptive Posi <SEE NOTE> Abnormal None Detect 6 Benzodiazepine Urine Screen None Detected None Detect Urine Cannabinoids Screen None Detected None Detect Urine Cocaine Screen None Detected None Detect Urine Opiates Screen None Detected None Detect Urine Phencyclidine Screen None Detected None Detect 7 Laboratory test finding 08/14/2017 [facility] Ammonia 39 mcmol/L N 16 -53 [phone] Comp Metabolic Panel 08/10/2017 [facility] Sodium 140 mmol/L N 139- 145 [phone] Potassium 4.4 mmol/L N 3.5-5.0 Chloride 104 mmol/L N 101-111 Co2 Carbon Dioxide 29 mmol/L N 22-32 Anion Gap 7 mmol/L N 2-11 Glucose 93 mg/dL N 70-100 Blood Urea Nitrogen 11 mg/dL N 6-24 Creatinine 0.90 mg/dL N 0.51-0.95 BUN/Creatinine Ratio 12.2 N 8-20 Calcium 9.5 mg/dL N 8.6-10.3 Total Protein 6.6 g/dL N 6.4-8.9 Albumin 4.0 g/dL N 3.2-5.2 Globulin 2.6 g/dL N 2-4 Albumin/Globulin Ratio 1.5 N 1-3 Total Bilirubin 0.40 mg/dL N 0.2-1.0 Alkaline Phosphatase 80 U/L N 34-104 Alt 19 U/L N 7-52 Ast 22 U/L N 13-39 Egfr Non- 64.5 >60 Egfr 83.0 >60 8 Laboratory test 08/10/2017 [facility] C Reactive 12.56 mg/L High < 5.00 9 finding [phone] Protein CBC No Diff 08/10/2017 [facility] White Blood 7.0 10^3/uL N 3.5-10.8 [phone] Count Red Blood Count 4.98 10^6/uL N 4.00-5.40 Hemoglobin 15.1 g/dL N 12.0-16.0 Hematocrit 44 % N 35-47 Mean Corpuscular Volume 89 fL N 80-97 Mean Corpuscular Hemoglobin 30 pg N 27-31 Mean Corpuscular HGB Conc 34 g/dL N 31-36 Red Cell Distribution Width 15 % N 10.5-15 Platelet Count 235 10^3/uL N 150-450 Mean Platelet Volume 7.4 um3 N 7.4-10.4 Laboratory test 08/10/2017 [facility] Erythrocyte Sed 15 mm/Hr N 0- 30 finding [phone] Rate Laboratory test 12/18/2016 [facility] Helico Pylori Negative N Negative 10, 11 finding [phone] Antigen- Stool Laboratory test 11/20/2016 In House Occult Blood, F negative finding I T Comp Metabolic 07/10/2016 [facility] Sodium 138 mmol/L N 133-145 Panel [phone] Potassium 4.4 mmol/L N 3.5-5.0 Chloride 105 mmol/L N 101-111 Co2 Carbon Dioxide 28 mmol/L N 22-32 Anion Gap 5 mmol/L N 2-11 Glucose 87 mg/dL N 70-100 Blood Urea Nitrogen 12 mg/dL N 6-24 Creatinine 0.98 mg/dL High 0.51-0.95 BUN/Creatinine Ratio 12.2 N 8-20 Calcium 9.4 mg/dL N 8.6-10.3 Total Protein 6.4 g/dL N 6.4-8.9 Albumin 4.2 g/dL N 3.2-5.2 Globulin 2.2 g/dL N 2-4 Albumin/Globulin Ratio 1.9 N 1-3 Total Bilirubin 0.40 mg/dL N 0.2-1.0 Alkaline Phosphatase 65 U/L N 34-104 Alt 8 U/L N 7-52 Ast 18 U/L N 13-39 Egfr Non- 58.7 N >60 Egfr 75.5 N >60 12 Laboratory test 07/10/2016 [facility] TSH (Thyroid 1.23 mcIU/mL N 0.34-5.60 finding [phone] Stim Horm) Vitamin B12 463 pg/mL N 180-914 13 Vitamin D Total 25(Oh) 23.1 ng/mL Low 30-50 C Reactive Protein 8.04 mg/L High < 5.00 14 Erythrocyte Sed Rate 13 mm/Hr N 0-30 Magnesium 2.0 mg/dL N 1.9-2.7 Lyme Western Blot 07/10/2016 [facility] Lyme Disease IgG Negative N Negative [phone] Ab WB Lyme Disease IgG Bands Present No bands detecte <SEE NOTE> kDa N 15 Lyme Disease IgM Ab WB Negative N Negative Lyme Disease IgM Bands Present No bands detecte <SEE NOTE> kDa N 16 Lyme Disease Interpretation See Comment N 17 CBC Auto Diff 07/10/2016 [facility] White Blood Count 6.6 10^3/uL N 3.5-10.8 [phone] Red Blood Count 4.61 10^6/uL N 4.0-5.4 Hemoglobin 13.8 g/dL N 12.0-16.0 Hematocrit 42 % N 35-47 Mean Corpuscular Volume 91 fL N 80-97 Mean Corpuscular Hemoglobin 30 pg N 27-31 Mean Corpuscular HGB Conc 33 g/dL N 31-36 Red Cell Distribution Width 15 % N 10.5-15 Platelet Count 239 10^3/uL N 150-450 Mean Platelet Volume 9 um3 N 7.4-10.4 Abs Neutrophils 3.1 10^3/uL N 1.5-7.7 Abs Lymphocytes 2.7 10^3/uL N 1.0-4.8 Abs Monocytes 0.6 10^3/uL N 0-0.8 Abs Eosinophils 0.1 10^3/uL N 0-0.6 Abs Basophils 0.1 10^3/uL N 0-0.2 Abs Nucleated RBC 0.01 10^3/uL N Granulocyte % 47.7 % N 38-83 Lymphocyte % 40.9 % N 25-47 Monocyte % 8.5 % N 1-9 Eosinophil % 1.8 % N 0-6 Basophil % 1.1 % N 0-2 Nucleated Red Blood Cells % 0.1 N Connective Tissue Panel 05/23/2015 [facility] Anti-Nuclear Antibody 0.3 U N 18 [phone] Cyclic Citrullinated Peptide <15.6 U N 19 Interpretation See Comment N 20 Laboratory test 05/23/2015 [facility] Creatine Kinase(CK) 48 U/L N 10 -223 finding [phone] C Reactive Protein 4.62 mg/L N < 5.00 21 Erythrocyte Sed Rate 10 mm/Hr N 0-30 TSH (Thyroid Stim Horm) 1.00 ?IU/mL N 0.34-5.60 Vitamin B12 715 pg/mL N 180-914 22 Vitamin D Total 25(Oh) 29.8 ng/mL Low 30-50 Amylase 56 U/L N 29-103 Lipase 34 U/L N 11.0-82.0 Laboratory test finding 05/23[facility] Magnesium 2.1 mg/dL N 1.9-2.7 [phone] Comp Metabolic Panel 05/23/2015 [facility] Sodium 137 mmol/L N 133- 145 [phone] Potassium 4.3 mmol/L N 3.5-5.0 Chloride 103 mmol/L N 101-111 Co2 Carbon Dioxide 30 mmol/L N 22-32 Anion Gap 4 mmol/L N 2-11 Glucose 95 mg/dL N 70-100 Blood Urea Nitrogen 11 mg/dL N 6-24 Creatinine 0.91 mg/dL N 0.51-0.95 BUN/Creatinine Ratio 12.1 N 8-20 Calcium 9.4 mg/dL N 8.6-10.3 Total Protein 6.4 g/dL N 6.4-8.9 Albumin 4.3 g/dL N 3.2-5.2 Globulin 2.1 g/dL N 2-4 Albumin/Globulin Ratio 2.0 N 1-3 Total Bilirubin 0.70 mg/dL N 0.2-1.0 Alkaline Phosphatase 67 U/L N 34-104 Alt 7 U/L N 7-52 Ast 16 U/L N 13-39 Egfr Non- 64.2 N >60 Egfr 82.5 N >60 23 CBC Auto Diff 05/23/2015 [facility] White Blood Count 8.2 10^3/uL N 3.5-10.8 [phone] Red Blood Count 4.72 10^6/uL N 4.0-5.4 Hemoglobin 14.4 g/dL N 12.0-16.0 Hematocrit 44 % N 35-47 Mean Corpuscular Volume 93 fL N 80-97 Mean Corpuscular Hemoglobin 31 pg N 27-31 Mean Corpuscular HGB Conc 33 g/dL N 31-36 Red Cell Distribution Width 14 % N 10.5-15 Platelet Count 236 10^3/uL N 150-450 Mean Platelet Volume 8 um3 N 7.4-10.4 Abs Neutrophils 5.4 10^3/uL N 1.5-7.7 Abs Lymphocytes 2.3 10^3/uL N 1.0-4.8 Abs Monocytes 0.4 10^3/uL N 0-0.8 Abs Eosinophils 0.1 10^3/uL N 0-0.6 Abs Basophils 0 10^3/uL N 0-0.2 Abs Nucleated RBC 0 10^3/uL N Granulocyte % 65.7 % N 38-83 Lymphocyte % 27.9 % N 25-47 Monocyte % 4.3 % N 1-9 Eosinophil % 1.5 % N 0-6 Basophil % 0.6 % N 0-2 Nucleated Red Blood Cells % 0 N Xray 12/14/2013 [facility] Medicine X-Ray, Pelvis, 1 Or 2 No acute process 24 Views X-Ray, Hip, Complete, Min. Of 2 Views, LT no Acute process Vitamin D, 25 11/17/2013 [facility] 25-Hydroxy Vitamin D2 <4.0 ng/mL N 25 Hydroxy [phone] 25-Hydroxy Vitamin D3 24 ng/mL N 25-Hydroxy Vitamin D Total 24 ng/mL N 26 Comp Metabolic Panel 11/17/2013 [facility] Sodium 140 mmol/L N 133- 145 [phone] Potassium 4.0 mmol/L N 3.7-5.6 Chloride 106 mmol/L N 101-111 Co2 Carbon Dioxide 29 mmol/L N 22-32 Anion Gap 5 mmol/L N 2-11 Glucose 90 mg/dL N 70-100 Blood Urea Nitrogen 10 mg/dL N 6-24 Creatinine 0.82 mg/dL N 0.51-0.95 BUN/Creatinine Ratio 12.2 N 8-20 Calcium 9.6 mg/dL N 8.6-10.3 Total Protein 6.9 g/dL N 6.4-8.9 Albumin 4.5 g/dL N 3.2-5.2 Globulin 2.4 g/dL N 2-4 Albumin/Globulin Ratio 1.9 N 1-3 Total Bilirubin 0.60 mg/dL N 0.2-1.0 Alkaline Phosphatase 69 U/L N 34-104 Alt 10 U/L N 7-52 Ast 15 U/L N 13-39 Egfr Non- 72.6 N >60 Egfr 93.4 N >60 27 CBC Auto Diff 11/17/2013 [facility] White Blood Count 8.0 10^3/uL N 4.8-10.8 [phone] Red Blood Count 4.79 10^6/uL N 4.0-5.4 Hemoglobin 14.8 g/dL N 12.0-16.0 Hematocrit 44 % N 35-47 Mean Corpuscular Volume 91 fL N 80-97 Mean Corpuscular Hemoglobin 31 pg N 27-31 Mean Corpuscular HGB Conc 34 g/dL N 31-36 Red Cell Distribution Width 15 % N 10.5-15 Platelet Count 236 10^3/uL N 150-450 Mean Platelet Volume 8 um3 N 7.4-10.4 Abs Neutrophils 4.7 10^3/uL N 1.5-7.7 Abs Lymphocytes 2.6 10^3/uL N 1.0-4.8 Abs Monocytes 0.4 10^3/uL N 0-0.8 Abs Eosinophils 0.2 10^3/uL N 0-0.6 Abs Basophils 0.1 10^3/uL N 0-0.2 Abs Nucleated RBC 0 10^3/uL N Granulocyte % 59.0 % N 38-83 Lymphocyte % 32.5 % N 25-47 Monocyte % 4.7 % N 1-9 Eosinophil % 3.0 % N 0-6 Basophil % 0.8 % N 0-2 Nucleated Red Blood Cells % 0 N Laboratory test 11/17/2013 [facility] Hepatitis C Nonreactive N Nonreactive 28 finding [phone] Antibody TSH (Thyroid Stimulating Horm) 1.25 IU/mL N 0.34-5.60 29 Xray 11/02/2013 [facility] Dexa Bone Density See result sheet Study One Or More Sites Axial Skeleton 1 Because ethnic data is [...] 5 Kidney failure <15 (or dialysis) 2 Because ethnic data is not always readily [...] 15-29 5 Kidney failure <15 (or dialysis) 3 SEE RESULT BELOW Name: JINA THOMAS : [address]: Aquilino Nye MD Acct: [id number] Unit: [id number] AGE: 56 Location: [place] [address] Re08/14/17 SEX: F Status: ADM IN SPEC: [id number] HAZEL: 08/14/[address] [facility] [address]: Emeterio Caraballo MD REQ: [id number] RECD: 08/14/17 STATUS: HARINDER MORAN DR: Bo Scott DO _ SOURCE: URINE SPDESC: ORDERED: Urine Culture Procedure Result Reported Site Urine Culture Final 08/16/17- 906 ML Mixed duyen; possible contamination. Suggest resubmission. * ML - Main Lab . END OF REPORT DEPARTMENT OF PATHOLOGY, [address] [place] [id number] Casey Aguilar M.D. Director [facility] # [id number] 4 Because ethnic data is not always readily [...] 15-29 5 Kidney failure <15 (or dialysis) 5 [facility] Severe Sepsis and Septic Shock Management Bundle Measure requires all lactic acids initially measuring >2.0 mmol/L be repeated. 6 Presumptive Positive Presumptive positive results are unconfirmed. 7 The urine specimen was tested at the listed cutoffs: Drug class test level (ng/mL) Amphetamines 500 Barbiturates 200 Benzodiazepine metabolites 200 Cocaine metabolites 150 Cannabinoids 50 Opiates 300 Pcp 25 Specimen was received without chain of custody. Results should be used for medical purposes only. 8 Because ethnic data is not always readily [...] 15-29 5 Kidney failure <15 (or dialysis) 9 Acute inflammation: >10.00 10 [id number] Stool 11 Test Performed by: [facility] [address] [place] [address] 12 Because ethnic data is not always readily [...] 15-29 5 Kidney failure <15 (or dialysis) 13 Normal Range 180 to 914 Indeterminate Range 145 to 180 Deficient Range <145 14 Acute inflammation: >10.00 15 No bands detected 16 No bands detected 17 Specific serologic response to B. burgdorferi infection [...] screening test (e.g., EIA). Test Performed by: [facility] [address] [place] [address] 18 REFERENCE VALUE <=1.0 (Negative) 19 REFERENCE VALUE <20.0 (Negative) 20 Tests for antibodies to dsDNA and ROSANNE antigens are not performed automatically unless the DANI result is > or= 3.0 U. Studies performed at [facility] indicate that positive DANI results <3.0 U are rarely accompanied by positive second order tests. Test Performed by: [place] [address] Drive Tester: Sid Yee II, M.D., Ph.D. 21 Acute inflammation: >10.00 22 Normal Range 180 to 914 Indeterminate Range 145 to 180 Deficient Range <145 23 Because ethnic data is not always readily [...] 15-29 5 Kidney failure <15 (or dialysis) 24 Joint space narrowing mildly bilaterally. Suggestion of femeroacetabular impingement. 25 FASTING 26 -- REFERENCE VALUE -- 25-HYDROXY D TOTAL (D2+D3) Optimum levels in the healthy population are 20-50, patients with bone disease may benefit from higher levels within this range. Test Performed by: [place] [address] Drive Tester: Kwabena Fine III, M.D. 27 Because ethnic data is not always readily [...] 15-29 5 Kidney failure <15 (or dialysis) 28 FASTING 29 FASTING Procedures Date Code Description Status 07/07/2018 51798 Omt 7-8 Body Regions Completed 07/07/201847901 Inject/Drain Joint/Bursa Major Completed 09/16/2017 [id number] Mammogram Completed 11/09/2016 44160 Omt 7-8 Body Regions Completed 11/05/201673878 Inject/Drain Joint/Bursa Major Completed 09/30/2016 61503 Omt 7-8 Body Regions Completed 08/13/2016 19950 X-Ray, Thoracic Spine, Ap & Lat Completed 08/13/2016 41409 X-Ray, Lumbar Spine Complete, Obl Completed 08/13/2016 81534 X-Ray, Lumbar Spine Complete, Obl Completed 08/13/2016 66569 X-Ray, Thoracic Spine, Ap & Lat Completed 07/10/2016 47236 Omt 7-8 Body Regions Completed 04/09/2016 50446 Omt 7-8 Body Regions Completed 04/09/201647533 Inject/Drain Joint/Bursa Major Completed 03/01/2016 78114411 Colonoscopy Completed 01/17/2016 07054 Omt 7-8 Body Regions Completed 12/05/2015 01856 Omt 7-8 Body Regions Completed 08/14/2014 45328 Bronchospasm Evaluation Pre & Post Completed 04/27/2014 14065 Omt 3 To 4 Body Regions Involved Completed 02/14/2014 00174 Osteopathic Manipulative Treament 5-6 Body Regions Completed 01/15/201436273 Inject/Drain Joint/Bursa Major Completed 12/14/2013 75602 X-Ray Hip Two Or More Views Completed 12/14/2013 64306 X-Ray Pelvis, Ap Only Completed 11/02/2013 70509 Dexa Bone Density Study One Or More Sites Axial Completed Skeleton 11/02/2013 80790 Inject/Drain Joint/Bursa Major Completed Encounters Type Date Location Provider Dx Diagnosis Office Visit 04/04/2018 Main Office Bo Scott, 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 R05 Cough M54.2 Cervicalgia R51 Headache M54.81 Occipital neuralgia J01.00 Acute maxillary sinusitis, unspecified J44.1 Chronic obstructive pulmonary disease w (acute) exacerbation Office Visit 01/01/2017 2:45p Main Office Bo Scott, K25.9 Gastric ulcer, D.O. unsp as acute or chronic, w/o hemor or perf J44.1 Chronic obstructive pulmonary disease w (acute) exacerbation Office Visit 11/09/2016 8:30a Main Office Bo Scott D.Elias. M54.5 Low back pain K25.9 Gastric ulcer, unsp as acute or chronic, w/o hemor or perf M99.00 Segmental and somatic dysfunction of head region M99.01 Segmental and somatic dysfunction of cervical region M99.02 Segmental and somatic dysfunction of thoracic region M99.04 Segmental and somatic dysfunction of sacral region M54.2 Cervicalgia R53.83 Other fatigue M99.05 Segmental and somatic dysfunction of pelvic region M99.08 Segmental and somatic dysfunction of rib cage M99.03 Segmental and somatic dysfunction of lumbar region Office Visit 11/05/2016 10:30a Main Office [place], M19.011 Primary Michelle Soriano osteoarthritis, right shoulder M19.012 Primary osteoarthritis, left shoulder K25.9 Gastric ulcer, unsp as acute or chronic, w/o hemor or perf M79.7 Fibromyalgia F17.210 Nicotine dependence, cigarettes, uncomplicated M54.2 Cervicalgia M54.5 Low back pain R53.83 Other fatigue Z00.00 Encntr for general adult medical exam w/o abnormal findings Z41.8 [facility] Encounter for immunization Z71.89 Other specified counseling Office Visit 09/30/2016 3:45p Main Office Bo Scott, M99.03 Segmental and D.O. somatic dysfunction of lumbar region M99.05 Segmental and somatic dysfunction of pelvic region M99.04 Segmental and somatic dysfunction of sacral region M99.02 Segmental and somatic dysfunction of thoracic region M99.08 Segmental and somatic dysfunction of rib cage M99.01 Segmental and somatic dysfunction of cervical region M99.00 Segmental and somatic dysfunction of head region M79.7 Fibromyalgia F17.210 Nicotine dependence, cigarettes, uncomplicated M54.2 Cervicalgia M54.6 Pain in thoracic spine R05 Cough Office Visit 08/13/2016 8:30a Main Office Bo Scott D.O. 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 R53.83 Other fatigue S93.602A Unspecified sprain of left foot, initial encounter X50.1xxA Overexertion from prolonged static or awkward postures, init M99.04 Segmental and somatic dysfunction of sacral region M99.03 Segmental and somatic dysfunction of lumbar region M99.05 Segmental and somatic dysfunction of pelvic region M99.02 Segmental and somatic dysfunction of thoracic region M99.08 Segmental and somatic dysfunction of rib cage M99.00 Segmental and somatic dysfunction of head region M99.01 Segmental and somatic dysfunction of cervical region Office Visit 05/28/2016 3:55p Main Office Sue Romo, A69.20 Lyme disease, PA unspecified Office Visit 04/23/2016 2:55p Main Office Sue Romo, J20.9 Acute bronchitis, PA unspecified F17.210 Nicotine dependence, cigarettes, uncomplicated Office Visit 04/09/2016 9:00a Main Office Bo Scott, M99.03 Segmental and D.O. somatic dysfunction of lumbar region M99.04 Segmental and somatic dysfunction of sacral region M99.02 Segmental and somatic dysfunction of thoracic region M99.01 Segmental and somatic dysfunction of cervical region M99.08 Segmental and somatic dysfunction of rib cage M99.05 Segmental and somatic dysfunction of pelvic region M99.00 Segmental and somatic dysfunction of head region M54.2 Cervicalgia M19.011 Primary osteoarthritis, right shoulder M25.611 Stiffness of right shoulder, not elsewhere classified F17.210 Nicotine dependence, cigarettes, uncomplicated Office Visit 01/17/2016 11:30a Main Office Bo Scott, M99.03 Segmental and D.O. somatic dysfunction of lumbar region M99.02 Segmental and somatic dysfunction of thoracic region M99.04 Segmental and somatic dysfunction of sacral region M99.00 Segmental and somatic dysfunction of head region M99.01 Segmental and somatic dysfunction of cervical region M99.08 Segmental and somatic dysfunction of rib cage M99.05 Segmental and somatic dysfunction of pelvic region Z23 Encounter for immunization F17.210 Nicotine dependence, cigarettes, uncomplicated Z63.79 Other stressful life events affecting family and household Office Visit 12/05/2015 2:00p Main Office Bo Scott, D.O. M54.5 Low back pain M99.02 Segmental and somatic dysfunction of thoracic region F17.210 Nicotine dependence, cigarettes, uncomplicated M99.01 Segmental and somatic dysfunction of cervical region M99.08 Segmental and somatic dysfunction of rib cage M99.03 Segmental and somatic dysfunction of lumbar region M99.04 Segmental and somatic dysfunction of sacral region M99.00 Segmental and somatic dysfunction of head region M99.05 Segmental and somatic dysfunction of pelvic region Office Visit 11/29/2015 4:45p Main Office Bo Scott, J01.00 Acute maxillary D.O. sinusitis, unspecified Office Visit 09/23/2015 9:15a Main Office Bo Scott, G25.81 Restless legs D.O. syndrome R53.83 Other fatigue M54.5 Low back pain E55.9 Vitamin D deficiency, unspecified Z00.01 Encounter for general adult medical exam w abnormal findings Office Visit 05/30/2015 8:30a Main Office Bo Scott, K56.5 Intestinal adhesions w D.O. obst (postprocedural) (postinfection) R10.13 Epigastric pain Office Visit 05/22/2015 3:30p Main Office Bo Scott D.OTanya R53.83 Other fatigue F17.210 Nicotine dependence, cigarettes, uncomplicated R10.84 Generalized abdominal pain K25.9 Gastric ulcer, unsp as acute or chronic, w/o hemor or perf Office Visit 04/18/2015 9:45a Main Office Bo Scott, Z82.49 Family hx of D.OTanya ischem heart dis and oth dis of the circ sys F17.210 Nicotine dependence, cigarettes, uncomplicated Z13.6 Encounter for screening for cardiovascular disorders J43.9 Emphysema, unspecified Office Visit 12/27/2014 8:30a Main Office Bo Scott, K62.89 Other specified D.O. diseases of anus and rectum E55.9 Vitamin D deficiency, unspecified R15.9 Full incontinence of feces Office Visit 08/14/2014 9:45a Main Office Bo Scott, 493.00 Asthma Extrinsic D.O. Unspecified 461.0 Sinusitis Acute Maxillary 466.0 Bronchitis Acute 268.9 Vitamin D Deficiency Unspec 780.79 Malaise And Fatigue Other 724.2 Lumbago 719.45 Pain Joint Pelvic Region & Thigh Office Visit 07/31/2014 1:15p Main Office Bo Scott, 461.0 Sinusitis Acute D.O. Maxillary 466.0 Bronchitis Acute 493.00 Asthma Extrinsic Unspecified Office Visit 07/17/2014 8:45a Main Office Bo Scott, 268.9 Vitamin D D.O. Deficiency Unspec 305.1 Tobacco Use Disorder 780.79 Malaise And Fatigue Other 724.2 Lumbago 719.45 Pain Joint Pelvic Region & Thigh Office Visit 06/18/2014 2:30p Main Office Bo Scott, 268.9 Vitamin D D.O. Deficiency Unspec 305.1 Tobacco Use Disorder 780.79 Malaise And Fatigue Other Office Visit 04/27/2014 9:15a Main Office Bo Scott D.O. 724.2 Lumbago 719.45 Pain Joint Pelvic Region & Thigh 739.3 Lesion Nonallopathic Lumbar Region Not Elsewhere Class 739.5 Lesion Nonallopathic Pelvic Region Not Elsewhere Class 739.4 Lesion Nonallopathic Sacral Region Not Elsewhere Class Office Visit 02/14/2014 2:00p Main Office Bo Scott D.O. 724.2 Lumbago 719.45 Pain Joint Pelvic Region & Thigh 726.5 Enthesopathy Of Hip Region 268.9 Vitamin D Deficiency Unspec 739.2 Lesion Nonallopathic Thoracic Region Not Elsewhere Class 739.3 Lesion Nonallopathic Lumbar Region Not Elsewhere Class 739.4 Lesion Nonallopathic Sacral Region Not Elsewhere Class 739.5 Lesion Nonallopathic Pelvic Region Not Elsewhere Class 739.8 Lesion Nonallopathic Rib Cage Not Elsewhere Class Office Visit 01/15/2014 9:15a Main Office Bo Scott, 564.00 Constipation D.O. Unspecified 564.1 Irritable Bowel Syndrome 724.2 Lumbago 719.45 Pain Joint Pelvic Region & Thigh 726.5 Enthesopathy Of Hip Region Office Visit 12/14/2013 9:15a Main Office Bo Scott, 719.45 Pain Joint D.O. Pelvic Region & Thigh 564.00 Constipation Unspecified Office Visit 11/02/2013 2:00p Main Office Bo Scott, 496 COPD Airway D.O. Obstruction Chronic Not Class Elsewhere V76.51 Special Screening For Malignant Neoplasms Colon V82.81 Special Screening For Osteoporosis V70.0 Examination General Medical Routine AT Health Care Facility 724.2 Lumbago 726.11 Tendinitis Calcifying Shoulder V03.82 Streptococcus Pneumoniae Vaccination Spec Other V06.1 Tnjylxqikr-Cucbqdt-Fwhruraj Combined (DTaP) V04.81 Need For Prophylactic Vaccination & Inoculation/Influenza 733.90 Bone & Cartilage Disorder Unspec V07.2 Prophylactic Immunotherapy 627.4 Artificial Menopause States, Symptomatic Office Visit 05/16/2013 12:55p Main Office Bo Scott, 274.00 Gouty Arthropathy, D.O. 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 461.0 Sinusitis Acute Maxillary 305.1 Tobacco Use Disorder 381.00 Otitis Media Nonsuppurative Acute Unspec 486 Pneumonia Organism Unspec Plan of Treatment 07/07/2018 - Bo Scott D.O.I67.841 Reversible cerebrovascular vasoconstriction qajgihklV34.02 Spondylolysis, cervical pyccjbN47.62 Trochanteric bursitis, left hipF17.210 Nicotine dependence, cigarettes, liwefbyvvgfbcV61.9 Chronic obstructive pulmonary disease, kempbkepxmjI60.5 Low back painFollow up:[facility] 2 months recheck back/neck/hip pain s/p stroke OMMES06.2x9A Diffuse traumatic brain injury with loss of consciousness of unspecified duration, initial dkkqgzaecW26.03 Segmental and somatic dysfunction of lumbar yqgxnrM63.05 Segmental and somatic dysfunction of pelvic hiotfxD83.04 Segmental and somatic dysfunction of sacral mdykguM04.02 Segmental and somatic dysfunction of thoracic zwofojN00.08 Segmental and somatic dysfunction of rib cageM99.00 Segmental and somatic dysfunction of head qovnzaT65.01 Segmental and somatic dysfunction of cervical region
[2018-07-24] MEDS ORDERED: Famotidine TAB* 20 MG PO ONE (18:08)
--- NOTE | 2018-07-24 18:10 | ED ---
Skin Complaint - HPI Summary HPI Summary: Patient complains of pruritic rash to bilateral inner elbows and left knee x 2 days. Whole-body itching. Patient has been using cortisone cream with no effect. Denies new lotions or creams, and has new foods. Denies fever, cough, sore throat, CP, SOB, N/V/D, abdominal pain, change in urine, change in BM. - History of Current Complaint Chief Complaint: EDRashSkinAbscess Time Seen by Provider: 07/24/18 17:39 Stated Complaint: RASH PER PT Hx Obtained From: Patient Onset/Duration: Started Days Ago Skin Exposure Onset/Duration: Days Ago Timing: Constant Current Severity: None Pain Intensity: 0 Pain Scale Used: 0-10 Numeric Skin Location: Arm, Leg Aggravating Symptom(s): Nothing Alleviating Symptom(s): Nothing Associated Signs & Symptoms: Rash - Additional Pertinent History Primary Care Physician: REBECCA - Allergy/Home Medications Allergies/Adverse Reactions: Allergies Allergy/AdvReac Type Severity Reaction Status Date / Time Adhesive Tape Allergy Unknown Verified 07/24/18 17:07 Reaction Details hydrocodone [From Vicodin] Allergy Rash Verified 07/24/18 17:07 Penicillins Allergy Rash Verified 07/24/18 17:07 prednisone Allergy GI Upset Verified 07/24/18 17:07 varenicline [From Chantix] Allergy Rash Verified 07/24/18 17:07 PMH/Surg Hx/FS Hx/Imm Hx Endocrine/Hematology History: Denies: Hx Diabetes, Hx Thyroid Disease Cardiovascular History: Reports: Hx Angina Denies: Hx Coronary Artery Disease, Hx Hypercholesterolemia, Hx Hypertension , Hx Myocardial Infarction, Hx Pacemaker/ICD, Hx Valvular Heart Disease Respiratory History: Reports: Hx Chronic Obstructive Pulmonary Disease (COPD) Denies: Hx Asthma GI History: Reports: Hx Gall Bladder Disease - Cholecystectomy Denies: Hx Ulcer History: Reports: Hx Kidney Infection Denies: Hx Dialysis, Hx Renal Disease Musculoskeletal History: Reports: Hx Arthritis, Hx Back Problems, Hx Fibromyalgia, Hx Osteoporosis Denies: Other Musculoskeletal History Sensory History: Denies: Hx Contacts or Glasses, Hx Hearing Aid Opthamlomology History: Denies: Hx Contacts or Glasses Neurological History: Reports: Hx Headaches, Hx Migraine, Other Neuro Impairments/Disorders - Subarachnoid hemorrhage, Reversible cerebrovascular constriction syndrome Psychiatric History: Reports: Hx Anxiety, Hx Depression Denies: Hx Panic Disorder, Other Psychiatric Issues/Disorders - Cancer History Cancer Type, Location and Year: cervical-no chemo Hx Chemotherapy: No Hx Radiation Therapy: No - Surgical History Surgery Procedure, Year, and Place: cholesystectomy. hysterectomy. lypmh node removed from neck. RIGHT BREAST BIOPSY Hx Anesthesia Reactions: No Infectious Disease History: No Infectious Disease History: Denies: Hx Clostridium Difficile, Hx Hepatitis, Hx Human Immunodeficiency Virus (HIV), Hx of Known/Suspected MRSA, Hx Shingles, Hx Tuberculosis, Hx Known/ Suspected VRE, Hx Known/Suspected VRSA, History Other Infectious Disease, Traveled Outside the [place] in Last 30 Days - Family History Known Family History: Positive: None, Cardiac Disease, Respiratory Disease - COPD, Other - cancer Negative: Renal Disease, Seizure Disorder, Blood Disorder - Social History Alcohol Use: None Substance Use Type: Reports: None Smoking Status (MU): Heavy Every Day Tobacco Smoker Type: Cigarettes Amount Used/How Often: 1 ppd Length of Time of Smoking/Using Tobacco: 33 years Have You Smoked in the Last Year: Yes Review of Systems Constitutional: Negative Eyes: Negative ENT: Negative Cardiovascular: Negative Respiratory: Negative Gastrointestinal: Negative Genitourinary: Negative Musculoskeletal: Negative Positive: Rash Neurological: Negative Psychological: Normal All Other Systems Reviewed And Are Negative: Yes Physical Exam Triage Information Reviewed: Yes Vital Signs On Initial Exam: Initial Vitals Temp Pulse Resp BP Pulse Ox 97.8 F 67 14 112/53 95 07/24/18 17:03 07/24/18 17:03 07/24/18 17:03 07/24/18 17:03 07/24/18 17:03 Vital Signs Reviewed: Yes Appearance: Positive: Well-Appearing Skin: Positive: Warm Head/Face: Positive: Normal Head/Face Inspection Eyes: Positive: Normal ENT: Positive: Normal ENT inspection Neck: Positive: Supple Respiratory/Lung Sounds: Positive: Clear to Auscultation Cardiovascular: Positive: Normal Abdomen Description: Positive: Nontender Musculoskeletal: Positive: Normal Neurological: Positive: Normal Psychiatric: Positive: Normal AVPU Assessment: Alert - John Coma Scale Best Eye Response: 4 - Spontaneous Best Motor Response: 6 - Obeys Commands Best Verbal Response: 5 - Oriented Coma Scale Total: 15 Diagnostics - Vital Signs Vital Signs Temp Pulse Resp BP Pulse Ox 07/24/18 17:03 97.8 F 67 14 112/53 95 - Laboratory Lab Statement: Any lab studies that have been ordered have been reviewed, and results considered in the medical decision making process. Course/Dx - Course Course Of Treatment: Patient complains of pruritic rash to bilateral inner elbows and left knee x 2 days. Whole-body itching. Patient has been using cortisone cream with no effect. Denies new lotions or creams, and has new foods. Denies fever, cough, sore throat, CP, SOB, N/V/D, abdominal pain, change in urine, change in BM. Patient advised likely allergic reaction. Patient states she will take Benadryl at home and return to the ED for any new or worsening symptoms. Patient given famotidine here in the ED. Physical exam negative for oral or facial involvement. - Diagnoses Provider Diagnoses: Allergic reaction Discharge - Sign-Out/Discharge Documenting (check all that apply): Patient Departure Patient Received Moderate/Deep Sedation with Procedure: No - Discharge Plan Condition: Stable Disposition: HOME Patient Education Materials: General Allergic Reaction (ED) Referrals: Bo Scott DO [Primary Care Provider] - Additional Instructions: Take Benadryl 50 mg every 6 hours for rash. Return to the ED for any new or worsening symptoms. - Billing Disposition and Condition Condition: STABLE Disposition: Home
[2018-07-24 18:43] VITALS: BP 102/50
== END 2018-07-24 18:42 | disposition home or self-care (01) ==
LOC: ED 16:50
DX: T78.40XA Allergy, unspecified, initial encounter (principal); Z88.0 Allergy status to penicillin; J44.9 Chronic obstructive pulmonary disease, unspecified; F17.210 Nicotine dependence, cigarettes, uncomplicated
CPT/HCPCS: 99282

== ENCOUNTER 2018-12-12 08:18 | Emergency (ER) | payer MEDICARE, MEDICAID ==
--- OUTSIDE RECORDS SUMMARY | 2018-12-12 08:48 | XMS REPORT | Continuity of Care Document ---
:1960 External Reference #:[id number] Author Name Avis Rizzo M.D. (transmitted by agent of provider Nanci Ko) Address [address] [place] [id number] Care Team Providers Name Role Phone Mary Ann Ibarra MD - Internal Medicine Care Team Information [employer] [place] [phone] Aman Dorado MD - Orthopaedic Care Team Information [employer] [facility] Surgery Bo Scott DO - Family Care Team Information [employer] [facility] Medicine Problems Active Problems Provider Date Tobacco user Mary Ann Ibarra M.D., FACP Onset: 05/13/2010 Myalgia & Myositis Unspecified Feroz Christie M.D. Onset: 05/13/2010 Altered mental status Say Ramos M.D. Onset: 09/24/2017 Headache Say Ramos M.D. Onset: 09/24/2017 Traumatic subarachnoid hemorrhage without Say Ramos M.D. Onset: 09/24 loss of consciousness, subsequent encounter Substance abuse counseling Say Ramos M.D. Onset: 09/24/2017 Transient cerebral ischemia Say Ramos M.D. Onset: 10/28/2017 Moderate recurrent major depression Say Ramos M.D. Onset: 10/28/2017 Psoas tendinitis Avis Rizzo M.D. Onset: 10/21/2018 Localized, primary osteoarthritis of the Avis Rizzo M.D. Onset: 10/21/2018 pelvic region and thigh Social History Type Date Description Comments Sex Unknown Tobacco Use Start: Unknown Patient is a current cigarette smoker, smokes every day Tobacco Use Start: Unknown Current Cigarette Smoker 1 Pack Daily Cigarette Use Pack Years - 30 Smoking Status Reviewed: 10/21/18 Current Cigarette Smoker 1 Pack Daily ETOH Use Denies alcohol use Recreational Drug Use Denies Drug Use Tobacco Use Start: Unknown Patient is a current smoker, 1 pack a day smokes every day Exercise Type/Frequency Exercises sporadically Allergies, Adverse Reactions, Alerts Active Allergies Reaction Severity Comments Date Vicodin rash Moderate 09/23/2009 Augmentin donna,upset stomach Severe 09/23/2009 Penicillins Urticaria Moderate 05/13/2010 Chantix 03/20/2015 Adhesives Contact dermatitis 03/20/2015 Medications Active Medications SIG Qnty Indications Ordering Provider Date Magnesium 1/2 tablet by 90tabs Say Ramos, 500mg mouth every day M.D. Tablets Verapamil HCL 1/2 tab by 90tabs Say Ramos, 40mg mouth three M.D. Tablets times a day (pt has 20 mg tabs) Multi For Her 50+ 1 tablet daily Unknown Tablets Pompey 3 500 take one Unknown 500mg capsule/tablet Capsules daily by mouth Biotin 1 by mouth once Unknown 5000mcg a day Capsules History Medications Topiramate 1 tab po qhs 120tabs G43.009 Ruslan Coleman, 08/22/2018 - 25mg for 1 week M.D. Unknown Tablets then 2 tabs qhs for 1 week then 3 tabs qhs for 1 week then 4 tabs qhs Immunizations CPT Code Status Date Vaccine Lot # [id number] Given 12/18/2011 Afluria Vaccine [id number] Given 12/20/2007 Influenza Virus 3Yrs & Over Vital Signs Date Vital Result Comment 10/21/2018 10:42am Height 64 inches 5'4" Weight 135.00 lb Heart Rate 60 /min BP Systolic 116 mmHg BP Diastolic 70 mmHg Pain Level 6 BMI (Body Mass Index) 23.2 kg/m2 08/22/2018 10:45am Height 64 inches 5'4" Weight 135.00 lb Heart Rate 72 /min BP Systolic Sitting 104 mmHg BP Diastolic Sitting 58 mmHg Respiratory Rate 18 /min BMI (Body Mass Index) 23.2 kg/m2 Results Description No Information Available Procedures Date Code Description Status 04/27/2018 77158 EKG Tracing & Interpretation Completed 11/23/2011 [id number] Mammogram Completed 05/19/2010 [id number] Diabetic Retinal Eye Exam Completed 01/28/2010 [id number] Mammogram Completed 01/09/2008 [id number] Colonoscopy Completed Medical Devices Description No Information Available Encounters Type Date Location Provider Dx Diagnosis Office Visit 08/22/2018 [facility] Ruslan Meneses G43.009 Migraine w/o aura, 10:45a [facility] Coleman M.D. not intractable, w/o status migrainosus Office Visit 04/27/2018 [facility] Luis Manuel Knox, Z72.0 Tobacco use 11:00a [facility] DO FACC I49.1 Atrial premature depolarization I67.841 Reversible cerebrovascular vasoconstriction syndrome S06.6x0S Traum subrac hem w/o loss of consciousness, sequela Assessments Date Code Description Provider 10/21/2018 M25.552 Pain in left hip Avis Rizzo M.D. 10/21/2018 M16.12 Unilateral primary osteoarthritis, left Avis Rizzo M.D. hip 10/21/2018 M76.12 Psoas tendinitis, left hip Avis Rizzo M.D. 08/22/2018 G43.009 Migraine without aura, not intractable, Ruslan Coleman M.D. without status migra 04/27/2018 Z72.0 Tobacco use Luis Manuel Knox DO FACC 04/27/2018 I49.1 Atrial premature depolarization Luis Manuel Knox DO FACC 04/27/2018 I67.841 Reversible cerebrovascular Luis Manuel Knox DO FAC vasoconstriction syndrome 04/27/2018 S06.6x0S Traumatic subarachnoid hemorrhage Luis Manuel Knox DO [facility] without loss of consciousn Plan of Treatment Future Appointment(s):01/25/2019 9:45 am - Avis Rizzo M.D. at [facility]11/02/2018 10:30 am - Ruslan Coleman M.D. at [facility]10/21/2018 - Avis Rizzo M.D.M25.552 Pain in left hipNew Xrays:Hip Left 2 Views And Pelvis [id number] - [id number], Ordered: 08/23/19New Therapy:Physical TherapyFollow up:Follow up: 3 [id number] Unilateral primary osteoarthritis, left hipM76.12 Psoas tendinitis, left hip Functional Status Description No Information Available Mental Status Description No Information Available Referrals Refer to Reason for Referral Status Appt Date [facility] Refer to ENT for chronic sinus issues. Sent [address] [place] [address] [phone]
[2018-12-12] MEDS ORDERED: Famotidine IV* 10 MG/ML 2 ML (20 mg) IV SLOW PU ONE (09:00)
[2018-12-12] MEDS ORDERED: Lactated Ringers 1000 ML Bag* 1,000 ML IV ONE (09:00)
[2018-12-12] MEDS ORDERED: Ketorolac INJ* 30 MG/ML 1 ML VIAL IV PUSH ONE (09:00)
[2018-12-12] MEDS ORDERED: Ondansetron INJ* 2 MG/ML VIAL IV ONE (09:00)
--- NOTE | 2018-12-12 09:05 | ED ---
Headache - HPI Summary HPI Summary: Pt is a 58 y/o F presenting to the ED with a chief complaint of weakness initially onset yesterday accompanied by a headache. She states she has had diaphoresis at night recently, and her headache came on yesterday in the occipital region. This morning she woke up generally weak around 0430, but notes her headache was now R temporal. She had her coffee, some water, and was very lightheaded in the shower. She reports difficulty speaking, chronic cough from smoking, pain from arthritis, and nausea. She denies fever, rhinorrhea, sore throat, ear pain, abd pain, vomiting, dysuria, or hematuria. She has not gotten her flu shot yet this year. - History Of Current Complaint Chief Complaint: EDGeneral Stated Complaint: SICK PER EMS Time Seen by Provider: 12/12/18 08:33 Hx Obtained From: Patient Onset/Duration: Gradual Onset, Started days ago, Still Present Initially Headache Was: Moderate Currently Pain Is: Moderate Timing: Constant, Hours Location of Headache: Temporal, Occipital Aggravating Factor: Nothing Allevating Factors: Nothing Associated Signs And Symptoms: Nausea - Allergies/Home Medications Allergies/Adverse Reactions: Allergies Allergy/AdvReac Type Severity Reaction Status Date / Time Adhesive Tape Allergy Unknown Verified 07/24/18 17:07 Reaction Details hydrocodone [From Vicodin] Allergy Rash Verified 07/24/18 17:07 Penicillins Allergy Rash Verified 07/24/18 17:07 prednisone Allergy GI Upset Verified 07/24/18 17:07 varenicline [From Chantix] Allergy Rash Verified 07/24/18 17:07 Home Medications: Home Medications Magnesium Oxide TAB* [MagOx 400 TAB*] 400 mg PO DAILY 12/12/18 [History Confirmed 12/12/18] Multivitamins/Minerals TAB* [Theragran/minerals TAB*] 1 tab PO DAILY 12/12/18 [ History Confirmed 12/12/18] PMH/Surg Hx/FS Hx/Imm Hx Previously Healthy: Yes Endocrine/Hematology History: Denies: Hx Diabetes, Hx Thyroid Disease Cardiovascular History: Reports: Hx Angina Denies: Hx Coronary Artery Disease, Hx Hypercholesterolemia, Hx Hypertension , Hx Myocardial Infarction, Hx Pacemaker/ICD, Hx Valvular Heart Disease Respiratory History: Reports: Hx Chronic Obstructive Pulmonary Disease (COPD) Denies: Hx Asthma GI History: Reports: Hx Gall Bladder Disease - Cholecystectomy Denies: Hx Ulcer History: Reports: Hx Kidney Infection Denies: Hx Dialysis, Hx Renal Disease Musculoskeletal History: Reports: Hx Arthritis, Hx Back Problems, Hx Fibromyalgia, Hx Osteoporosis Denies: Other Musculoskeletal History Sensory History: Denies: Hx Contacts or Glasses, Hx Hearing Aid Opthamlomology History: Denies: Hx Contacts or Glasses Neurological History: Reports: Hx Headaches, Hx Migraine, Other Neuro Impairments/Disorders - Subarachnoid hemorrhage, Reversible cerebrovascular constriction syndrome Psychiatric History: Reports: Hx Anxiety, Hx Depression Denies: Hx Panic Disorder, Other Psychiatric Issues/Disorders - Cancer History Cancer Type, Location and Year: cervical-no chemo Hx Chemotherapy: No Hx Radiation Therapy: No - Surgical History Surgery Procedure, Year, and Place: cholesystectomy. hysterectomy. lypmh node removed from neck. RIGHT BREAST BIOPSY Hx Anesthesia Reactions: No Infectious Disease History: No Infectious Disease History: Denies: Hx Clostridium Difficile, Hx Hepatitis, Hx Human Immunodeficiency Virus (HIV), Hx of Known/Suspected MRSA, Hx Shingles, Hx Tuberculosis, Hx Known/ Suspected VRE, Hx Known/Suspected VRSA, History Other Infectious Disease, Traveled Outside the [place] in Last 30 Days - Family History Known Family History: Positive: Cardiac Disease, Respiratory Disease - COPD, Other - cancer Negative: Renal Disease, Seizure Disorder, Blood Disorder - Social History Alcohol Use: None Hx Substance Use: No Substance Use Type: Reports: None Hx Tobacco Use: Yes Smoking Status (MU): Heavy Every Day Tobacco Smoker Type: Cigarettes Amount Used/How Often: 1 ppd Length of Time of Smoking/Using Tobacco: 33 years Have You Smoked in the Last Year: Yes Review of Systems Positive: Skin Diaphoresis. Negative: Fever Negative: Sore Throat, Ear Ache, Nasal Discharge Positive: Cough Positive: Nausea. Negative: Abdominal Pain, Vomiting Negative: dysuria, hematuria Positive: Arthralgia Positive: Headache, Weakness All Other Systems Reviewed And Are Negative: Yes Physical Exam - Summary Physical Exam Summary: Constitutional: Well-developed, Well-nourished, Alert. (-) Distressed Skin: Warm, Dry HENT: Normocephalic; Atraumatic Eyes: Conjunctiva normal Neck: Musculoskeletal ROM normal neck. (-) JVD, (-) Stridor, (-) Tracheal deviation Cardio: Rhythm regular, rate normal, Heart sounds normal; Intact distal pulses. Radial pulses are 2+ and symmetric. (-) Murmur Pulmonary/Chest wall: Effort normal. (-) Respiratory distress, (-) Wheezes, (-) Rales Abd: Soft. (-) Tenderness, (-) Distension, (-) Guarding, (-) Rebound Musculoskeletal: (-) Edema Lymph: (-) Cervical adenopathy Neuro: Alert, Oriented x3, Strength normal, Cranial nerves II-XII are grossly intact. (-) Dysmetria, (-) Nystagmus, (-) Ataxia by finger to nose testing, (-) Sensory deficit. Observed by nurse to ambulate steadily. Normal language and speech mentation. Psych: Mood and affect Normal Triage Information Reviewed: Yes Vital Signs On Initial Exam: Initial Vitals Temp Pulse Resp BP Pulse Ox 97.0 F 57 14 130/79 98 12/12/18 08:24 12/12/18 08:24 12/12/18 08:24 12/12/18 08:24 12/12/18 08:24 Vital Signs Reviewed: Yes Procedures - Sedation Patient Received Moderate/Deep Sedation with Procedure: No Diagnostics - Vital Signs Vital Signs Temp Pulse Resp BP Pulse Ox 12/12/18 08:30 56 18 119/70 98 12/12/18 08:29 14 12/12/18 08:24 97.0 F 57 14 130/79 98 - Laboratory Result Diagrams: 12/12/18 09:09 12/12/18 09:09 Lab Statement: Any lab studies that have been ordered have been reviewed, and results considered in the medical decision making process. - Radiology CXR Radiology Interpretation Completed By: Radiologist Summary of Radiographic Findings: No acute cardiopulmonary process by radiograph. ED physician has reviewed this report. - EKG 912 Cardiac Rate: NL - 67bpm EKG Rhythm: Sinus Rhythm ST Segment: Normal Ectopy: None Summary of EKG Findings: EKG at 912 shows NSR at 67bpm with borderline QTc @ 489 and no STEMI. No prior EKG for comparison. ED physician has reviewed and interpreted this report. Re-Evaluation - Re-Evaluation 1st re-eval Re-Evaluation Time: 11:40 Change: Improved Comment: Pt states that her speech has improved. Headache Course/Dx - Course Course Of Treatment: Pt is a 58 y/o F presenting to the ED with a chief complaint of weakness. She states she has had diaphoresis at night recently, and her headache came on yesterday in the occipital region. She was very lightheaded in the shower. She reports difficulty speaking, chronic cough from smoking, pain from arthritis, and nausea. She denies fever, rhinorrhea, sore throat, ear pain, abd pain, vomiting, dysuria, or hematuria. She has not gotten her flu shot yet this year. On exam, the pt has a completely normal neurological exam, including normal gait as observed by the nurse, and normal speech and language. In the ED course, the pt was given 20mg Pepcid, 15mg Toradol, 4mg Zofran, and 1L LR. EKG at 0913 shows NSR at 67bpm with borderline QTc @ 489 and no STEMI. No prior EKG for comparison. CXR shows: No acute cardiopulmonary process by radiograph. Lab results are all within normal limits. Pt will be d/c'ed with dx of viral syndrome. She is stable and agreeable with this plan. - Diagnoses Provider Diagnoses: Viral syndrome Discharge ED - Sign-Out/Discharge Documenting (check all that apply): Patient Departure - Discharge Plan Condition: Stable Disposition: HOME Patient Education Materials: Viral Syndrome (ED) Referrals: Bo Scott DO [Primary Care Provider] - - Billing Disposition and Condition Condition: STABLE Disposition: Home - Attestation Statements Document Initiated by Rick: Yes Documenting Scribe: Stephanie Zelaya Provider For Whom Rick is Documenting (Include Credential): Junior Pablo MD. Scribe Attestation: Stephanie Crain scribed for Junior Pablo MD. on 12/12/18 at 1847. Scribe Documentation Reviewed: Yes Provider Attestation: The documentation as recorded by the Stephanie bear accurately reflects the service I personally performed and the decisions made by me, Junior Pablo MD. Status of Scribe Document: Viewed
[2018-12-12 09:19] LABS: ABS Basophils 0.1 10^3/ul (0-0.2); ABS Eosinophils 0.1 10^3/ul (0-0.6); ABS Lymphocytes 1.9 10^3/ul (1.0-4.8); ABS Monocytes 0.6 10^3/ul (0-0.8); ABS Neutrophils 6.1 10^3/ul (1.5-7.7); Eosinophil % 1.6 %; Hematocrit 42 % (35-47); Hemoglobin 14.4 g/dL (12.0-16.0); Lymphocyte % 21.3 %; Mean Corpuscular HGB Conc 34 g/dL (31-36); Mean Corpuscular Hemoglobin 31 pg (27-31); Mean Corpuscular Volume 91 fL (80-97); Mean Platelet Volume 7.5 fL (7.4-10.4); Platelet Count 241 10^3/uL (150-450); Red Blood Count 4.64 10^6 /uL (3.70-4.87); Red Cell Distribution Width 15 % (10-15); White Blood Count 8.8 10^3/uL (3.5-10.8)
[2018-12-12 09:36] LABS: BUN/Creatinine Ratio 12.1 (8-20); Calcium 9.3 mg/dL (8.6-10.3); EGFR African American 76.6 (>60); EGFR Non-African American 63.3 (>60); Potassium 4.4 mmol/L (3.5-5.0)
[2018-12-12 09:39] LABS: Troponin I 0.01 ng/mL (<0.04)
[2018-12-12 10:00] LABS: Influenza A Molecular NEGATIVE (Negative); Influenza B Molecular NEGATIVE (Negative)
[2018-12-12 10:10] LABS: Urine Appearance Clear; Urine Bacteria Absent (Absent); Urine Bilirubin Negative (Negative); Urine Blood Negative (Negative); Urine Color Straw; Urine Glucose Negative (Negative); Urine Ketones Negative (Negative); Urine Nitrite Negative (Negative); Urine Protein Negative (Negative); Urine Red Blood Cell Trace(0-2/hpf) (Absent); Urine Specific Gravity 1.002 (1.010-1.030); Urine Squamous Epithelial Cell Present (Absent); Urine Urobilinogen Negative (Negative); Urine White Blood Cell Trace(0-5/hpf) (Absent)
[2018-12-12 11:52] VITALS: BP 104/69
--- NOTE | 2018-12-15 08:31 | ED ---
Imaging and Labs Follow Up Follow Up Type: Labs/Cultures Labs/Culture Result: E coli 100,000 - trace on UA, squam cells - contaminant likely Patient Communication/Plan: according to note, pt has no UTI symptoms Pt will not be treated at this time Provider Diagnoses: Viral syndrome
== END 2018-12-12 11:55 | disposition home or self-care (01) ==
LOC: ED 08:18
DX: B34.9 Viral infection, unspecified (principal); J44.9 Chronic obstructive pulmonary disease, unspecified; F41.9 Anxiety disorder, unspecified; F32.9 Major depressive disorder, single episode, unspecified; F17.210 Nicotine dependence, cigarettes, uncomplicated; Z90.49 Acquired absence of other specified parts of digestive tract; Z90.710 Acquired absence of both cervix and uterus; Z85.41 Personal history of malignant neoplasm of cervix uteri; Z79.899 Other long term (current) drug therapy; Z88.5 Allergy status to narcotic agent; Z88.0 Allergy status to penicillin; Z88.8 Allergy status to other drugs, medicaments and biological substances
CPT/HCPCS: 36415; 71046; 80048; 81003; 81015; 84484; 85025; 87077; 87086; 87186; 93005; 96361; 96374; 96375; 99283; J1885; J2405

== ENCOUNTER 2023-06-24 13:05 | Observation (INO) ==
[2023-06-24] MEDS: Iodixanol (CONTRAST) 320 MG/ML 100 ML SDV IV ONE (13:29)
[2023-06-24 13:51] LABS: ABS Basophils 0.1 10^3/uL (0.0-0.1); ABS Eosinophils 0.1 10^3/uL (0.0-0.5); ABS Lymphocytes 2.6 10^3/uL (1.0-4.8); ABS Monocytes 0.4 10^3/uL (0.0-0.9); ABS Neutrophils 3.8 10^3/uL (1.5-7.6); Eosinophil % 1.8 %; Hemoglobin 14.6 g/dL (11.5-14.3); Lymphocyte % 36.7 %; Mean Corpuscular Hemoglobin 30.5 pg (27-33); Mean Corpuscular Volume 89.6 fL (80-97); Mean Platelet Volume 7.6 fL (7.5-11.2); Nucleated Red Blood Cells % 0.1 %/100WBC (0.0-0.8); Platelet Count 249 10^3/uL (150-450); Red Cell Distribution Width 14.7 % (12-17)
[2023-06-24 14:02] LABS: INR 1.05 (0.83-1.13)
[2023-06-24] MEDS: Lactated Ringers 1000 ml BAG 1,000 ML IV ONE (14:19)
[2023-06-24] MEDS: Magnesium Sulfate 2 gm BAG 2 GM/50 ML BAG IVPB ONE (14:20)
[2023-06-24 14:37] LABS: Albumin 4.1 g/dL (3.2-5.2); Calcium 9.2 mg/dL (8.6-10.3); Creatinine, Serum 0.84 mg/dL (0.51-0.95); Direct Bilirubin 0.1 mg/dL (0.03-0.18); Globulin 2.1 g/dL (2-4); HDL Cholesterol 67.3 mg/dL; Indirect Bilirubin 0.4 mg/dL (0.3-1.0); Potassium 4.4 mmol/L (3.5-5.0); Total Bilirubin 0.5 mg/dL (0.2-1.0); Total Protein 6.2 g/dL (6.4-8.9)
[2023-06-24 14:39] LABS: Urine Appearance Clear; Urine Bilirubin Negative (Negative); Urine Blood Negative (Negative); Urine Color Colorless; Urine Glucose Negative (Negative); Urine Ketones Negative (Negative); Urine Nitrite Negative (Negative); Urine Protein Negative (Negative); Urine Specific Gravity 1.026 (1.002-1.030); Urine Urobilinogen Negative (Negative); Urine pH 6.5 (5.0-8.0)
[2023-06-24 16:18] LABS: High Sensitivity Troponin 1 Hr < 3 pg/mL (<15)
[2023-06-24 17:35] VITALS: BP 121/62
[2023-06-24] MEDS ORDERED: Magnesium Hydroxide LIQ 30 ML UDC PO PRN (17:50)
[2023-06-24] MEDS ORDERED: Polyethylene Glycol 3350 17 GM PACKET PO PRN (17:50)
[2023-06-24] MEDS ORDERED: Senna TAB 8.6 mg TAB PO PRN (17:50)
== END 2023-06-24 19:15 | disposition left against medical advice (07) ==
LOC: EDHOLD 13:05 → ED 13:05 → EDHOLD 19:13
PROVIDERS: ADMIT Internal Medicine; ATTEND Internal Medicine

== ENCOUNTER 2023-09-27 01:50 | Observation (INO) ==
[2023-09-27] MEDS: Iodixanol (CONTRAST) 320 MG/ML 100 ML SDV IV ONE (02:19)
[2023-09-27 02:23] LABS: ABS Eosinophils 0.1 10^3/uL (0.0-0.5); ABS Monocytes 0.6 10^3/uL (0.0-0.9); ABS Neutrophils 4.3 10^3/uL (1.5-7.6); Activated Partial Thrombo Time 30.9 seconds (26.0-38.0); Eosinophil % 1.6 %; Hematocrit 42.4 % (35-45); Hemoglobin 14.6 g/dL (11.5-14.3); INR 1.11 (0.83-1.13); Mean Corpuscular Hemoglobin 30.7 pg (27-33); Mean Corpuscular Hgb Conc 34.4 g/dL (31-36); Mean Corpuscular Volume 89.4 fL (80-97); Mean Platelet Volume 7.7 fL (7.5-11.2); Platelet Count 256 10^3/uL (150-450); Red Blood Count 4.74 10^6/uL (3.63-4.92); Red Cell Distribution Width 14.5 % (12-17); White Blood Count 7.1 10^3/uL (3.8-11.8)
[2023-09-27] MEDS: Acetaminophen IV 1 GM/100ML 1,000 MG/100 ML BAG IV ONE (02:37)
[2023-09-27 03:06] LABS: Albumin 3.9 g/dL (3.2-5.2); Albumin/Globulin Ratio 1.8 (1-3); Calcium 9.1 mg/dL (8.6-10.3); Creatinine, Serum 0.92 mg/dL (0.51-0.95); Direct Bilirubin 0.1 mg/dL (0.03-0.18); Globulin 2.2 g/dL (2-4); Indirect Bilirubin 0.5 mg/dL (0.3-1.0); Potassium 4.1 mmol/L (3.5-5.0); Total Bilirubin 0.6 mg/dL (0.2-1.0); Total Protein 6.1 g/dL (6.4-8.9); eGFR CKD-EPI 69.5 (>60)
[2023-09-27 15:24] VITALS: BP 123/65
== END 2023-09-27 15:24 | disposition home or self-care (01) ==
LOC: ED 01:50 → EDHOLD 01:50
PROVIDERS: ADMIT Hospitalist; ATTEND Hospitalist